=== PATIENT | male | born 1930 | race Caucasian/White ===

== ENCOUNTER 2017-07-21 07:06 | Inpatient (IN) | payer OTHER ==
[2017-07-21 08:08] LABS: Absolute Lymphocytes (CBC) 0.8 K/uL (0.7-4.9); Absolute Monocytes 0.7 K/uL (0.1-1.3); Absolute Neutrophil 11.5 K/uL (1.8-8.0); Basophils % 0.3 % (0-1.3); Hematocrit 40.5 % (39.6-49.0); Lymphocytes % 6.3 % (15.3-44.8); MCH 29.8 pg (27.0-35.0); MCV 90.5 fL (80-100); MPV 8.2 fL (7.6-11.3); Monocytes % 4.9 % (3.3-12.3); RBC Red Blood Cell Count 4.48 M/uL (4.33-5.43)
[2017-07-21 08:20] LABS: Potassium 4.5 mEq/L (3.6-5.0)
[2017-07-21 08:27] LABS: Bilirubin Direct 0.2 mg/dL (0-0.2); Protein, Total 6.8 g/dL (6.0-8.3)
--- NOTE | 2017-07-21 08:33 | RAD REPORT ---
EXAM DESCRIPTION: RAD - Abdomen 1 View (KUB) - 07/21/2017 8:09 am CLINICAL HISTORY: Abdominal pain COMPARISON: CT study July 06 FINDINGS: Contrast material is present in the GI tract. There is a moderately large stool volume pre sent particularly in the right side colon. No extravasation of contrast seen. There is no large or sm all bowel obstruction seen. No free air or pneumatosis. Numerous surgical clips are seen in the mid r ight-sided lower left side abdomen. Biliary stent is in place in the right upper quadrant appearing p roperly positioned. Air is identifiable within the biliary tree, not unexpected with the stent in kirt ce. Lower lumbar degenerative changes. No acute bone finding. IMPRESSION: Biliary stent is in place appearing well positioned. Pneumobilia is present, normal when a stent is in place. Large stool volume in the colon. No obstruction, free air or other emergent finding.
[2017-07-21 09:57] LABS: Urine Blood NEGATIVE (NEG); Urine Glucose TRACE (NEG); Urine Protein TRACE (NEG); Urine pH 5.5 (5.0-7.0)
[2017-07-21 09:59] LABS: Urine Bacteria <20 /HPF (NONE SEEN); Urine Culture Reflex Order NOT NEEDED; Urine Mucus SLIGHT /HPF (NONE SEEN); Urine RBC <5 /HPF (NONE SEEN)
--- NOTE | 2017-07-21 10:20 | RAD REPORT ---
EXAM DESCRIPTION: CTAbdomen Pelvis W Contrast - 07/21/2017 10:00 am CLINICAL HISTORY: Abdominal pain. Recent ERCP COMPARISON: 07/06/2017 TECHNIQUE: Biphasic CT imaging of the abdomen and pelvis was performed with 100 ml non-ionic IV cont rast. All CT scans are performed using dose optimization technique as appropriate and may include automated exposure control or mA/KV adjustment according to patient size. FINDINGS: Mild linear subsegmental atelectasis is present both lung bases.Small hiatal hernia is pre sent. Moderate dilatation of the gallbladder and biliary tree is present. Mild pericholecystic inflammatory changes are identified. Moderate pneumobilia is seen with a common bile duct stent in place. No aggr essive liver lesion seen. The spleen, pancreas and adrenal glands are within normal limits. Small rig ht renal cysts are present. Inferior right renal cortical cyst measuring 16 x 12 mm is noted. [address] one is present in the inferior calyx of the left kidney without hydronephrosis. No bowel obstruction, free air, free fluid or abscess. Small fat containing ventral hernia is present . Postsurgical changes are seen involving the anterior abdominal wall. Wide neck hernia along the ant erior abdominal wall inferiorly containing transverse colon is again noted, without acute component. Fat containing inguinal hernias are present bilaterally, greater on the left. Sigmoid diverticulosis is seen without diverticulitis The appendix is normal. Aortic atherosclerosis. No evidence of signifi cant lymphadenopathy. No suspicious bony findings. IMPRESSION: Common bile duct stent is in place with prominent pneumobilia is seen. The gallbladder i s distended mildly with mild pericholecystic inflammatory changes. No peripancreatic inflammatory changes seen. 6 mm stone in the right kidney without hydronephrosis. Mild sigmoid diverticulosis coli without diverticulitis.
[2017-07-21 10:25] LABS: Blood Morphology Comment NOT SEEN (NOT SEEN); Platelet Estimate ADEQ; Urine White Blood Cell Casts OK
--- NOTE | 2017-07-21 10:53 | EDPHYS ---
Physician Documentation [facility] Name: Valente Armas Age: 86 yrs Sex: Male : 1930 Arrival Date: 07/21/2017 Time: 07:10 Bed 14 Private MD: Hermelindo Serra V ED Physician Junito Calvo HPI: 07/21 07:20 This 86 yrs old Male presents to ER via Unassigned with complaints of rn Abdominal Pain. 07:20 The patient presents with abdominal pain right lower quadrant. Onset: The rn symptoms/episode began/occurred last night. The symptoms do not radiate. Associated signs and symptoms: Pertinent positives: nausea, Pertinent negatives: anorexia, blood in stools, chest pain, constipation, diarrhea, dysuria, fever, shortness of breath, testicular pain, vomiting, vomiting blood. Modifying factors: The symptoms are alleviated by nothing, the symptoms are aggravated by touching the area. Severity of pain: At its worst the pain was moderate in the emergency department the pain has improved. The patient has experienced similar episodes in the past. Reports has been having intermittent abd pain for " a while", reports had ERCP performed yesterday for gallstone, states was having a little pain after procedure, got worse at night, now better, assoc with nausea, no fever/vomiting/diarrhea, states this abd pain a little different from previous abd pain. . Historical: - Allergies: 07:30 No Known Allergies; jl7 - Home Meds: 09:34 Benadryl 25 mg Oral cap [Active]; Co Q-10 oral oral [Active]; Eliquis 2.5 mg oral tab 1 jl7 tab [Active]; folic acid 1 mg Oral tab [Active]; furosemide 40 mg Oral tab 1 tab [Active]; Klor-Con 10 10 mEq Oral TbER [Active]; Lantus 100 unit/mL Sub-Q soln [Active]; Nexium 40 mg Oral cpDR 1 cap once daily [Active]; Novolog 100 unit/mL Sub-Q soln [Active]; amiodarone 100 mg Oral tab 1 tab once daily [Active]; simvastatin 40 mg Oral tab 1 tab once daily [Active]; metoprolol tartrate 25 mg Oral tab [Active]; valsartan 320 mg oral tab 1 tab once daily [Active]; VITEYES twice a day [Active]; - PMHx: 07:30 Diabetes - IDDM; Atrial Fib; GERD; Hyperlipidemia; Hypertension; jl7 09:34 macular degeneration; jl7 - PSHx: 07:30 CABG; Intestinal Sx; jl7 - Immunization history:: Adult Immunizations up to date. - Family history:: not pertinent. - Social history:: Smoking status: Patient/guardian denies using tobacco. - Hospitalizations: : No recent hospitalization is reported. ROS: 07:20 Constitutional: Negative for fever, chills, and weight loss, Eyes: Negative for injury, rn pain, redness, and discharge, Neck: Negative for injury, pain, and swelling, Cardiovascular: Negative for chest pain, palpitations, and edema, Respiratory: Negative for shortness of breath, cough, wheezing, and pleuritic chest pain, Abdomen/GI: Negative for vomiting, diarrhea, and constipation, Back: Negative for injury and pain, MS/Extremity: Negative for injury and deformity, Skin: Negative for injury, rash, and discoloration, Neuro: Negative for headache, weakness, numbness, tingling, and seizure. Exam: 07:20 Constitutional: This is a well developed, well nourished patient who is awake, alert, rn and in no acute distress. Head/Face: Normocephalic, atraumatic. Cardiovascular: Regular rate and rhythm with a normal S1 and S2. No gallops, murmurs, or rubs. Respiratory: Lungs have equal breath sounds bilaterally, clear to auscultation and percussion. No rales, rhonchi or wheezes noted. No increased work of breathing, no retractions or nasal flaring. Abdomen/GI: soft, mild tenderness RLQ, no rebound, small periumbilical hernia that is easily reducible, bilateral healing ecchymosis RLQ/LLQ, no peritoneal signs. Skin: Warm, dry with normal turgor. Normal color with no rashes, no lesions, and no evidence of cellulitis. MS/ Extremity: Pulses equal, no cyanosis. Neurovascular intact. Full, normal range of motion. Equal circumference. Neuro: Awake and alert, GCS 15, oriented to person, place, time, and situation. Cranial nerves II-XII grossly intact. Motor strength 5/5 in all extremities. Sensory grossly intact. Vital Signs: 07:30 BP 140 / 88; Pulse 78; Resp 14 S; Pulse Ox 98% on R/A; Weight 72.57 kg (R); Height 5 jl7 ft. 6 in. (167.64 cm) (R); Pain 5/10; 08:30 BP 133 / 60; Pulse 60; Resp 14 S; Pulse Ox 99% on R/A; jl7 09:16 BP 124 / 60; Pulse 63; Resp 16 S; Pulse Ox 96% on R/A; jl7 10:20 BP 136 / 65; Pulse 62; Resp 18; Pulse Ox 98% ; Pain 3/10; jl7 07:30 Body Mass Index 25.82 (72.57 kg, 167.64 cm) jl7 MDM: 07:12 Patient medically screened. rn 10:50 ED course: Consulted with Dr. Benton, concern on their part was that patient has rn cholangitis, they sent prescription for abx, but unsure if patient picked it up, will admit to Dr. serra with Dr. Benton consult. Will defer surgical consult to Dr. Serra/Dr. Benton. Abx given.. 07/21 07:19 Order name: Basic Metabolic Panel; Complete Time: 09:20 rn 07/21 07:19 Order name: CBC with Diff; Complete Time: 10:30 rn 07/21 07:19 Order name: Hepatic Function; Complete Time: 09:20 rn 07/21 07:19 Order name: Lipase; Complete Time: 09:20 rn 07/21 07:19 Order name: Urine Microscopic Only; Complete Time: 10:30 rn 07/21 08:11 Order name: CBC Smear Scan; Complete Time: 10:30 EDMS 07/21 07:19 Order name: IV Saline Lock; Complete Time: 07:49 rn 07/21 07:19 Order name: Labs collected and sent; Complete Time: 07:49 rn 07/21 07:19 Order name: Urine Dipstick-Ancillary (obtain specimen); Complete Time: 09:01 rn 07/21 07:19 Order name: CT Abd/Pelvis - W/Contrast; Complete Time: 10:30 rn 07/21 07:19 Order name: XRAY KUB; Complete Time: 09:20 rn 07/21 08:30 Order name: Urine Dipstick--Ancillary (enter results); Complete Time: 10:30 mw2 Administered Medications: 11:18 Drug: Rocephin - (cefTRIAXone) 1 grams Route: IVPB; Infused Over: 2 mins; Site: right jl7 antecubital; 11:20 Follow up: IV Status: Completed infusion 7 11:23 Drug: Flagyl 500 mg Volume: 100 ml; Route: IVPB; Rate: 200 ml/hr; Infused Over: 30 jl7 mins; Site: right antecubital; 12:06 Follow up: Response: No adverse reaction; IV Status: Completed infusion 7 Disposition: 07/21/17 10:52 Hospitalization ordered by Hermelindo Serra for Inpatient Admission. Preliminary diagnosis is Cholangitis. - Bed requested for Telemetry/MedSurg (Inpatient). - Status is Inpatient Admission. jl - Condition is Stable. - Problem is an ongoing problem. - Symptoms have improved. UTI on Admission? No Signatures: Dispatcher [employer] EDJunito Anton MD MD rn Leal, Jahala, RN RN [facility] Dung Gottlieb mw2
--- NOTE | 2017-07-21 10:53 | ER ---
Nurse's Notes [facility] Name: Valente Armas Age: 86 yrs Sex: Male : 1930 Arrival Date: 07/21/2017 Time: 07:10 Bed 14 Private MD: Hermelindo Serra V Diagnosis: Cholangitis Presentation: 07/21 07:25 Presenting complaint: Patient states: Stone removal yesterday from duct, lower right jl7 quadrant pain began last night. Reports nausea, denies V/D, took a Zofran prior to arrival. Transition of care: patient was not received from another setting of care. Onset of symptoms was July 21, 2017. Care prior to arrival: None. 07:25 Method Of Arrival: Ambulatory [facility] 07:25 Acuity: BEBETO 3 jl7 07:30 Initial Sepsis Screen: Does the patient meet any 2 criteria? No. Patient's initial jl7 sepsis screen is negative. Does the patient have a suspected source of infection? No. Patient's initial sepsis screen is negative. Triage Assessment: 07:25 General: Appears in no apparent distress. uncomfortable, Behavior is calm, cooperative, jl7 appropriate for age. Pain: Complains of pain in right lower quadrant Pain does not radiate. Pain currently is 5 out of 10 on a pain scale. Quality of pain is described as aching, dull, Pain began 1 day ago. Is continuous, Alleviated by medications. EENT: No signs and/or symptoms were reported regarding the EENT system. Neuro: Level of Consciousness is awake, alert, obeys commands, Oriented to person, place, time, situation. Cardiovascular: Patient's skin is warm and dry. Respiratory: Airway is patent Respiratory effort is even, unlabored, Respiratory pattern is regular, symmetrical. GI: Abdomen is round non-distended, Abd is soft X 4 quads Abdomen is tender to palpation in right lower quadrant. : No signs and/or symptoms were reported regarding the genitourinary system. Derm: Skin is pink, warm \\T\\ dry. Musculoskeletal: No signs and/or symptoms reported regarding the musculoskeletal system. Historical: - Allergies: 07:30 No Known Allergies; jl7 - Home Meds: 09:34 Benadryl 25 mg Oral cap [Active]; Co Q-10 oral oral [Active]; Eliquis 2.5 mg oral tab 1 jl7 tab [Active]; folic acid 1 mg Oral tab [Active]; furosemide 40 mg Oral tab 1 tab [Active]; Klor-Con 10 10 mEq Oral TbER [Active]; Lantus 100 unit/mL Sub-Q soln [Active]; Nexium 40 mg Oral cpDR 1 cap once daily [Active]; Novolog 100 unit/mL Sub-Q soln [Active]; amiodarone 100 mg Oral tab 1 tab once daily [Active]; simvastatin 40 mg Oral tab 1 tab once daily [Active]; metoprolol tartrate 25 mg Oral tab [Active]; valsartan 320 mg oral tab 1 tab once daily [Active]; VITEYES twice a day [Active]; - PMHx: 07:30 Diabetes - IDDM; Atrial Fib; GERD; Hyperlipidemia; Hypertension; jl7 09:34 macular degeneration; jl7 - PSHx: 07:30 CABG; Intestinal Sx; jl7 - Immunization history:: Adult Immunizations up to date. - Family history:: not pertinent. - Social history:: Smoking status: Patient/guardian denies using tobacco. - Hospitalizations: : No recent hospitalization is reported. Screenin:52 Abuse screen: Denies threats or abuse. Denies injuries from another. Nutritional jl7 screening: No deficits noted. Tuberculosis screening: No symptoms or risk factors identified. Fall Risk IV access (20 points). Total Barriga Fall Scale indicates No Risk (0-24 pts). Assessment: 07:52 General: see triage assessment. GI: Bowel sounds present X 4 quads. jl7 08:01 Reassessment: Pt done drinking oral contrast, CT notified. jl7 09:00 Reassessment: No changes from previously documented assessment. Patient and/or family jl7 updated on plan of care and expected duration. Pain level reassessed. Patient is alert, oriented x 3, equal unlabored respirations, skin warm/dry/pink. 09:48 Reassessment: Pt to CT. jl7 10:20 Reassessment: Pt returned from CT. Pt states "I'm feeling much better. My pain is down jl7 to a 2 or 3 now.". 11:30 Reassessment: Patient and/or family updated on plan of care and expected duration. Pain jl7 level reassessed. Patient is alert, oriented x 3, equal unlabored respirations, skin warm/dry/pink. Vital Signs: 07:30 BP 140 / 88; Pulse 78; Resp 14 S; Pulse Ox 98% on R/A; Weight 72.57 kg (R); Height 5 jl7 ft. 6 in. (167.64 cm) (R); Pain 5/10; 08:30 BP 133 / 60; Pulse 60; Resp 14 S; Pulse Ox 99% on R/A; jl7 09:16 BP 124 / 60; Pulse 63; Resp 16 S; Pulse Ox 96% on R/A; jl7 10:20 BP 136 / 65; Pulse 62; Resp 18; Pulse Ox 98% ; Pain 3/10; jl7 07:30 Body Mass Index 25.82 (72.57 kg, 167.64 cm) jl7 ED Course: 07:10 Patient arrived in ED. mr 07:10 Hermelindo Serra MD is Private Physician. mr 07:11 Michael Horton RN is Primary Nurse. jl7 07:12 Junito Calvo MD is Attending Physician. rn 07:27 Triage completed. jl7 07:30 Arm band placed on right wrist. jl7 07:50 Radiology exam delayed due to nurses drawing labs. jb2 07:52 Patient has correct armband on for positive identification. Placed in gown. Bed in low jl7 position. Call light in reach. Side rails up X 1. athletic monitor on. Pulse ox on. NIBP on. Warm blanket given. 07:52 Initial lab(s) drawn, by ne, sent to lab. Urine collected: clean catch specimen. jl7 Inserted saline lock: 20 gauge in right antecubital area, using aseptic technique. Blood collected. 08:06 X-ray completed. Patient tolerated procedure well. Patient moved to radiology via jb2 wheelchair. 08:06 XRAY KUB In Process Unspecified. EDMS 10:00 CT Abd/Pelvis - W/Contrast In Process Unspecified. EDMS 10:02 CT completed. Patient tolerated procedure well. Patient moved to CT via stretcher. Patient moved back from CT. 10:51 Hermelindo Serra MD is Hospitalizing Provider. rn 12:56 No provider procedures requiring assistance completed. Patient admitted, IV remains in jl7 place. intact, No redness/swelling at site. Administered Medications: 11:18 Drug: Rocephin - (cefTRIAXone) 1 grams Route: IVPB; Infused Over: 2 mins; Site: right jl7 antecubital; 11:20 Follow up: IV Status: Completed infusion jl7 11:23 Drug: Flagyl 500 mg Volume: 100 ml; Route: IVPB; Rate: 200 ml/hr; Infused Over: 30 jl7 mins; Site: right antecubital; 12:06 Follow up: Response: No adverse reaction; IV Status: Completed infusion jl7 Outcome: 10:52 Decision to Hospitalize by Provider. rn 12:56 Admitted to Med/surg accompanied by tech, family with patient, via wheelchair, room jl7 216, with chart, Report called to ALEAH Partida 12:56 Condition: stable 12:56 Discharge instructions given to patient, family, Instructed on the need for admit, Demonstrated understanding of instructions. 13:16 Patient left the ED. 7 Signatures: Dispatcher [employer] Shellie JoseannieDarwin Susan sj Nieto, Roman, MD MD rn Leal, Jahala, RN RN [facility]
[2017-07-21] MEDS ORDERED: METRONIDAZOLE 500mg IVPB 500 MG/100 ML BAG IV ONE (11:02)
[2017-07-21] MEDS ORDERED: CEFTRIAXONE/SWI 1gm 1 GM/10 ML SYR ONE (11:02)
[2017-07-21] MEDS ORDERED: Morphine 2 MG/2 ML SYR IV PRN (12:55)
[2017-07-21] MEDS ORDERED: ACETAMINOPHEN 500 MG TAB PO PRN (12:55)
[2017-07-21] MEDS ORDERED: ONDANSETRON 4 MG/2 ML VIAL IV PRN (12:55)
[2017-07-21] MEDS: D5 0.45 NS 1,000 ML IV SCH ×2 (15:08→20:55)
[2017-07-21 15:46] VITALS: BMI 23.6
[2017-07-21] MEDS: METRONIDAZOLE 500mg IVPB 500 MG/100 ML BAG IV SCH (18:08)
--- NOTE | 2017-07-21 19:37 | P.HP ---
Certification for Inpatient Patient admitted to: Inpatient With expected LOS: >2 Midnights Practitioner: I am a practitioner with admitting privileges, knowledge of patient current condition, hospital course, and medical plan of care. Services: Services provided to patient in accordance with Admission requirements found in Title 42 Section 412.3 of the Code of Federal Regulations Patient History Date of Service: 07/21/17 Reason for admission: ABDOMEN PAIN SP ERCP History of Present Illness: MR. KEN HAS HAD ERCP FOR STONES IN BILE DUCT. HE HAS LARGE STONES PER DR. SYED. HE IS HERE WITH ABDOMEN PAIN AND RADIATION TO BACK. HIS LIPASE IS 242. HE HAS POST ERCP PANCREATITIS. NOW WHEN I SAW HIM AT LUNCH , HE IS FEELING A LOT BETTER. Allergies No Known Drug Allergies Allergy (Verified 03/23/14 16:56) Unknown No Known Allergies Allergy (Uncoded 07/21/17 13:20) Unknown Home Medications: Amiodarone HCl [Pacerone] 100 mg PO BEDTIME 07/21/17 Apixaban [Eliquis] 2.5 mg PO DAILY 07/21/17 Diphenhydramine HCl [Benadryl] 12.5 mg PO BEDTIME 07/21/17 Esomeprazole Mag Trihydrate [Nexium] 40 mg PO DAILY 07/21/17 Folic Acid 1 mg PO DAILY 07/21/17 Furosemide [Lasix] 40 mg PO M,,07/21/17 Insulin Aspart [Novolog Flexpen] 7 unit SQ TID 07/21/17 Insulin Glargine,Hum.rec.anlog [Lantus Solostar] 30 units SQ DAILY 07/21/17 Metoprolol Succinate [Toprol Xl] 25 mg PO BID 07/21/17 Multivitamin [Multivitamins] 1 each PO DAILY 07/21/17 Potassium Oral Tab [Klor-Con 10 mEq Tab] 10 meq PO M,W,F 07/21/17 Simvastatin [Simvastatin] 40 mg PO DAILY 07/21/17 Ubidecarenone/Vit E/Vit E Mix [Co-Enzyme Q10 100 mg Softgel] 200 mg PO BID 07/21 Valsartan [Valsartan] 320 mg PO DAILY 07/21/17 - Past Medical/Surgical History Has patient received pneumonia vaccine in the past: Yes Diabetic: Yes -: flu -: iddm -: gerd -: dysrhythmia -: DE -: CABAG -: intestinal surgery -: ERCP -: CATARAT -: prostate sx - Family History parents -: Heart disease - Social History Smoking Status: Never smoker Alcohol use: No CD- Drugs: No Caffeine use: No Place of Residence: Home Review of Systems 10-point ROS is otherwise unremarkable General: Weakness, Malaise Physical Examination - Vital Signs Temperature: 98.2 F Blood Pressure: 145/78 Pulse: 70 Respirations: 18 Pulse Ox (%): 99 - Physical Exam General: Alert, In no apparent distress HEENT: Atraumatic, PERRLA, Mucous membr. moist/pink, EOMI, Sclerae nonicteric Neck: Supple, 2+ carotid pulse no bruit, No LAD, Without JVD or thyroid abnormality Respiratory: Clear to auscultation bilaterally, Normal air movement Cardiovascular: Regular rate/rhythm, Normal S1 S2 Gastrointestinal: No ascites, No tenderness (MULTIPLE INCISIONAL HERNIAS IN ABDOMEN) Musculoskeletal: No tenderness Integumentary: No rashes Neurological: Normal gait, Normal speech, Normal strength at 5/5 x4 extr, Normal tone, Normal affect Lymphatics: No axilla or inguinal lymphadenopathy - Studies Laboratory Data (last 24 hrs) 07/21/17 07:45: WBC 13.5 H, Hgb 13.4 L, Hct 40.5, Plt Count 250 07/21/17 07:45: Sodium 137, Potassium 4.5, BUN 16, Creatinine 1.16, Glucose 207 H, Total Bilirubin 1.0, AST 20, ALT 18, Alkaline Phosphatase 118, Lipase 248 H Assessment and Plan - Problems (Diagnosis) (1) Pancreatitis Current Visit: Yes Status: Acute Plan: SP ERCP STABLE EXPECTED. DC N A DAY OR TWO FULL LIQUIDS IV ABX. (2) Atrial fibrillation Current Visit: No Status: Chronic Plan: NO CHANGES. RESUME MEDS - Advance Directives Does patient have a Living Will: No Does patient have a Durable POA for Healthcare: No
[2017-07-21] MEDS ORDERED: DIPHENHYDRAMINE 25 MG TAB/CAP PO SCH (21:00)
[2017-07-21] MEDS ORDERED: AMIODARONE HCL 200 MG TAB PO SCH (21:00)
[2017-07-21] MEDS: CEFTRIAXONE/SWI 1gm 1 GM/10 ML SYR IV SCH (21:32)
[2017-07-21] MEDS: METOPROLOL XL 25 MG TAB PO SCH (21:33)
[2017-07-21] MEDS: INSULIN LISPRO 100 UNIT/1 ML SQ SCH (23:10)
[2017-07-22 01:47] VITALS: O2SAT 97
[2017-07-22] MEDS: METRONIDAZOLE 500mg IVPB 500 MG/100 ML BAG IV SCH ×2 (02:06→09:00)
[2017-07-22] MEDS: D5 0.45 NS 1,000 ML IV SCH (02:08)
[2017-07-22 05:30] LABS: Absolute Lymphocytes (CBC) 1.5 K/uL (0.7-4.9); Absolute Monocytes 0.8 K/uL (0.1-1.3); Absolute Neutrophil 5.1 K/uL (1.8-8.0); Basophils % 0.6 % (0-1.3); Eosinophils % 7.9 % (0-4.4); Hematocrit 36.4 % (39.6-49.0); MCH 30.2 pg (27.0-35.0); MCV 91.2 fL (80-100); MPV 8.7 fL (7.6-11.3); Monocytes % 9.5 % (3.3-12.3); RBC Red Blood Cell Count 3.99 M/uL (4.33-5.43)
[2017-07-22 05:54] LABS: Albumin 2.9 g/dL (3.2-5.5); Bilirubin Direct 0.2 mg/dL (0-0.2); Bilirubin Total 0.6 mg/dL (0.3-1.2); Potassium 4.6 mEq/L (3.6-5.0); Protein, Total 5.5 g/dL (6.0-8.3)
[2017-07-22] MEDS ORDERED: ATORVASTATIN 20 MG TAB PO SCH (09:00)
[2017-07-22] MEDS: INSULIN LISPRO 100 UNIT/1 ML SQ SCH (09:00)
[2017-07-22] MEDS ORDERED: APIXABAN 2.5 MG TABLET PO SCH (09:00)
[2017-07-22] MEDS ORDERED: PANTOPRAZOLE 40MG TABLET PO SCH (09:00)
[2017-07-22] MEDS ORDERED: FOLIC ACID 1 MG TABLET PO SCH (09:00)
[2017-07-22 09:03] VITALS: BP 140/63; TEMP 97.2
--- NOTE | 2017-07-22 11:04 | CON ---
Date of Consultation: 07/21/2017 Reason For Consultation: Abdominal pain, post ERCP. History Of Present Illness: Mr. Simental is an 86-year-old gentleman, who originally several weeks a go presented with cholangitis due to fever, chills, and sepsis. He underwent ERCP with finding of la rge stone and relatively small biliary ductal opening. Stent was placed, drainage was made. In bo tion to that, the cholangitis was drained. Postoperatively, the patient did fine; however, over the night, he had developed abdominal pain that became severe abdominal pain located in the epigastrium, radiating to the back. Had some nausea. No real vomiting. Denies any fever, chills. No history of hematemesis, melena, or hematochezia. No change of color of urine or stool. As a result, he came t o the emergency room and was admitted. However, upon coming to the hospital, he rapidly improved. At this time, he has only mild epigastric soreness. He is hungry, he wants to eat. Passing gas. Again, no history of hematemesis, melena, o r hematochezia. No fever or chills. Past Medical History: In addition to hypertension, diabetes. Past Surgical History: Not related to above. Family History: Denies any gastrointestinal malignancy in the family. Social History: Unchanged. Psychiatric History: Unchanged. Review of Systems: Unchanged other than above. He did have significant weight loss several weeks prior during the episo jocelyn of cholangitis. Physical Examination: General: Elderly male, at this time no other acute distress noted. He is completely alert, oriented , and able to give very good history. His is sitting on his bedside. His neighbor is on the ot her site, who participated in the care of this elderly couple. HEENT: Atraumatic, normocephalic. No icterus. No new wasting. Oropharyngeal is clear. Neck: Supple. No lymphadenopathy. Trachea central in position. Chest: Clear to auscultation and percussion. Cardiovascular: Normal S1, S2. No S3, no S4. Abdomen: Soft. Minimum tenderness if at all upon palpation. No Webb sign. No rebound tenderness . Bowel sounds are excellent. No hepatomegaly. No splenomegaly. No ascites. No succussion splash . Extremities: Upper and lower extremities are normal, symmetrical. Neurological: Alert and oriented x3. Intact memory, mentation, and judgment. Can move all parts of the extremities. Good sense of humor. Dermatologic: Normal examination on the exposed skin area. No evidence of any icterus or itching no kiko. Diagnostic Data: Reviewed and analyzed. WBC count is borderline elevation likely related to the str ess of the pain. Lipase, pancreatic enzyme is elevated. Liver enzymes are completely normal includi ng bilirubin. Radiologic data reviewed. Impression, Plan, And Recommendation: Mr. Simental is an elderly gentleman, who had difficult biliar y anatomy, severe choledocholithiasis with obstruction that has caused his original cholangitis. Aft er drainage, the cholangitis has resolved. The patient seems to have presented with mild pancreatitis that is already getting better. Given thi s situation, I will introduce his diet, continue to treat him with antibiotic, make rapid oral transi tion. He also states that he does not need any more pain medications. The patient typically behaving like a mild post ERCP pancreatitis. If he tolerates the diet barring any other situation, consider further outpatient treatment. I have communicated with his attending doctor, Dr. Serra and we concurred upon the treatment process. I have discussed with the patient, his family, and his neighbor and answered all of their questions to their satisfaction. They are quite happy. Once the patient is discharged, I will see him as an outpatient in 1-2 weeks. Future plan is to repeat his ERCP to take out any residual stone and the st ent. The patient and his are very clear about the plan of action as before. Therefore, the management otherwise will be unchanged. ALEJANDRA/PORSHA Voice ID: [id number] Report ID: [id number]
[2017-07-22] MEDS: CEFTRIAXONE/SWI 1gm 1 GM/10 ML SYR IV SCH (11:09)
[2017-07-22] MEDS: METOPROLOL XL 25 MG TAB PO SCH (11:09)
[2017-07-22] MEDS ORDERED: POTASSIUM CL SA 10 MEQ TAB PO SCH (17:00)
--- NOTE | 2017-07-22 22:28 | P.DS ---
Admission Date: 07/21/17 Discharge Date: 07/22/17 Disposition: ROUTINE DISCHARGE Discharge Condition: FAIR Reason for Admission: ABDOMEN PAIN SP ERCP - Problems (1) Pancreatitis Onset Date: 07/22/17 Status: Acute (2) Atrial fibrillation Status: Chronic Brief History of Present Illness: MR. KEN HAS HAD ERCP FOR STONES IN BILE DUCT. HE HAS LARGE STONES PER DR. SYED. HE IS HERE WITH ABDOMEN PAIN AND RADIATION TO BACK. HIS LIPASE IS 242. HE HAS POST ERCP PANCREATITIS. NOW WHEN I SAW HIM AT LUNCH , HE IS FEELING A LOT BETTER. HE HAS IMPROVED SIGNIFINCANTLY HE WILL TAKE IT EASY ON FOOD, FU WITH DR Daniel SYED FOR REMOVAL OF MORE STONES AND THEN GB BY SURGEON. Vital Signs/Physical Exam: Temp Pulse Resp BP Pulse Ox 97.2 F 61 18 140/63 98 07/22/17 08:00 07/22/17 08:00 07/22/17 08:00 07/22/17 08:00 07/22/17 08:00 Laboratory Data at Discharge: WBC 8.1 K/uL (4.3-10.9) D 07/22/17 04:24 Hgb 12.1 g/dL (13.6-17.9) L 07/22/17 04:24 Hct 36.4 % (39.6-49.0) L 07/22/17 04:24 Plt Count 195 K/uL (152-406) D 07/22/17 04:24 Sodium 137 mEq/L (135-145) 07/22/17 04:24 Potassium 4.6 mEq/L (3.6-5.0) 07/22/17 04:24 BUN 13 mg/dL (6-20) 07/22/17 04:24 Creatinine 1.08 mg/dL (0.61-1.24) 07/22/17 04:24 Glucose 140 mg/dL (65-120) H 07/22/17 04:24 Total Bilirubin 0.6 mg/dL (0.3-1.2) 07/22/17 04:24 AST 16 IU/L (10-42) 07/22/17 04:24 ALT 11 IU/L (10-60) 07/22/17 04:24 Alkaline Phosphatase 96 IU/L (42-121) 07/22/17 04:24 Lipase 43 U/L (22-51) 07/22/17 04:24 Home Medications: Amiodarone HCl [Pacerone] 100 mg PO BEDTIME 07/21/17 Apixaban [Eliquis *] 2.5 mg PO DAILY 07/21/17 Diphenhydramine HCl [Benadryl] 12.5 mg PO BEDTIME 07/21/17 Esomeprazole Mag Trihydrate [Nexium] 40 mg PO DAILY 07/21/17 Folic Acid 1 mg PO DAILY 07/21/17 Furosemide [Lasix*] 40 mg PO M,W,F 07/21/17 Insulin Aspart [Novolog Flexpen] 7 unit SQ TID 07/21/17 Insulin Glargine,Hum.rec.anlog [Lantus Solostar] 30 units SQ DAILY 07/21/17 Metoprolol Succinate [Toprol Xl*] 25 mg PO BID 07/21/17 Multivitamin [Multivitamins] 1 each PO DAILY 07/21/17 Potassium Oral Tab [Klor-Con 10 mEq Tab*] 10 meq PO M,W,F 07/21/17 Simvastatin 40 mg PO DAILY 07/21/17 Ubidecarenone/Vit E/Vit E Mix [Co-Enzyme Q10 100 mg Softgel] 200 mg PO BID 07/21 Valsartan 320 mg PO DAILY 07/21/17 Patient Discharge Instructions: ORAL LIQUIDS- SOUP,BROTH ETC- UNTIL PAIN IS GONE. Followup: Hermelindo Serra MD [Primary Care Provider] - (Follow up in office in 2 weeks. Call to schedule an appointment. ) Dougie Syed MD [ACTIVE - CAN ADMIT] - (Follow up in [facility] in 2 weeks. Call to schedule an appointment. )
== END 2017-07-22 11:31 | disposition home or self-care (01) | DRG 440 ==
LOC: ER 07:06 → ERHOLD 11:09 → 2ND 12:55
PROVIDERS: ADMIT Internal Medicine; ATTEND Internal Medicine
DX: K85.90 Acute pancreatitis without necrosis or infection, unspecified (principal); I48.2 Chronic atrial fibrillation; E11.9 Type 2 diabetes mellitus without complications; K21.9 Gastro-esophageal reflux disease without esophagitis; I25.2 Old myocardial infarction
CPT/HCPCS: 36415; 74018; 74177; 80048; 80076; 81003; 81015; 82962; 83690; 85025; 96365; 96375; 99285; J0696; Q9967

== ENCOUNTER 2017-08-31 14:32 | Emergency (ER) | payer OTHER ==
[2017-08-31] MEDS ORDERED: ONDANSETRON 4 MG/2 ML VIAL ONE ×2 (15:38→16:44)
[2017-08-31] MEDS ORDERED: MORPHINE 4 MG/ML SYR ONE (15:38)
[2017-08-31 16:09] LABS: Potassium 4.8 mEq/L (3.6-5.0)
[2017-08-31 16:11] LABS: Absolute Lymphocytes (CBC) 1.1 K/uL (0.7-4.9); Absolute Monocytes 0.1 K/uL (0.1-1.3); Absolute Neutrophil 10.6 K/uL (1.8-8.0); Basophils % 0.2 % (0-1.3); Eosinophils % 2.4 % (0-4.4); Hematocrit 45.1 % (39.6-49.0); Lymphocytes % 8.8 % (15.3-44.8); MCH 30.1 pg (27.0-35.0); MPV 9.4 fL (7.6-11.3); Monocytes % 1.1 % (3.3-12.3); RBC Red Blood Cell Count 4.95 M/uL (4.33-5.43)
[2017-08-31 16:14] LABS: Protime INR 1.02
[2017-08-31 16:15] LABS: Albumin 4.2 g/dL (3.2-5.5); Protein, Total 7.5 g/dL (6.0-8.3)
--- NOTE | 2017-08-31 18:05 | RAD REPORT ---
EXAM DESCRIPTION: CTAbdomen Pelvis W Contrast - 08/31/2017 5:29 pm CLINICAL HISTORY: Abdominal pain. COMPARISON: 07/21/2017, 07/06/2017 TECHNIQUE: Biphasic CT imaging of the abdomen and pelvis was performed with 100 ml non-ionic IV cont rast. All CT scans are performed using dose optimization technique as appropriate and may include automated exposure control or mA/KV adjustment according to patient size. FINDINGS: The lung bases are clear.Trace pleural fluid bilaterally. Small hiatal hernia. Significant amount of contrast is present in the common bile duct and gallbladder. Moderate pneumobil ia is seen, increased since the prior study. Patchy arterial phase enhancement is seen throughout the liver with enhancement noted around the portal triads. The spleen, pancreas, adrenal glands are normal. A 6 mm stone is present in the inferior left kidney. Multiple cysts are present in both renal cortices. A small rim calcification is present inferior rig ht kidney cyst. No bowel obstruction, free air, free fluid or abscess. Prominent sigmoid diverticulosis coli without diverticulitis. Postsurgical changes are present about the small bowel and colon. The appendix is nor mal. No evidence of significant lymphadenopathy. No suspicious bony findings. IMPRESSION: Prominent pneumobilia, arterial phase enhancement surrounding the portal triads, contras t in the biliary tree are all favored to be related to recent intervention. A common bile duct stent is not clearly seen. Consider a follow-up study if patient's symptomology persists or progresses.
[2017-08-31 18:12] LABS: Blood Morphology Comment NOT SEEN (NOT SEEN); Platelet Estimate DECR
--- NOTE | 2017-08-31 19:38 | EDPHYS ---
Physician Documentation [facility] Name: Valente Armas Age: 86 yrs Sex: Male : 1930 Arrival Date: 08/31/2017 Time: 14:35 Bed External Waiting Private MD: Hermelindo Serra V ED Physician Brad Pete HPI: 08/31 16:00 This 86 yrs old Male presents to ER via Ambulatory with complaints of pm1 Abdominal Pain. 16:00 The patient presents with abdominal pain in the right upper quadrant. Onset: The pm1 symptoms/episode began/occurred today. The symptoms do not radiate. Associated signs and symptoms: Pertinent positives: nausea, Pertinent negatives: chest pain, dysuria, fever, shortness of breath, vomiting. The symptoms are described as achy. Modifying factors: The symptoms are alleviated by nothing, the symptoms are aggravated by nothing. Severity of pain: in the emergency department the pain is actually worse. The patient has been recently seen by a physician: Dr. Benton with similar presenting complaints, and a MRI was done. Patient with RUQ pain for about 8 weeks. Was admitted 6 weeks ago for cholangitis and had stent to CBD and removal of stones by Dr. Benton. Patient was seen at Dr. Benton's office today and had ERCP with removal of the stent and additional gallbladder stones. Patient was cleared to have his gallbladder removed by Dr. Benton. Patient with increased RUQ pain after procedure and feels that he cannot wait to have his gallbladder removed by the surgeon in [place] . 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 - Social history:: Smoking status: Patient/guardian denies using tobacco. - Ebola Screening: : No symptoms or risks identified at this time. ROS: 16:00 Constitutional: Negative for fever, chills, and weight loss, Eyes: Negative for injury, pm1 pain, redness, and discharge, ENT: Negative for injury, pain, and discharge, Neck: Negative for injury, pain, and swelling, Cardiovascular: Negative for chest pain, palpitations, and edema, Respiratory: Negative for shortness of breath, cough, wheezing, and pleuritic chest pain. 16:00 Back: Negative for injury and pain, : Negative for injury, bleeding, discharge, and swelling, MS/Extremity: Negative for injury and deformity, Skin: Negative for injury, rash, and discoloration, Neuro: Negative for headache, weakness, numbness, tingling, and seizure. 16:00 Abdomen/GI: Positive for abdominal pain, nausea, Negative for vomiting, diarrhea, constipation. Exam: 16:00 Constitutional: This is a well developed, well nourished patient who is awake, alert, pm1 and in no acute distress. Head/Face: Normocephalic, atraumatic. Eyes: Pupils equal round and reactive to light, extra-ocular motions intact. Lids and lashes normal. Conjunctiva and sclera are non-icteric and not injected. Cornea within normal limits. Periorbital areas with no swelling, redness, or edema. ENT: Nares patent. No nasal discharge, no septal abnormalities noted. Tympanic membranes are normal and external auditory canals are clear. Oropharynx with no redness, swelling, or masses, exudates, or evidence of obstruction, uvula midline. Mucous membranes moist. Neck: Trachea midline, no thyromegaly or masses palpated, and no cervical lymphadenopathy. Supple, full range of motion without nuchal rigidity, or vertebral point tenderness. No Meningismus. Chest/axilla: Normal chest wall appearance and motion. Nontender with no deformity. No lesions are appreciated. Cardiovascular: Regular rate and rhythm with a normal S1 and S2. No gallops, murmurs, or rubs. No pulse deficits. Respiratory: Lungs have equal breath sounds bilaterally, clear to auscultation and percussion. No rales, rhonchi or wheezes noted. No increased work of breathing, no retractions or nasal flaring. 16:00 Back: No spinal tenderness. No costovertebral tenderness. Full range of motion. Skin: Warm, dry with normal turgor. Normal color with no rashes, no lesions, and no evidence of cellulitis. MS/ Extremity: Pulses equal, no cyanosis. Neurovascular intact. Full, normal range of motion. 16:00 Abdomen/GI: Inspection: abdomen appears normal, Bowel sounds: normal, Palpation: abdomen is soft and non-tender, in all quadrants. 16:00 Neuro: Orientation: is normal, Motor: is normal, moves all fours. Vital Signs: 14:43 BP 151 / 65; Pulse 61; Resp 16 S; Temp 97.0; Pulse Ox 99% on R/A; Weight 71.21 kg (R); aa5 Height 5 ft. 9 in. (175.26 cm) (R); Pain 9/10; 15:29 BP 108 / 71; Pulse 89; Resp 20; Pulse Ox 99% ; tl3 18:51 BP 128 / 76; Pulse 91; Resp 18; Pulse Ox 99% ; tl3 14:43 Body Mass Index 23.18 (71.21 kg, 175.26 cm) aa5 MDM: 15:12 Patient medically screened. pm1 16:40 Physician consultation: Dougie Benton MD was contacted at 16:40, Talked to his [employer] and they pm1 recommended CT abdomen. Will see the patient if he is admitted. 18:00 Physician consultation: Hermelindo Serra MD was contacted at 18:00, regarding patient's pm1 condition, Will see the patient in his office in a few days if he is discharged. I am pending CT results. 19:33 Data reviewed: vital signs. Data interpreted: Pulse oximetry: on room air is 99 %. pm1 Interpretation: normal. Counseling: I had a detailed discussion with the patient and/or guardian regarding: the historical points, exam findings, and any diagnostic results supporting the discharge/admit diagnosis, lab results, radiology results, the need for outpatient follow up, a general surgeon, to return to the emergency department if symptoms worsen or persist or if there are any questions or concerns that arise at home. 08/31 15:22 Order name: Amylase, Serum pm08/31 15:22 Order name: Basic Metabolic Panel pm1 08/31 15:22 Order name: CBC with Diff pm08/31 15:22 Order name: Hepatic Function pm08/31 15:22 Order name: Lipase pm08/31 15:22 Order name: PT-INR; Complete Time: 16:39 pm1 08/31 15:22 Order name: Ptt, Activated; Complete Time: 16:39 pm1 08/31 15:22 Order name: Amylase Level; Complete Time: 16:39 EDMS 08/31 15:22 Order name: Basic Metabolic Panel; Complete Time: 16:39 EDMS 04 15:22 Order name: CBC with Automated Diff; Complete Time: 18:57 EDMS 04 15:22 Order name: Liver (Hepatic) Function; Complete Time: 16:39 EDMS 04 15:22 Order name: Lipase; Complete Time: 16:39 EDMS 04 16:44 Order name: CT Abd/Pelvis - W/Contrast: IV contrast only; Complete Time: 18:57 pm1 04 18:12 Order name: Manual Differential; Complete Time: 18:57 EDMS 04 15:22 Order name: IV Saline Lock; Complete Time: 15:35 pm1 08/31 15:22 Order name: Labs collected and sent; Complete Time: 15:35 pm1 04 15:22 Order name: NPO pm1 Administered Medications: 15:42 Drug: morphine 4 mg Route: IVP; Infused Over: 5 mins; Site: left wrist; tl3 18:53 Follow up: Response: No adverse reaction tl3 15:42 Drug: Zofran 4 mg Route: IVP; Infused Over: 3 mins; Site: left wrist; tl3 18:53 Follow up: Response: No adverse reaction tl3 17:00 Drug: Zofran 4 mg Route: IVP; Infused Over: 2 mins; Site: right wrist; tl3 18:54 Follow up: Response: No adverse reaction; Nausea is decreased tl3 20:28 Drug: morphine 2 mg Route: IVP; Infused Over: 2 mins; Site: left wrist; tl3 20:28 Follow up: Response: Medication administered at discharge. tl3 Disposition: 09/01 08:13 Co-signature as Attending Physician, Brad Pete MD I agree with the assessment and jose r plan of care. Disposition: 08/31/17 19:37 Discharged to Home. Impression: Unspecified abdominal pain - post-procedural pain. - Condition is Stable. - Discharge Instructions: Abdominal Pain, Adult. - Medication Reconciliation Form, Thank You Letter, Prescription Opioid Use form. - Follow up: Emergency Department; When: As needed; Reason: Worsening of condition. Follow up: Hermelindo Serra MD; When: 2 - 3 days; Reason: Recheck today's complaints, Continuance of care, Re-evaluation by your physician. - Problem is new. - Symptoms have improved. Signatures: Dispatcher [employer] EDBrad Bloom MD MD cha Calderon, Audri, RN RN aa5 Carmine Butt, [employer] pm1 Tamra Ferrer, RN RN tl3 Corrections: (The following items were deleted from the chart) 08/31 20:46 19:37 08/31/2017 19:37 Discharged to Home. Impression: Unspecified abdominal pain - tl3 post-procedural pain. Condition is Stable. Forms are Medication Reconciliation Form, Thank You Letter, Antibiotic Education, Prescription Opioid Use. Follow up: Emergency Department; When: As needed; Reason: Worsening of condition. Follow up: Hermelindo Serra; When: 2 - 3 days; Reason: Recheck today's complaints, Continuance of care, Re-evaluation by your physician. Problem is new. Symptoms have improved. pm1
--- NOTE | 2017-08-31 19:38 | ER ---
Nurse's Notes [facility] Name: Valente Armas Age: 86 yrs Sex: Male : 1930 Arrival Date: 08/31/2017 Time: 14:35 Bed External Waiting Private MD: Hermelindo Serra V Diagnosis: Unspecified abdominal [id number] pain Presentation: 08/31 14:41 Presenting complaint: Patient states: "I had an endoscopy to take out some gallstones aa5 out and a stent out but I think I need my gallbladder removed because I am hurting worse". Pt reports endoscopy was completed today by Dr. Benton. Pt also reports nausea and vomiting. Transition of care: patient was not received from another setting of care. Onset of symptoms was August 31, 2017. Risk Assessment: Do you want to hurt yourself or someone else? Patient reports no desire to harm self or others. Initial Sepsis Screen: Does the patient meet any 2 criteria? No. Patient's initial sepsis screen is negative. Does the patient have a suspected source of infection? No. Patient's initial sepsis screen is negative. Care prior to arrival: None. 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 - Social history:: Smoking status: Patient/guardian denies using tobacco. - Ebola Screening: : No symptoms or risks identified at this time. Screenin:29 Abuse screen: Denies threats or abuse. Nutritional screening: No deficits noted. tl3 Tuberculosis screening: No symptoms or risk factors identified. Fall Risk None identified. Assessment: 15:29 General: Appears distressed, uncomfortable, well groomed, well developed, well tl3 nourished, Behavior is calm, cooperative, appropriate for age. Pain: Complains of pain in abdomen Pain currently is 10 out of 10 on a pain scale. Neuro: No deficits noted. Level of Consciousness is awake, alert, obeys commands, Oriented to person, place, time, situation, Appropriate for age. Cardiovascular: Capillary refill < 3 seconds fingers Patient's skin is warm and dry. Respiratory: Airway is patent Respiratory effort is even, unlabored, Respiratory pattern is regular, symmetrical. GI: Bowel sounds Abdomen is tender to palpation X 4 quads. : No signs and/or symptoms were reported regarding the genitourinary system. EENT: No deficits noted. No signs and/or symptoms were reported regarding the EENT system. Derm: No deficits noted. No signs and/or symptoms reported regarding the dermatologic system. Musculoskeletal: No deficits noted. No signs and/or symptoms reported regarding the musculoskeletal system. 15:49 Reassessment: No changes from previously documented assessment. Patient is alert, tl3 oriented x 3, equal unlabored respirations, skin warm/dry/pink. pt vomited X 1 after meds. 17:00 Reassessment: Patient appears in no apparent distress at this time. No changes from tl3 previously documented assessment. Patient and/or family updated on plan of care and expected duration. Pain level reassessed. Patient is alert, oriented x 3, equal unlabored respirations, skin warm/dry/pink. 18:51 Reassessment: Patient appears in no apparent distress at this time. No changes from tl3 previously documented assessment. Patient and/or family updated on plan of care and expected duration. Pain level reassessed. Patient is alert, oriented x 3, equal unlabored respirations, skin warm/dry/pink. 20:29 Reassessment: Patient appears in no apparent distress at this time. No changes from tl3 previously documented assessment. Patient and/or family updated on plan of care and expected duration. Pain level reassessed. Patient is alert, oriented x 3, equal unlabored respirations, skin warm/dry/pink. pt awake and alert and focused. Vital Signs: 14:43 BP 151 / 65; Pulse 61; Resp 16 S; Temp 97.0; Pulse Ox 99% on R/A; Weight 71.21 kg (R); aa5 Height 5 ft. 9 in. (175.26 cm) (R); Pain 9/10; 15:29 BP 108 / 71; Pulse 89; Resp 20; Pulse Ox 99% ; tl3 18:51 BP 128 / 76; Pulse 91; Resp 18; Pulse Ox 99% ; tl3 14:43 Body Mass Index 23.18 (71.21 kg, 175.26 cm) aa5 ED Course: 14:35 Patient arrived in ED. mr 14:35 Hermelindo Serra MD is Private Physician. mr 14:42 Triage completed. aa5 14:42 Arm band placed on. aa5 15:10 Tamra Ferrer, ALEAH is Primary Nurse. tl3 15:12 Carmine Butt NP is PHCP. pm1 15:12 Brad Pete MD is Attending Physician. pm1 15:29 Patient has correct armband on for positive identification. Bed in low position. Call tl3 light in reach. Side rails up X2. Adult w/ patient. Pulse ox on. NIBP on. Warm blanket given. 15:29 No provider procedures requiring assistance completed. Inserted saline lock: 20 gauge tl3 in left wrist, using aseptic technique. 17:[address] cw1 17:23 CT completed. Patient tolerated procedure well. Patient moved to CT via stretcher. mw3 Patient moved back from CT. 17:29 CT Abd/Pelvis - W/Contrast: IV contrast only In Process Unspecified. EDMS 19:36 Hermelindo Serra MD is Referral Physician. pm1 Administered Medications: 15:42 Drug: morphine 4 mg Route: IVP; Infused Over: 5 mins; Site: left wrist; tl3 18:53 Follow up: Response: No adverse reaction tl3 15:42 Drug: Zofran 4 mg Route: IVP; Infused Over: 3 mins; Site: left wrist; tl3 18:53 Follow up: Response: No adverse reaction tl3 17:00 Drug: Zofran 4 mg Route: IVP; Infused Over: 2 mins; Site: right wrist; tl3 18:54 Follow up: Response: No adverse reaction; Nausea is decreased tl3 20:28 Drug: morphine 2 mg Route: IVP; Infused Over: 2 mins; Site: left wrist; tl3 20:28 Follow up: Response: Medication administered at discharge. tl3 Outcome: 19:37 Discharge ordered by . pm1 20:46 Patient left the ED. tl3 Signatures: Dispatcher [employer] EDKY Shellie Phillips mr ArcosZahra RN RN aa5 Fartun Allen cw1 Carmine Butt NP [employer]AL POLISHER pm1 Tamra Ferrer, ALEAH BULLARD tl3 Maribel Goodwin mw3
[2017-08-31] MEDS ORDERED: Morphine 2 MG/2 ML SYR ONE (19:56)
[2017-08-31 21:16] VITALS: TEMP 97; O2SAT 99
[2017-08-31 21:18] VITALS: BP 128/76
== END 2017-08-31 20:46 | disposition home or self-care (01) ==
LOC: ER 14:32
DX: G89.18 Other acute postprocedural pain (principal); I10 Essential (primary) hypertension; Z95.1 Presence of aortocoronary bypass graft
CPT/HCPCS: 36415; 74177; 80048; 80076; 82150; 83690; 85025; 85610; 85730; 99284; J2270; J2405 ×2; Q9967

== ENCOUNTER 2018-04-25 09:48 | Inpatient (IN) | payer OTHER ==
--- OUTSIDE RECORDS SUMMARY | 2018-04-25 09:50 | XMS REPORT | Clinical Summary ---
:1930 Author Organization [facility] Address [address] [place] [address] Care Team Providers Name Role Phone Hermelindo Serra MD Primary Care Provider Allergies No Known Allergies Medications Medication Sig Dispensed Refills Start Date End Date Status diphenhydrAMINE Take 25 mg by 0 Active (BENADRYL) 25 mg mouth capsule nightly. coenzyme Q10 (COQ-10) Take 100 mg 0 Active 100 mg capsule by mouth 2 (two) times a day. apixaban (ELIQUIS) Take by mouth 0 Active 2.5 mg tablet 2 (two) times a day. folic acid (FOLVITE) Take 1 mg by 0 Active 1 MG tablet mouth daily. furosemide (LASIX) 40 Take 40 mg by 0 Active mg tablet mouth. MWF insulin GLARGINE Inject 30 0 Active (LANTUS) 100 unit/mL Units under injection (vial) the skin every morning. therapeutic Take 1 tablet 0 Active multivitamin by mouth (THERAGRAN) tablet daily. insulin aspart Inject under 0 Active (NOVOLOG FLEXPEN the skin 3 U-100 INSULIN SUBQ) (three) times a day. vit C/vit Take by 0 Active E/lutein/min/omega-3 mouth. (OCUVITE ORAL) amIODarone (PACERONE) Take 100 mg 0 Active 100 MG tablet by mouth nightly. simvastatin (ZOCOR) Take 40 mg by 0 Active 40 MG tablet mouth every morning. esomeprazole (NexIUM) Take by mouth 0 Active 20 MG capsule every morning. metoprolol succinate Take 25 mg by 0 Active XL (TOPROL XL) 25 mg mouth 2 (two) 24 hr tablet times a day. valsartan (DIOVAN) Take 320 mg 0 Active 320 MG tablet by mouth nightly. ursodiol (ACTIGALL) Take 500 mg 0 Discontinued 500 MG tablet by mouth 8 every morning. traMADol (ULTRAM) 50 Take 1 tablet 30 tablet 0 09/11/2017 mg tablet (50 mg total) 8 by mouth every 6 (six) hours as needed for moderate pain for up to 20 days. docusate sodium Take 1 60 capsule 0 09/11/2017 (COLACE) 100 MG capsule (100 8 capsule mg total) by mouth 2 (two) times a day for 30 days. polyethylene glycol Take 17 g by 30 packet 0 09/12/2017 (MIRALAX) 17 gram mouth daily 8 packet for 30 days. acetaminophen-codeine Take 1-2 30 tablet 0 09/11/2017 (TYLENOL WITH CODEINE tablets by 8 #3) 300-30 mg per mouth every 6 tablet (six) hours as needed (severe pain) for up to 15 days. 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 09/10/2017 - Hospital Encounter General Surgery Gely, Symptomatic cholelithiasis 09/11/2017 Adriel Menendez MD 09/03/2017 Pre-Admit Testing Pre-Admission Gely, Preop examination ( Primary Dx); Appointment Testing Adriel Menendez MD Type 2 diabetes mellitus with complication , 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 09/03/2017 Office Visit General Jose Enrique Hong, Symptomatic cholelithiasis (Primary Dx); Adriel Menendez MD Choledocholithiasis after 04/24/2017 Family History Medical History Relation Name Comments Cancer Brother prostate Cancer Brother prostate Heart disease Father Heart disease Mother Relation Name Status Comments Brother Brother Father Mother Social History Tobacco Use Types Packs/Day Years Used Date Never Smoker Smokeless Tobacco: Never Used Alcohol Use Drinks/Week oz/Week Comments No Sex Assigned at Date Recorded Not on file Job Start Date Occupation Industry Not on file Not on file Not on file Travel History Travel Start Travel End No recent travel history available. Last Filed Vital Signs Vital Sign Reading Time Taken Blood Pressure 106/56 09/11/2017 12:21 PM CDT Pulse 89 09/11/2017 12:21 PM CDT Temperature 37.2 C (98.9 F) 09/11/2017 12:21 PM CDT Respiratory Rate 18 09/11/2017 12:21 PM CDT Oxygen Saturation 97% 09/11/2017 12:21 PM CDT Inhaled Oxygen Concentration - - Weight 67.6 kg (149 lb) 09/24/2017 3:23 PM CDT Height 172.7 cm (5' 8") 09/24/2017 3:23 PM CDT Body Mass Index 22.66 09/24/2017 3:23 PM CDT Plan of Treatment Health Maintenance Due Date Last Done Comments DIABETIC RETINAL EYE EXAM 1930 DIABETIC FOOT EXAM 12/04/1941 SHINGLES VACCINES (1 of 2) 12/04/1981 PNEUMOCOCCAL-13 12/04/1996 INFLUENZA VACCINE 10/28/2017 12/24/2012 PNEUMOCOCCAL POLYSACCHARIDE VACCINE AGE 65 AND OVER Completed 01/28/2010 Procedures Procedure Name Priority Date/Time Associated Diagnosis Comments POC GLUCOSE Routine 09/11/2017 11:37 Results for this AM CDT procedure are in the results section. POC GLUCOSE Routine 09/11/2017 8:01 Results for this AM CDT procedure are in the results section. POC GLUCOSE Routine 09/10/2017 8:27 Results for this PM CDT procedure are in the results section. POC GLUCOSE Routine 09/10/2017 3:41 Results for this PM CDT procedure are in the results section. POC GLUCOSE Routine 09/10/2017 11:53 Results for this AM CDT procedure are in the results section. SURGICAL PATHOLOGY Routine 09/10/2017 11:37 Results for this REQUEST AM CDT procedure are in the results section. POC GLUCOSE Routine 09/10/2017 9:46 Results for this AM CDT procedure are in the results section. CHOLECYSTECTOMY, 09/10/2017 9:05 Symptomatic LAPAROSCOPIC AM CDT cholelithiasis SC AN ELECTIVE Routine 09/10/2017 8:26 ENDOTRACHEAL AIRWAY AM CDT Procedure Note - Quan Robles MD - 09/10/2017 8:26 AM CDT Airway Performed by: QUAN ROBLES Authorized by: QUAN ROBLES Location: OR Urgency: Elective Difficult Airway: No Preoxygenated with 100% O2: Yes C-spine Precautions Maintained Throughout: Yes Mask Ventilation: Easy mask Final Airway Type: Endotracheal airway Final Endotracheal Airway: ETT Technique Used: Video laryngoscopy Laryngoscope Blade/Videolaryngoscope Blade Size: 3 ETT Size (mm): 8.0 Measured from: Lips ETT to Lips (cm): 24 Placement Verified by: CO2 detection, direct visualization and equal breath sounds Laryngoscopic view: Grade I - full view of glottis Rapid Sequence Induction (RSI): No Modified RSI: No Number of Attempts at Approach: 1 HEPATIC FUNCTION PANEL STAT 09/10/2017 7:29 Results for this AM CDT procedure are in the results section. POC GLUCOSE Routine 09/10/2017 7:06 Results for this AM CDT procedure are in the results section. ECG PRE/POST OP Routine 09/03/2017 6:29 Preop examination Results for this PM CDT Type 2 diabetes procedure are in mellitus with the results complication, section. unspecified skilled nursing insulin use status ZZESTIMATED GFR Routine 09/03/2017 6:19 Results for this PM CDT procedure are in the results section. CBC HEMOGRAM Routine 09/03/2017 6:19 Preop examination Results for this PM CDT Type 2 diabetes procedure are in mellitus with the results complication, section. 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 PROTHROMBIN TIME WITH Routine 09/03/2017 6:19 Preop examination Results for this INR PM CDT procedure are in the results section. HEMOGLOBIN A1C Routine 09/03/2017 6:19 Preop examination Results for this PM CDT Type 2 diabetes procedure are in mellitus with the results complication, section. 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 BASIC METABOLIC PANEL Routine 09/03/2017 6:19 Preop examination Results for this PM CDT Type 2 diabetes procedure are in mellitus with the results complication, section. 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 POC glucose 206 (H) 65 - 99 mg/dL [facility] DEPARTMENT OF PATHOLOGY Comment: AND GENOMIC MEDICINE [facility] Notified RN Meter ID: [id number] Materials Engineer: Sebastián Oro Performing Organization Address City/[facility] Phone Number [facility] DEPARTMENT OF PATHOLOGY AND [address] [place] [phone] GENOMIC MEDICINE Surgical pathology request (09/10/2017 11:37 AM CDT) [facility] DEPARTMENT OF PATHOLOGY AND GENOMIC MEDICINE Surgical pathology report See link below for PDF [facility] DEPARTMENT OF Lab Report PATHOLOGY AND GENOMIC MEDICINE Result status This is Final Report to [facility] DEPARTMENT OF [id number] PATHOLOGY AND GENOMIC MEDICINE Performing Organization Address City/[facility] Phone Number [facility] DEPARTMENT OF PATHOLOGY AND [address] [place] [phone] [facility] MEDICINE Hepatic function panel (09/10/2017 7:29 AM CDT)Only the most recent of2 resultswithin the time period is included. Albumin 3.1 (L) 3.5 - 5.0 g/dL [facility] DEPARTMENT OF PATHOLOGY AND GENOMIC MEDICINE Total bilirubin 0.9 0.0 - 1.2 mg/dL [facility] DEPARTMENT OF PATHOLOGY AND GENOMIC MEDICINE Bilirubin direct 0.3 0.0 - 0.3 mg/dL [facility] DEPARTMENT OF PATHOLOGY AND GENOMIC MEDICINE Alkaline phosphatase 127 40 - 129 U/L [facility] DEPARTMENT OF PATHOLOGY AND GENOMIC MEDICINE Protein 6.3 6.3 - 8.3 g/dL [facility] DEPARTMENT OF Comment: PATHOLOGY AND GENOMIC [place] 4.6-7.0 g/dL MEDICINE 1 week 4.4-7.6 g/dL 7 months-1year5.1-7.3 g/dL 1-2 years5.6-7.5 g/dL >3 years6.0-8.0 g/dL 18-150 6.3-8.3 g/dL ALT 15 5 - 50 U/L [facility] DEPARTMENT OF PATHOLOGY AND GENOMIC MEDICINE AST 20 10 - 50 U/L [facility] DEPARTMENT OF PATHOLOGY AND GENOMIC [facility] Specimen Plasma specimen Performing Organization Address City/[facility]/Zipcode Phone Number [facility] DEPARTMENT OF PATHOLOGY AND [address] [place] [phone] [facility] ECG Pre/Post Op (09/03/2017 6:29 PM CDT) Ventricular rate 72 [facility] MUSE Atrial rate 277 [facility] MUSE QRSD interval 116 [facility] QT interval 428 [facility] QTC interval 468 [facility] QRS axis 1 116 [facility] MUSE T wave axis -25 [facility]USE EKG impression Atrial fibrillation-Left posterior fascicular [facility] MUSE block-Possible Inferior infarct , age undetermined-Abnormal ECG-No previous ECGs available- Performing Organization Address [facility] Phone Number [facility] [address] [place] [address] Estimated GFR (09/03/2017 6:19 PM CDT) GFR Non Af Amer 44 (A) mL/min/1.73 m2 [facility] DEPARTMENT OF PATHOLOGY AND GENOMIC MEDICINE GFR Af Amer 54 (A) mL/min/1.73 m2 [facility] DEPARTMENT OF Comment: PATHOLOGY AND GENOMIC Chronic kidney disease: <60 mL/min/1.73m2 MEDICINE Kidney failure: <15 mL/min/1.73m2 The estimated GFR is calculated from the IDMS-traceable Modification of Diet in Renal Disease Equation. The accuracy of the calculation is poor when the creatinine is normal. Calculated values >90 mL/min/1.73m2 are not reported. This equation has not been validated in children (<18 years), women, the elderly (>70 years), or ethnic groups other than Caucasians and Americans. Specimen Plasma specimen Performing Organization Address City/[facility]/Zipcode Phone Number [facility] DEPARTMENT OF PATHOLOGY AND [address] [place] [address] [facility] Partial thromboplastin time, activated (09/03/2017 6:19 PM CDT) PTT 31.7 23.0 - 36.0 sec [facility] DEPARTMENT OF PATHOLOGY Comment: AND [facility] PTT therapeutic range for unfractionated heparin is 61.0-112.0 seconds which corresponds to Anti-Xa 0.3-0.7 U/ml. Specimen Blood Performing Organization Address City/[facility]/Zipcode Phone Number [facility] DEPARTMENT OF PATHOLOGY AND [address] [place] [address] [email or web address] [facility] Prothrombin time with INR (09/03/2017 6:19 PM CDT) Prothrombin time 14.0 12.0 - 15.0 sec [facility] DEPARTMENT OF PATHOLOGY AND GENOMIC MEDICINE INR 1.1 [facility] DEPARTMENT OF Comment: PATHOLOGY AND GENOMIC The International Normalized Ratio (INR) is a therapeutic MEDICINE monitoring tool for patients who are stable on oral anticoagulant therapy. An INR of 2.0-3.0 is suggested for deep vein thrombosis/pulmonary embolism. Specimen Blood Performing Organization Address City/[facility] Phone Number [facility] DEPARTMENT OF PATHOLOGY AND [address] [place], [place] [phone] [facility] CBC hemogram (09/03/2017 6:19 PM CDT) WBC 5.58 4.50 - 11.00 k/uL [facility] DEPARTMENT OF PATHOLOGY AND GENOMIC MEDICINE RBC 4.49 4.40 - 6.00 m/uL [facility] DEPARTMENT OF PATHOLOGY AND GENOMIC MEDICINE HGB 13.7 (L) 14.0 - 18.0 g/dL [facility] DEPARTMENT OF PATHOLOGY AND GENOMIC MEDICINE HCT 40.6 (L) 41.0 - 51.0 % [facility] DEPARTMENT OF PATHOLOGY AND GENOMIC MEDICINE MCV 90.4 82.0 - 100.0 fL [facility] DEPARTMENT OF PATHOLOGY AND GENOMIC MEDICINE MCH 30.5 27.0 - 34.0 pg [facility] DEPARTMENT OF PATHOLOGY AND GENOMIC MEDICINE MCHC 33.7 31.0 - 37.0 g/dL [facility] DEPARTMENT OF PATHOLOGY AND GENOMIC MEDICINE RDW - SD 44.5 37.0 - 55.0 fL [facility] DEPARTMENT OF PATHOLOGY AND GENOMIC MEDICINE MPV 11.0 8.8 - 13.2 fL [facility] DEPARTMENT OF PATHOLOGY AND GENOMIC MEDICINE Platelet count 129 (L) 150 - 400 k/uL [facility] DEPARTMENT OF PATHOLOGY AND GENOMIC MEDICINE Nucleated RBC 0.00 /100 WBC [facility] DEPARTMENT OF PATHOLOGY AND GENOMIC MEDICINE Specimen Blood Performing Organization Address City/[facility] Phone Number [facility] DEPARTMENT OF PATHOLOGY AND [address] [place] [phone] [email or web address] [facility] Hemoglobin A1c (09/03/2017 6:19 PM CDT) Hemoglobin A1C 7.4 (H) 4.0 - 5.6 % [facility] DEPARTMENT OF PATHOLOGY Comment: AND GENOMIC MEDICINE HbA1c cutoffs for diagnosing diabetes: 4.0% - 5.6%=normal 5.7% - 6.4%=increased risk for diabetes (prediabetes) >=6.5%=diabetes Goals for glycemic control (ADA 2016) < 7.0%Target for non adults with diabetes. More or less stringent targets may be appropriate for individual patients. <7.5% Target for Children and adolescents with type 1 diabetes. Specimen Blood Performing Organization Address City/[facility] Phone Number [facility] DEPARTMENT OF PATHOLOGY AND [address] [place] [phone] [facility] Basic metabolic panel (09/03/2017 6:19 PM CDT) Sodium 137 135 - 148 mEq/L [facility] DEPARTMENT OF PATHOLOGY AND GENOMIC MEDICINE Potassium 5.3 (H) 3.5 - 5.0 mEq/L [facility] DEPARTMENT OF PATHOLOGY AND GENOMIC MEDICINE Chloride 97 (L) 98 - 112 mEq/L [facility] DEPARTMENT OF PATHOLOGY AND GENOMIC MEDICINE CO2 26 24 - 31 mEq/L [facility] DEPARTMENT OF PATHOLOGY AND GENOMIC MEDICINE Anion gap 14@ANIO 7 - 15 mEq/L [facility] DEPARTMENT OF PATHOLOGY AND GENOMIC MEDICINE BUN 26 (H) 8 - 23 mg/dL [facility] DEPARTMENT OF PATHOLOGY AND GENOMIC MEDICINE Creatinine 1.5 (H) 0.7 - 1.2 mg/dL [facility] DEPARTMENT OF PATHOLOGY AND GENOMIC MEDICINE Glucose 194 (H) 65 - 99 mg/dL [facility] DEPARTMENT OF PATHOLOGY AND GENOMIC MEDICINE Calcium 9.7 8.8 - 10.2 mg/dL [facility] DEPARTMENT OF PATHOLOGY AND GENOMIC MEDICINE Specimen Plasma specimen Performing Organization Address [facility] Phone Number [facility] DEPARTMENT OF PATHOLOGY AND [address] [place] [phone] [email or web address] [facility] after 04/24/2017 Insurance Payer Benefit Plan / Group Subscriber ID Type Phone Address MEDICARE MEDICARE PART A AND B xxxxxxxxxx Medicare [place], [place] A[employer]NA [employer] INDEMNITY xxxxxxxxx Indemnity Advance Directives Patient has advance care planning documents on file. For more information, please contact:Roby [id number] [place] [address]
[2018-04-25 10:35] LABS: Absolute Lymphocytes (CBC) 0.8 K/uL (0.7-4.9); Absolute Monocytes 0.5 K/uL (0.1-1.3); Absolute Neutrophil 14.8 K/uL (1.8-8.0); Basophils % 0.3 % (0-1.3); Eosinophils % 2.9 % (0-4.4); Hematocrit 43.7 % (39.6-49.0); Lymphocytes % 4.6 % (15.3-44.8); MPV 8.3 fL (7.6-11.3); Monocytes % 3.2 % (3.3-12.3); RBC Red Blood Cell Count 4.97 M/uL (4.33-5.43)
[2018-04-25 11:13] LABS: Albumin 3.4 g/dL (3.4-5.0); Bilirubin Direct 0.9 mg/dL (0-0.2); Bilirubin Total 1.4 mg/dL (0.2-1.0); Potassium 4.1 mmol/L (3.5-5.1); Protein, Total 6.9 g/dL (6.4-8.2)
[2018-04-25] MEDS ORDERED: NA CHLORIDE 0.9% 500 ML ONE (11:19)
[2018-04-25] MEDS ORDERED: ONDANSETRON 4 MG/2 ML VIAL ONE (11:19)
[2018-04-25] MEDS ORDERED: PROMETHAZINE 25 MG/ML VIAL ONE ×2 (11:33→12:35)
--- NOTE | 2018-04-25 12:51 | RAD REPORT ---
EXAM DESCRIPTION: CT - Abdomen Pelvis W Contrast - 04/25/2018 12:34 pm CLINICAL HISTORY: Abdominal pain. COMPARISON: August 2017 TECHNIQUE: Computed axial tomography of the abdomen and pelvis was obtained. 100 cc Isovue-300 is ad ministered intravenously. Oral contrast was given. All CT scans are performed using dose optimization technique as appropriate and may include automated exposure control or mA/KV adjustment according to patient size. FINDINGS: A small to moderate hiatal hernia contains contrast probably indicating gastroesophageal reflux. A small right pleural effusion is present. Gynecomastia is present. The gallbladder has been removed. Chronic pneumobilia is seen. Liver otherwise appears unremarkable. Pancreas and adrenals appear normal. Renal cortical thinning may be secondary to prior inflammation. Small renal cysts are present. A 4 mi llimeter nonobstructing left renal calculus is noted. Small bilateral inguinal hernias contain fat A ventral hernia within the mid and lower abdomen containing colon. The neck measures 5 centimeter in transverse length. It is larger in cranial caudal length. It appears that portion of the right colon has been resected. The wall of the proximal right colon is markedly thickened. There is no evidence diverticulitis. Prominent atherosclerosis is noted. IMPRESSION: The wall of the ascending colon is markedly thickened probably indicating a colitis
[2018-04-25] MEDS ORDERED: METRONIDAZOLE 500mg IVPB 500 MG/100 ML BAG IV ONE (13:38)
[2018-04-25] MEDS ORDERED: CIPROFLOXACIN 400mg IV 400 MG/200 ML BAG IV ONE (13:38)
[2018-04-25] MEDS ORDERED: IBUPROFEN 400 MG TAB ONE (13:53)
[2018-04-25] MEDS ORDERED: IBUPROFEN 200 MG TAB PO ONE (13:54)
--- NOTE | 2018-04-25 14:06 | ER ---
Nurse's Notes [facility] Name: Valente Armas Age: 87 yrs Sex: Male : 1930 Arrival Date: 04/25/2018 Time: 09:51 Bed 20 Private MD: Hermelindo Serra V Diagnosis: Colitis;Abnormal results of liver function studies;Nausea and vomiting-Intractable Presentation: 04/25 09:56 Presenting complaint: Patient states: Abdominal pain since 0730 this morning. Reports aj1 that this is the 3rd episode of this kind of pain that he has had in the past 3 months. Reports RUQ, LUQ and epigastric pain. Reports nausea. Denies V/D. Reports a history of bowel obstruction, and the pain is similar to when he has had a bowel obstruction in the past. Transition of care: patient was not received from another setting of care. Onset of symptoms was April 25, 2018 at 07:30. Risk Assessment: Do you want to hurt yourself or someone else? Patient reports no desire to harm self or others. Initial Sepsis Screen: Does the patient meet any 2 criteria? No. Patient's initial sepsis screen is negative. Does the patient have a suspected source of infection? Yes: Acute abdominal pain. Care prior to arrival: None. 09:56 Method Of Arrival: Wheelchair aj1 09:56 Acuity: BEBETO 3 aj1 Triage Assessment: 10:01 General: Appears in no apparent distress. comfortable, Behavior is calm, cooperative, aj1 appropriate for age. Pain: Complains of pain in epigastric area, right upper quadrant and left upper quadrant Pain currently is 4 out of 10 on a pain scale. Neuro: Level of Consciousness is awake, alert, obeys commands. Cardiovascular: Patient's skin is warm and dry. Respiratory: Airway is patent Respiratory effort is even, unlabored, Respiratory pattern is regular, symmetrical. GI: Reports upper abdominal pain, nausea, Patient currently denies diarrhea, vomiting. Historical: - Allergies: 10: No Known Allergies; aj1 - Home Meds: 10:01 amiodarone 100 mg Oral tab 1 tab once daily [Active]; Benadryl 25 mg Oral cap [Active]; aj1 Co Q-10 Oral [Active]; Eliquis 2.5 mg Oral tab 1 tab [Active]; folic acid 1 mg Oral tab [Active]; furosemide 40 mg Oral tab 1 tab [Active]; Klor-Con 10 10 mEq Oral TbER [Active]; Lantus 100 unit/mL Sub-Q soln [Active]; metoprolol tartrate 25 mg Oral tab [Active]; Nexium 40 mg Oral cpDR 1 cap once daily [Active]; Novolog 100 unit/mL Sub-Q soln [Active]; simvastatin 40 mg Oral tab 1 tab once daily [Active]; valsartan 320 mg Oral tab 1 tab once daily [Active]; viteyes twice a day [Active]; Zetia 10 mg Oral tab 1 tab once daily [Active]; - PMHx: 10:01 Atrial Fib; Diabetes - IDDM; GERD; Hyperlipidemia; Hypertension; macular degeneration; aj1 bowel obstruction; - Immunization history:: Flu vaccine is up to date. - Social history:: Smoking status: Patient/guardian denies using tobacco. - Ebola Screening: : Patient denies travel to an Ebola-affected area in the 21 days before illness onset. Screenin:25 Abuse screen: Denies threats or abuse. Nutritional screening: No deficits noted. em Tuberculosis screening: No symptoms or risk factors identified. Fall Risk None identified. Assessment: 10:25 General: Appears in no apparent distress. comfortable, Behavior is calm, cooperative, em Denies fever. Pain: Complains of pain in epigastric area, right upper quadrant and left upper quadrant Pain currently is 4 out of 10 on a pain scale. Pain began 3 hours ago. Neuro: Level of Consciousness is awake, alert, obeys commands, Oriented to person, place, time, situation. Cardiovascular: Capillary refill < 3 seconds Patient's skin is warm and dry. Respiratory: Airway is patent Respiratory effort is even, unlabored, Respiratory pattern is regular, symmetrical. GI: Abdomen is flat, Bowel sounds present X 4 quads. Abd is soft X 4 quads Abdomen is tender to palpation X 4 quads. Reports last BM was today, was normal Patient currently denies bloody stool, constipation, nausea, vomiting. : No signs and/or symptoms were reported regarding the genitourinary system. Derm: Skin is intact, is thin, Skin is pink, warm \T\ dry. Musculoskeletal: Range of motion: intact in all extremities. 10:35 Reassessment: I agree with previous assessment. hb 10:45 Reassessment: finished drinking PO contrast, CT notified. em 11:17 Reassessment: family reports pt is shivering and c/o nausea after drinking PO contrast, em denies pain, patient clammy, provider notified, new medications ordered, warm blankets given. 11:23 Reassessment: pt vomited once after drinking PO contrast, provider notified, new em medication orders received. 11:54 Reassessment: shaking has stopped, pt reports feeling better Patient states feeling em better. Patient states symptoms have improved. 12:08 Reassessment: pt vomited once, changed gown cleaned patient, provider notified, new em medication orders received, pending CT. 13:10 Reassessment: Patient appears in no apparent distress at this time. provider at bedside em discussing POC. 14:00 Reassessment: Patient appears in no apparent distress at this time. rates pain 2/10, em A\T\Ox3, skin pink warm and dry, respirations even and unlabored Patient states feeling better. Patient states symptoms have improved. 14:54 Reassessment: Patient appears in no apparent distress at this time. Patient and/or em family updated on plan of care and expected duration. Pain level reassessed. Patient is alert, oriented x 3, equal unlabored respirations, skin warm/dry/pink. pending room assignment, family at bedside, resting comfortably, rates pain 2/10 Patient states feeling better. Vital Signs: 10:01 BP 132 / 57; Pulse 68; Resp 18; Temp 96.8(TE); Pulse Ox 100% on R/A; Weight 68.04 kg aj1 (R); Height 5 ft. 9 in. (175.26 cm) (R); Pain 4/10; 11:13 Pulse 108; Resp 22; Temp 98.9(O); Pulse Ox 96% on R/A; Pain 0/10; em 12:14 BP 109 / 47; Pulse 91; Resp 21; Pulse Ox 92% on R/A; em 13:28 BP 109 / 42; Pulse 96; Resp 22; Temp 100.1; Pulse Ox 98% on 2 lpm NC; Pain 0/10; em 14:00 BP 120 / 57; Pulse 98; Resp 24; Pulse Ox 97% on 2 lpm NC; em 14:52 BP 103 / 55; Pulse 91; Resp 24; Pulse Ox 100% on 2 lpm NC; Pain 2/10; em 15:36 Temp 99.7(O); em 10:01 Body Mass Index 22.15 (68.04 kg, 175.26 cm) aj1 ED Course: 09:51 Patient arrived in ED. as 09:51 Hermelindo Serra MD is Private Physician. as 09:59 Triage completed. aj1 10:01 Arm band placed on Patient placed in an exam room. aj1 10:04 Yasmine Grider FNP-C is PHCP. kb 10:04 Junito Calvo MD is Attending Physician. kb 10:04 Pérez Calvin PA is PHCP. jmm 10:08 Jose Gonzales LVN is Primary Nurse. em 10:25 Patient has correct armband on for positive identification. Placed in gown. Bed in low em position. Call light in reach. Side rails up X2. Adult w/ patient. Pulse ox on. NIBP on. Warm blanket given. Pillow given. 10:27 Initial lab(s) drawn, by me, sent to lab. Inserted saline lock: 20 gauge in right em antecubital area, using aseptic technique. Blood collected. 12:35 CT Abd/Pelvis - W/Contrast In Process Unspecified. EDMS 14:05 Hermelindo Serra MD is Hospitalizing Provider. kb 15:35 No provider procedures requiring assistance completed. Patient admitted, IV remains in em place. Administered Medications: 11:15 Drug: Zofran 4 mg Route: IVP; Site: right antecubital; hb 12:23 Follow up: Response: No adverse reaction; Nausea unchanged em 11:15 Drug: NS 0.9% 500 ml Route: IV; Rate: bolus; Site: right antecubital; em 11:50 Follow up: IV Status: Completed infusion; IV Intake: 500ml em 11:28 Drug: Phenergan 12.5 mg Route: IVP; Site: right antecubital; hb 12:10 Follow up: Response: No adverse reaction; Nausea unchanged em 13:31 Drug: Phenergan 12.5 mg Route: IVP; Site: right antecubital; em 14:07 Follow up: Response: No adverse reaction; Nausea is decreased em 13:38 Drug: Flagyl 500 mg Volume: 100 ml; Route: IVPB; Rate: 200 ml/hr; Infused Over: 30 em mins; Site: right antecubital; 14:51 Follow up: Response: No adverse reaction; IV Status: Completed infusion; IV Intake: em 100ml 13:51 Drug: Ibuprofen 600 mg Route: PO; em 15:34 Follow up: Response: No adverse reaction; Temperature is decreased em 14:51 Drug: Cipro 400 mg Volume: 200 ml; Route: IVPB; Infused Over: 60 mins; Site: right em antecubital; 15:33 Follow up: Response: No adverse reaction; IV Status: Completed infusion; IV Intake: 50mlem Intake: 11:50 IV: 500ml; Total: 500ml. em 14:51 IV: 100ml; Total: 600ml. em 15:33 IV: 50ml; Total: 650ml. em Outcome: 14:06 Decision to Hospitalize by Provider. kb 15:35 Admitted to Tele accompanied by tech, family with patient, via stretcher, room 416, em with chart, Report called to ALEAH Little 15:35 Condition: good 15:35 Instructed on the need for admit, Demonstrated understanding of instructions. 15:37 Patient left the ED. em Signatures: Dispatcher [employer] EDMS Yasmine Grider, PUBLIC SPACE ATTENDANT-C PUBLIC SPACE ATTENDANT-Yusra Cristobal, RN RN aj1 Pérez Calvin PA PA jmm Jose Gonzales, ABATTOIR MANAGER ABATTOIR MANAGER em Mya Velazquez Heather, RN RN Corrections: (The following items were deleted from the chart) 12:02 11:17 Reassessment: family reports pt is shivering and c/o nausea, denies pain, patient em clammy, provider notified, new medications ordered, warm blankets given em 12:03 11:23 Reassessment: pt vomited once after drinking PO contrast, provider notified, new em medication orders received em
--- NOTE | 2018-04-25 14:07 | EDPHYS ---
Physician Documentation [facility] Name: Valente Armas Age: 87 yrs Sex: Male : 1930 Arrival Date: 04/25/2018 Time: 09:51 Bed 20 Private MD: Hermelindo Serra V ED Physician Junito Calvo HPI: 04/25 12:29 This 87 yrs old Male presents to ER via Wheelchair with complaints of kb Abdominal Pain. 12:29 The patient presents with abdominal pain in the upper abdomen. Onset: The kb symptoms/episode began/occurred this morning. The symptoms do not radiate. Associated signs and symptoms: Pertinent positives: nausea. The symptoms are described as constant. Modifying factors: The symptoms are alleviated by nothing, the symptoms are aggravated by nothing. Severity of pain: At its worst the pain was moderate in the emergency department the pain has improved moderately. The patient has experienced similar episodes in the past, several times. The patient has not recently seen a physician. Historical: - Allergies: 10:01 No Known Allergies; aj1 - Home Meds: 10:01 amiodarone 100 mg Oral tab 1 tab once daily [Active]; Benadryl 25 mg Oral cap [Active]; aj1 Co Q-10 Oral [Active]; Eliquis 2.5 mg Oral tab 1 tab [Active]; folic acid 1 mg Oral tab [Active]; furosemide 40 mg Oral tab 1 tab [Active]; Klor-Con 10 10 mEq Oral TbER [Active]; Lantus 100 unit/mL Sub-Q soln [Active]; metoprolol tartrate 25 mg Oral tab [Active]; Nexium 40 mg Oral cpDR 1 cap once daily [Active]; Novolog 100 unit/mL Sub-Q soln [Active]; simvastatin 40 mg Oral tab 1 tab once daily [Active]; valsartan 320 mg Oral tab 1 tab once daily [Active]; viteyes twice a day [Active]; Zetia 10 mg Oral tab 1 tab once daily [Active]; - PMHx: 10:01 Atrial Fib; Diabetes - IDDM; GERD; Hyperlipidemia; Hypertension; macular degeneration; aj1 bowel obstruction; - Immunization history:: Flu vaccine is up to date. - Social history:: Smoking status: Patient/guardian denies using tobacco. - Ebola Screening: : Patient denies travel to an Ebola-affected area in the 21 days before illness onset. ROS: 12:28 Constitutional: Negative for fever, chills, and weight loss, ENT: Negative for injury, kb pain, and discharge, Neck: Negative for injury, pain, and swelling, Cardiovascular: Negative for chest pain, palpitations, and edema, Respiratory: Negative for shortness of breath, cough, wheezing, and pleuritic chest pain, Back: Negative for injury and pain, : Negative for injury, bleeding, discharge, and swelling, MS/Extremity: Negative for injury and deformity, Skin: Negative for injury, rash, and discoloration, Neuro: Negative for headache, weakness, numbness, tingling, and seizure. 12:28 Abdomen/GI: Positive for abdominal pain, nausea, Negative for vomiting, diarrhea, constipation, abdominal cramps, abdominal distension, anorexia. Exam: 12:29 Constitutional: This is a well developed, well nourished patient who is awake, alert, kb and in no acute distress. Head/Face: Normocephalic, atraumatic. Chest/axilla: Normal chest wall appearance and motion. Nontender with no deformity. No lesions are appreciated. Cardiovascular: Regular rate and rhythm with a normal S1 and S2. No gallops, murmurs, or rubs. Normal PMI, no JVD. No pulse deficits. Respiratory: Lungs have equal breath sounds bilaterally, clear to auscultation and percussion. No rales, rhonchi or wheezes noted. No increased work of breathing, no retractions or nasal flaring. Skin: Warm, dry with normal turgor. Normal color with no rashes, no lesions, and no evidence of cellulitis. MS/ Extremity: Pulses equal, no cyanosis. Neurovascular intact. Full, normal range of motion. Neuro: Awake and alert, GCS 15, oriented to person, place, time, and situation. Cranial nerves II-XII grossly intact. Motor strength 5/5 in all extremities. Sensory grossly intact. Cerebellar exam normal. Normal gait. 12:29 Abdomen/GI: Inspection: scar(s), are noted in the abdomen diffusely, Bowel sounds: normal, in all quadrants, Palpation: soft, in all quadrants, mild abdominal tenderness, in the right upper quadrant, right lower quadrant and left lower quadrant, moderate abdominal tenderness, in the left upper quadrant. Vital Signs: 10:01 BP 132 / 57; Pulse 68; Resp 18; Temp 96.8(TE); Pulse Ox 100% on R/A; Weight 68.04 kg aj1 (R); Height 5 ft. 9 in. (175.26 cm) (R); Pain 4/10; 11:13 Pulse 108; Resp 22; Temp 98.9(O); Pulse Ox 96% on R/A; Pain 0/10; em 12:14 BP 109 / 47; Pulse 91; Resp 21; Pulse Ox 92% on R/A; em 13:28 BP 109 / 42; Pulse 96; Resp 22; Temp 100.1; Pulse Ox 98% on 2 lpm NC; Pain 0/10; em 14:00 BP 120 / 57; Pulse 98; Resp 24; Pulse Ox 97% on 2 lpm NC; em 14:52 BP 103 / 55; Pulse 91; Resp 24; Pulse Ox 100% on 2 lpm NC; Pain 2/10; em 15:36 Temp 99.7(O); em 10:01 Body Mass Index 22.15 (68.04 kg, 175.26 cm) aj1 MDM: 10:04 Patient medically screened. kb 12:28 Data reviewed: vital signs, nurses notes. Data interpreted: Pulse oximetry: on room air kb is 99 %. Interpretation: normal. 14:05 Counseling: I had a detailed discussion with the patient and/or guardian regarding: the kb historical points, exam findings, and any diagnostic results supporting the discharge/admit diagnosis, lab results, radiology results, the need for further work-up and treatment in the hospital. 14:05 ED course: Called Dr. Serra twice, no wer, is not signed out to anyone, left voicenyil rn regarding admission. Patient with colitis, dehydration, 16k WBC, and low grade fever. Family prefers admission as well due to pain and weakness. No signs of obstruction on ct scan.. 04/25 10:12 Order name: Basic Metabolic Panel; Complete Time: 11:15 kb 04/25 10:12 Order name: CBC with Diff; Complete Time: 10:45 kb 04/25 10:12 Order name: Hepatic Function; Complete Time: 11:15 kb 04/25 10:12 Order name: Lipase; Complete Time: 11:15 kb 04/25 10:12 Order name: CT Abd/Pelvis - W/Contrast; Complete Time: 12:54 kb 04/25 10:12 Order name: IV Saline Lock; Complete Time: 10:30 kb 04/25 10:12 Order name: Labs collected and sent; Complete Time: 10:30 kb Administered Medications: 11:15 Drug: Zofran 4 mg Route: IVP; Site: right antecubital; hb 12:23 Follow up: Response: No adverse reaction; Nausea unchanged em 11:15 Drug: NS 0.9% 500 ml Route: IV; Rate: bolus; Site: right antecubital; em 11:50 Follow up: IV Status: Completed infusion; IV Intake: 500ml em 11:28 Drug: Phenergan 12.5 mg Route: IVP; Site: right antecubital; hb 12:10 Follow up: Response: No adverse reaction; Nausea unchanged em 13:31 Drug: Phenergan 12.5 mg Route: IVP; Site: right antecubital; em 14:07 Follow up: Response: No adverse reaction; Nausea is decreased em 13:38 Drug: Flagyl 500 mg Volume: 100 ml; Route: IVPB; Rate: 200 ml/hr; Infused Over: 30 em mins; Site: right antecubital; 14:51 Follow up: Response: No adverse reaction; IV Status: Completed infusion; IV Intake: em 100ml 13:51 Drug: Ibuprofen 600 mg Route: PO; em 15:34 Follow up: Response: No adverse reaction; Temperature is decreased em 14:51 Drug: Cipro 400 mg Volume: 200 ml; Route: IVPB; Infused Over: 60 mins; Site: right em antecubital; 15:33 Follow up: Response: No adverse reaction; IV Status: Completed infusion; IV Intake: 50mlem Disposition: 17:40 Co-signature as Attending Physician, Junito Calvo MD. rn Disposition: 04/25/18 14:06 Hospitalization ordered by Hermelindo Serra for Inpatient Admission. Preliminary diagnosis are Colitis, Abnormal results of liver function studies, Nausea and vomiting - Intractable. - Bed requested for Telemetry/MedSurg (Inpatient). - Status is Inpatient Admission. em - Condition is Stable. - Problem is new. - Symptoms are unchanged. UTI on Admission? No Signatures: Dispatcher [employer] EDYasmine Eden FNP-C LOSS PREVENTION MANAGER-Ckb Yusra Avila, RN RN aj1 Jose Gonzales, PAVING BED MAKER PAVING BED MAKER Shellie Best ms Junito Calvo MD MD rn Baxter, Heather, RN RN Corrections: (The following items were deleted from the chart) 14:11 14:06 Hospitalization Ordered by Hermelindo Serra MD for Inpatient Admission. Preliminary kb diagnosis is Colitis; Abnormal results of liver function studies. Bed requested for Telemetry/MedSurg (Inpatient). Status is Inpatient Admission. Condition is Stable. Problem is new. Symptoms are unchanged. UTI on Admission? No. kb 14:58 14:11 04/25/2018 14:06 Hospitalization Ordered by Hermelindo Serra MD for Inpatient ms Admission. Preliminary diagnosis is Colitis; Abnormal results of liver function studies; Nausea and vomiting - Intractable. Bed requested for Telemetry/MedSurg (Inpatient). Status is Inpatient Admission. Condition is Stable. Problem is new. Symptoms are unchanged. UTI on Admission? No. kb 15:37 14:58 04/25/2018 14:06 Hospitalization Ordered by Hermelindo Serra MD for Inpatient em Admission. Preliminary diagnosis is Colitis; Abnormal results of liver function studies; Nausea and vomiting - Intractable. Bed requested for Telemetry/MedSurg (Inpatient). Status is Inpatient Admission. Condition is Stable. Problem is new. Symptoms are unchanged. UTI on Admission? No. ms
[2018-04-25] MEDS ORDERED: MORPHINE 4 MG/ML SYR IV PRN (16:23)
[2018-04-25] MEDS ORDERED: ACETAMINOPHEN 500 MG TAB PO PRN (16:23)
[2018-04-25] MEDS ORDERED: ONDANSETRON 4 MG/2 ML VIAL IV PRN (16:23)
[2018-04-25 16:54] VITALS: BMI 22.4
[2018-04-25] MEDS ORDERED: NA CHLORIDE 0.9% 1,000 ML IV SCH ×2 (17:00→21:01)
[2018-04-25] MEDS: METRONIDAZOLE 500mg IVPB 500 MG/100 ML BAG IV SCH (17:13)
[2018-04-25] MEDS ORDERED: GLUCAGON 1 MG/VIAL IM PRN (20:00)
[2018-04-25] MEDS ORDERED: D50W 25 GM/50 ML SYRINGE IV PRN (20:00)
[2018-04-25 20:11] LABS: Urine Appearance CLEAR; Urine Blood NEGATIVE (NEG); Urine Color DK YELLOW; Urine Glucose NEGATIVE (NEG); Urine Protein 1+ (NEG); Urine Specific Gravity >=1.030 (1.005-1.030)
[2018-04-25 20:17] LABS: Urine Microscopic Reflex ORDER UMIC
[2018-04-25] MEDS: CIPROFLOXACIN 400mg IV 400 MG/200 ML BAG IV SCH (20:30)
[2018-04-25 20:56] LABS: Urine Bacteria <20 /HPF (NONE SEEN); Urine Culture Reflex Order NOT NEEDED
[2018-04-25 21:15] LABS: Urine Bilirubin 1+ (NEG)
[2018-04-25] MEDS: METOPROLOL TAR 25 MG TAB PO SCH (21:59)
[2018-04-25] MEDS: DIPHENHYDRAMINE 25 MG TAB/CAP PO SCH (21:59)
[2018-04-25] MEDS: INSULIN -REGULAR HUMAN 50 UNIT/0.5 ML ML SQ SCH (22:02)
[2018-04-26] MEDS: METRONIDAZOLE 500mg IVPB 500 MG/100 ML BAG IV SCH ×3 (00:28→17:51)
[2018-04-26 05:32] LABS: Absolute Lymphocytes (CBC) 0.7 K/uL (0.7-4.9); Absolute Monocytes 0.9 K/uL (0.1-1.3); Absolute Neutrophil 14.2 K/uL (1.8-8.0); Basophils % 0.2 % (0-1.3); Eosinophils % 1.6 % (0-4.4); Hematocrit 40.2 % (39.6-49.0); Lymphocytes % 4.2 % (15.3-44.8); Monocytes % 5.7 % (3.3-12.3); RBC Red Blood Cell Count 4.49 M/uL (4.33-5.43)
[2018-04-26] MEDS: PANTOPRAZOLE 40MG TABLET PO SCH (05:38)
[2018-04-26 05:43] LABS: Albumin 2.8 g/dL (3.4-5.0); Bilirubin Direct 2.3 mg/dL (0-0.2); Bilirubin Total 3.2 mg/dL (0.2-1.0); Potassium 5.4 mmol/L (3.5-5.1); Protein, Total 6.2 g/dL (6.4-8.2)
[2018-04-26] MEDS: INSULIN -REGULAR HUMAN 50 UNIT/0.5 ML ML SQ SCH ×4 (07:30→21:00)
[2018-04-26 08:41] LABS: Platelet Estimate ADEQ
[2018-04-26 08:42] LABS: Blood Morphology Comment NOT SEEN (NOT SEEN)
[2018-04-26] MEDS ORDERED: VALSARTAN 80 MG TAB PO SCH (09:00)
[2018-04-26] MEDS ORDERED: VALSARTAN 160 MG TAB PO SCH (09:00)
[2018-04-26] MEDS: CIPROFLOXACIN 400mg IV 400 MG/200 ML BAG IV SCH (09:37)
[2018-04-26] MEDS: EZETIMIBE 10 MG TAB PO SCH (09:39)
[2018-04-26] MEDS: AMIODARONE HCL 200 MG TAB PO SCH (09:40)
[2018-04-26] MEDS: APIXABAN 2.5 MG TABLET PO SCH (09:41)
[2018-04-26] MEDS: METOPROLOL TAR 25 MG TAB PO SCH ×2 (09:41→21:42)
[2018-04-26] MEDS: FOLIC ACID 1 MG TABLET PO SCH (09:41)
[2018-04-26] MEDS: NA CHLORIDE 0.9% 1,000 ML IV SCH ×2 (10:36→21:42)
--- NOTE | 2018-04-26 12:21 | P.HP ---
Certification for Inpatient Patient admitted to: Inpatient With expected LOS: >2 Midnights Practitioner: I am a practitioner with admitting privileges, knowledge of patient current condition, hospital course, and medical plan of care. Services: Services provided to patient in accordance with Admission requirements found in Title 42 Section 412.3 of the Code of Federal Regulations Patient History Date of Service: 04/26/18 Reason for admission: ABDOMEN PAIN History of Present Illness: MR. KEN HAS A. FIB, DM. CAD, HISTORY OF RECENT CHOLEDOCHOLITHIAISIS, SP REMOVAL OF STONES AND CHOLECYSTECTOMY. HE COMES WITH EPIG PAIN AGAIN AND FEELS WEAK. HE HAD CT SCAN IN ER AND SHOWN DIVERTICULITIS. HE IS ADMITTED FOR IT. Allergies soy Allergy (Verified 04/26/18 00:32) Nausea/Vomiting Home Medications: Amiodarone HCl 100 mg PO DAILY 04/25/18 Apixaban [Eliquis *] 2.5 mg PO DAILY 04/25/18 Diphenhydramine HCl [Benadryl Allergy] 25 mg PO BEDTIME 04/25/18 Esomeprazole Mag Trihydrate [Nexium] 40 mg PO DAILY 04/25/18 Ezetimibe [Zetia] 10 mg PO DAILY 04/25/18 Folic Acid 1 mg PO DAILY 04/25/18 Furosemide 40 mg PO M,W,F 04/25/18 Insulin Aspart [Novolog] See Protocol SQ QID 04/25/18 Insulin Glargine,Hum.rec.anlog [Lantus] 32 unit SQ BREAKFAST 04/25/18 Metoprolol Tartrate 25 mg PO BID 04/25/18 Simvastatin 40 mg PO DAILY 04/25/18 Ubidecarenone [Co Q-10] 200 mg PO BID 04/25/18 Valsartan 320 mg PO DAILY 04/25/18 - Past Medical/Surgical History Has patient received pneumonia vaccine in the past: Yes Diabetic: Yes -: flu -: iddm -: gerd -: dysrhythmia -: VA -: a fib -: hypertension -: hyperlipidemia -: macular degeneration -: CABG -: intestinal surgery -: ERCP -: CATARAT -: prostate sx - Family History parents -: Heart disease - Social History Smoking Status: Former smoker Alcohol use: No CD- Drugs: No Caffeine use: Yes Place of Residence: Home Review of Systems 10-point ROS is otherwise unremarkable General: Weakness, Malaise Gastrointestinal: Abdominal Pain, No Distention Physical Examination - Vital Signs Temperature: 97.8 F Blood Pressure: 95/53 Pulse: 60 Respirations: 16 Pulse Ox (%): 95 - Physical Exam General: Alert, Mild distress HEENT: Atraumatic, PERRLA, Mucous membr. moist/pink, EOMI, Sclerae nonicteric Neck: Supple, 2+ carotid pulse no bruit, No LAD, Without JVD or thyroid abnormality Respiratory: Clear to auscultation bilaterally, Normal air movement Cardiovascular: Regular rate/rhythm, Normal S1 S2 Gastrointestinal: Normal bowel sounds, Masses (MULTIPLE ABDOMEN WALL HERNIAS, LARGE AND NOT OPERABLE HIS MEDICAL CONDTION IS POOR.) Musculoskeletal: No tenderness Integumentary: No rashes Neurological: Normal gait, Normal speech, Normal strength at 5/5 x4 extr, Normal tone, Normal affect Lymphatics: No axilla or inguinal lymphadenopathy Assessment and Plan - Problems (Diagnosis) (1) 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 I CALLED. DR. SYED, HIS ULAR DOCTOR WHO DOES NOT COME TO HOSPITAL HERE. HE MAY MOVE HIM TO [facility] IF NEED. IF HE IS BETTER CLINICALLY, HE WILL SEE HIM OP. (2) Cholangitis Current Visit: Yes Status: Acute Plan: IV ROCEPHIN AND FLAGYL. WITH AMIODARONE HE SHOULD NOT BE ON CIPRO. (3) Colitis Current Visit: Yes Status: Acute Plan: ABOVE FU WITH YAHAIRA. (4) Atrial fibrillation Current Visit: No Status: Chronic Plan: STABLE. 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 Qualifiers: Atrial fibrillation type: chronic Qualified Code(s): I48.2 - Chronic atrial fibrillation - Advance Directives Does patient have a Living Will: Yes Does patient have a Durable POA for Healthcare: Yes
[2018-04-26 14:25] VITALS: O2SAT 95
[2018-04-26] MEDS ORDERED: FUROSEMIDE 40 MG TABLET PO SCH (17:00)
[2018-04-26] MEDS ORDERED: ATORVASTATIN 20 MG TAB PO SCH (21:00)
[2018-04-26] MEDS: DIPHENHYDRAMINE 25 MG TAB/CAP PO SCH (21:42)
[2018-04-27] MEDS: METRONIDAZOLE 500mg IVPB 500 MG/100 ML BAG IV SCH ×2 (00:19→10:08)
[2018-04-27] MEDS: PANTOPRAZOLE 40MG TABLET PO SCH (05:21)
[2018-04-27] MEDS: INSULIN -REGULAR HUMAN 50 UNIT/0.5 ML ML SQ SCH ×2 (07:30→11:44)
[2018-04-27 08:50] LABS: Absolute Lymphocytes (CBC) 0.8 K/uL (0.7-4.9); Absolute Monocytes 0.6 K/uL (0.1-1.3); Absolute Neutrophil 8.1 K/uL (1.8-8.0); Basophils % 0.4 % (0-1.3); Eosinophils % 5.1 % (0-4.4); Hematocrit 38.1 % (39.6-49.0); Lymphocytes % 8.3 % (15.3-44.8); MPV 9.4 fL (7.6-11.3); Monocytes % 5.5 % (3.3-12.3); RBC Red Blood Cell Count 4.26 M/uL (4.33-5.43)
[2018-04-27] MEDS ORDERED: CEFTRIAXONE 1 GM/NS 50 ML 50 ML IV SCH (09:00)
[2018-04-27] MEDS ORDERED: CEFTRIAXONE/SWI 1gm 1 GM/10 ML SYR IV SCH (09:00)
[2018-04-27 09:07] LABS: Albumin 2.9 g/dL (3.4-5.0); Bilirubin Total 1.4 mg/dL (0.2-1.0); Potassium 4.9 mmol/L (3.5-5.1); Protein, Total 6.2 g/dL (6.4-8.2)
[2018-04-27] MEDS: METOPROLOL TAR 25 MG TAB PO SCH (10:07)
[2018-04-27] MEDS: AMIODARONE HCL 200 MG TAB PO SCH (10:08)
[2018-04-27] MEDS: FOLIC ACID 1 MG TABLET PO SCH (10:08)
[2018-04-27] MEDS: APIXABAN 2.5 MG TABLET PO SCH (10:08)
[2018-04-27] MEDS: EZETIMIBE 10 MG TAB PO SCH (10:08)
[2018-04-27] MEDS: NA CHLORIDE 0.9% 1,000 ML IV SCH (11:44)
[2018-04-27 12:59] VITALS: BP 137/65; TEMP 98.3
--- NOTE | 2018-04-27 13:10 | P.DS ---
Admission Date: 04/25/18 Discharge Date: 04/27/18 Disposition: TRANSFER TO [facility] Reason for Admission: ABDOMEN PAIN - Problems (1) Cholestasis Current Visit: Yes Status: Chronic (2) Cholangitis Current Visit: Yes Status: Acute (3) Colitis Current Visit: Yes Status: Acute (4) Atrial fibrillation Current Visit: No Status: Chronic Qualifiers: Atrial fibrillation type: chronic Qualified Code(s): I48.2 - Chronic atrial fibrillation Brief History of Present Illness: MR. KEN HAS A. FIB, DM. CAD, HISTORY OF RECENT CHOLEDOCHOLITHIAISIS, SP REMOVAL OF STONES AND CHOLECYSTECTOMY. HE COMES WITH EPIG PAIN AGAIN AND FEELS WEAK. HE HAD CT SCAN IN ER AND SHOWN DIVERTICULITIS. HE IS ADMITTED FOR IT. TO BE SENT TO [facility] FOR FURTHER THERAPY. Vital Signs/Physical Exam: Temp Pulse Resp BP Pulse Ox 98.3 F 62 16 137/65 96 04/27/18 12:00 04/27/18 12:00 04/27/18 12:00 04/27/18 12:00 04/27/18 12:00 Laboratory Data at Discharge: WBC 10.1 K/uL (4.3-10.9) D 04/27/18 08:17 Hgb 12.9 g/dL (13.6-17.9) L 04/27/18 08:17 Hct 38.1 % (39.6-49.0) L 04/27/18 08:17 Plt Count 143 K/uL (152-406) L 04/27/18 08:17 Sodium 139 mmol/L (136-145) 04/27/18 08:17 Potassium 4.9 mmol/L (3.5-5.1) 04/27/18 08:17 BUN 29 mg/dL (7-18) H 04/27/18 08:17 Creatinine 1.79 mg/dL (0.55-1.3) H 04/27/18 08:17 Glucose 143 mg/dL (74-106) H 04/27/18 08:17 Total Bilirubin 1.4 mg/dL (0.2-1.0) H 04/27/18 08:17 AST 202 U/L (15-37) H D 04/27/18 08:17 ALT 373 U/L (12-78) H* D 04/27/18 08:17 Alkaline Phosphatase 231 U/L (45-117) H 04/27/18 08:17 Lipase 42 U/L (73-393) L 04/26/18 04:37 Home Medications: Amiodarone HCl 100 mg PO DAILY 04/25/18 Apixaban [Eliquis *] 2.5 mg PO DAILY 04/25/18 Diphenhydramine HCl [Benadryl Allergy] 25 mg PO BEDTIME 04/25/18 Esomeprazole Mag Trihydrate [Nexium] 40 mg PO DAILY 04/25/18 Ezetimibe [Zetia] 10 mg PO DAILY 04/25/18 Folic Acid 1 mg PO DAILY 04/25/18 Furosemide 40 mg PO M,W,F 04/25/18 Insulin Aspart [Novolog] See Protocol SQ QID 04/25/18 Insulin Glargine,Hum.rec.anlog [Lantus] 32 unit SQ BREAKFAST 04/25/18 Metoprolol Tartrate 25 mg PO BID 04/25/18 Simvastatin 40 mg PO DAILY 04/25/18 Ubidecarenone [Co Q-10] 200 mg PO BID 04/25/18 Valsartan 320 mg PO DAILY 04/25/18
== END 2018-04-27 13:58 | disposition short-term general hospital (02) | DRG 445 ==
LOC: ER 09:48 → ERHOLD 14:12 → 4TH 15:36
PROVIDERS: ADMIT Internal Medicine; ATTEND Internal Medicine
DX: K83.1 Obstruction of bile duct (principal); K83.09 Other cholangitis; K57.92 Diverticulitis of intestine, part unspecified, without perforation or abscess without bleeding; E11.9 Type 2 diabetes mellitus without complications; Z79.4 Long term (current) use of insulin; K21.9 Gastro-esophageal reflux disease without esophagitis; I25.2 Old myocardial infarction; I10 Essential (primary) hypertension; E78.5 Hyperlipidemia, unspecified; I25.10 Atherosclerotic heart disease of native coronary artery without angina pectoris; Z95.1 Presence of aortocoronary bypass graft; Z87.891 Personal history of nicotine dependence; K52.9 Noninfective gastroenteritis and colitis, unspecified; I48.2 Chronic atrial fibrillation
CPT/HCPCS: 36415; 74177; 80048; 80053; 80076; 81003; 81015; 82962; 83690; 85025; 96361; 96365; 96367; 96375; 99285; J0696; J0744; J2405; J2550; J7030; Q9967

== ENCOUNTER 2019-09-04 09:30 | Emergency (ER) | payer OTHER ==
--- OUTSIDE RECORDS SUMMARY | 2019-09-04 09:32 | XMS REPORT | Clinical Summary ---
:1930 Author Organization [facility] Address [address] [place] [address] Care Team Providers Name Role Phone Hermelindo Serra MD Primary Care Provider Allergies No Known Allergies Medications Medication Sig Dispensed Refills Start Date End Date Status diphenhydrAMINE Take 25 mg by 0 Active (BENADRYL) 25 mg capsule mouth nightly. coenzyme Q10 (COQ-10) 100 Take 100 mg by 0 Active mg capsule mouth 2 (two) times a day. apixaban (ELIQUIS) 2.5 mg Take by mouth 2 0 Active tablet (two) times a day. folic acid (FOLVITE) 1 MG Take 1 mg by 0 Active tablet mouth daily. furosemide (LASIX) 40 mg Take 40 mg by 0 Active tablet mouth. MWF insulin GLARGINE (LANTUS) Inject 30 Units 0 Active 100 unit/mL injection under the skin (vial) every morning. therapeutic multivitamin Take 1 tablet 0 Active (THERAGRAN) tablet by mouth daily. insulin aspart (NOVOLOG Inject under 0 Active FLEXPEN U-100 INSULIN the skin 3 SUBQ) (three) times a day. vit C/vit Take by mouth. 0 Activ e E/lutein/min/omega-3 (OCUVITE ORAL) amIODarone (PACERONE) 100 Take 100 mg by 0 Active MG tablet mouth nightly. simvastatin (ZOCOR) 40 MG Take 40 mg by 0 Active tablet mouth every morning. esomeprazole (NexIUM) 20 Take by mouth 0 Active MG capsule every morning. metoprolol succinate XL Take 25 mg by 0 Active (TOPROL XL) 25 mg 24 hr mouth 2 (two) tablet times a day. valsartan (DIOVAN) 320 MG Take 320 mg by 0 Active tablet mouth nightly. Active Problems Problem Noted Date Symptomatic cholelithiasis 09/10/2017 Family History Medical History Relation Name Comments [...] travel history available. Last Filed Vital Signs Not on file Plan of Treatment Health Maintenance Due Date Last Done Comments DIABETIC RETINAL EYE EXAM 1930 DIABETIC FOOT EXAM 12/04/1941 SHINGLES VACCINES (#1) 12/04/1981 65+ PNEUMOCOCCAL VACCINE (2 of 2 - PPSV23) 12/04/199601/28 INFLUENZA VACCINE 10/29/2019 12/24/2012 Results Not on fileafter 09/03/2018 Insurance Payer Benefit Plan / Subscriber ID Effective Dates Phone Addre ss Type Group MEDICARE MEDICARE PART A AND xxxxxxxxxx 1996-[place] Medicare B t AETNA AETNA [employer] xxxxxxxxx 2000-Presen Indemnity INDEMNITY t Advance Directives For more information, please contact: [phone] Type Date Recorded Patient V [employer] Explanati on Advance Directives, Living Will and Medical Power of Metal Bumper Advance Directives, 09/15/2017 11:04 AM Living Will and Medical Power of Metal Bumper Advance Directives, 09/15/2017 11:04 AM Living Will and Medical Power of Metal Bumper
--- OUTSIDE RECORDS SUMMARY | 2019-09-04 09:32 | XMS REPORT | Clinical Summary ---
:1930 Author Organization [facility] Address [address] [place] [address] Care Team Providers Name Role Phone Zack Serra Primary Care Provider Allergies No Known Allergies Medications Medication Sig Dispensed Refills Start Date End Date Status niacin-lovastatin Take 1 tablet by 0 Active (ADVICOR) 500-20 mg mouth nightly. 24 hr tablet coenzyme Q10 100 mg Take 100 mg by mouth 0 Active capsule daily. furosemide (LASIX) Take 40 mg by mouth 0 Active 40 MG tablet 2 (two) times daily. potassium chloride Take 10 mEq by mouth 0 Active (KLOR-CON) 10 MEQ CR daily. tablet insulin glargine Inject 0 Act kristen (LANTUS) 100 unit/mL subcutaneously 2 injection (two) times daily. 15 units twice a day multivitamin capsule Take 1 capsule by 0 Active mouth daily. esomeprazole Take 20 mg by mouth 0 Active (NEXIUM) 20 MG daily. capsule insulin aspart Inject 0 Activ e (NOVOLOG) 100 subcutaneously 3 unit/mL InPn (three) times daily with meals. 6 units three times a day amiodarone Take 100 mg by mouth 0 Active (PACERONE) 100 MG daily. tablet metoprolol Take 25 mg by mouth 0 Active (TOPROL-XL) 25 MG 24 2 (two) times daily. hr tablet valsartan (DIOVAN) Take 320 mg by mouth 0 Active 320 MG tablet daily. apixaban (ELIQUIS) Take 2.5 mg by mouth 0 Active 2.5 mg Tab tablet 2 (two) times daily. ondansetron (ZOFRAN Take 1 tablet (4 mg 14 tablet 0 06/24/2014 Active ODT) 4 MG total) by mouth disintegrating every 8 (eight) tablet hours as needed for Nausea. Active Problems Not on file Social History Tobacco Use Types Packs/Day Years Used Date Never Smoker Alcohol Use Drinks/Week oz/Week Comments No Sex Assigned at Date Recorded Not on file Job Start Date Occupation Industry Not on file Not on file Not on file Travel History Travel Start Travel End No recent travel history available. Last Filed Vital Signs Not on file Plan of Treatment Not on file Results Not on fileafter 09/03/2018 Insurance Payer Benefit Plan / Group Subscriber ID Type Phone A ddress MEDICARE MEDICARE A B xxxxxxxxxx Medicare AETNA - MGD CARE AETNA INDEMNITY NON CONTR xxxxxxxxx Comm
--- OUTSIDE RECORDS SUMMARY | 2019-09-04 09:33 | XMS REPORT | Continuity of Care Document ---
:1930 Author Organization [facility] t Address [address] [place] [address] Care Team Providers Name Role Phone Zack Serra Primary Care Physician Rehan SINGER Attending Clinician Payers Payer Name Policy Type Policy Number Effective Date Expiration Date S ource Problems Condition Condition Condition Status Onset Resolution Last Treating Co mments Source Name Details Category Date Date Treatment Clinician Date Symptomati Symptomati Disease Active [place] [facility] c 6-14 [facility] cholelithi cholelithi 00:00: st asis asis 00 Allergies, Adverse Reactions, Alerts Allergy Allergy Status Severity Reaction(s) Onset Inactive Treating Comm ents Source Name Type Date Date Clinician No Known DA Active U [facility] Allergie 04-27 Clear s 00:00: Kapoor 00 [facility] Family History Family Member Diagnosis Comments Start Date Stop Date Source Natural brother Cancer [facility] rhonda Natural father Heart disease [facility] Natural mother Heart disease [facility] Social History Social Habit Start Date Stop Date Quantity Comments Source Sex Assigned At [facility] Alcohol intake 2017-09-24 2017-09-24 Current [facility] thodist 00:00:00 00:00:00 non-drinker of alcohol (finding) Smoking Status Start Date Stop Date Source Never smoker Roby martínez Medications Ordered Filled Start Stop Current Ordering Indication Dosage Frequency Signature Comments Components Source Medication Medication Date Date Medication? Clinician (SIG) Name Name diphenhydrA 2018 Yes 25mg QD Take 25 mg Ca MINE 6-15 by mouth [facility] (BENADRYL) 14:48: nightly. st 25 mg 25 capsule coenzyme 20180 Yes 100mg Q.5D Take 100 [place] Q10 6-15 mg by [facility] (COQ-10) 14:48: mouth 2 st 100 mg 25 (two) capsule times a day. apixaban 2017-0 Yes Q.5D Take by Jovito n (ELIQUIS) 6-15 mouth 2 [facility] 2.5 mg 14:48: (two) st tablet 25 times a day. folic acid Yes 1mg QD Take 1 mg [place] (FOLVITE) 1 6-15 by mouth Meth lydia MG tablet 14:48: daily. st 25 furosemide 0 Yes 40mg Take 40 mg [place] (LASIX) 40 6-15 by mouth. Meth lydia mg tablet 14:48: MWF st 25 insulin 0 Yes 30U QD Inject 30 [place] GLARGINE 6-15 Units [facility] (LANTUS) 14:48: under the st 100 unit/mL 25 skin every injection morning. (vial) therapeutic Yes 1{tbl} QD Take 1 [place] multivitami 6-15 tablet by Met yana n 14:48: mouth st (THERAGRAN) 25 daily. tablet insulin 2017-0 Yes [id number] Inject [place] aspart 6-15 [id number] under the Wi thodi (NOVOLOG 14:48: 3D skin [address] FLEXPEN 25 (three) U-100 times a INSULIN day. SUBQ) vit C/vit Yes Take by [place] E/lutein/mi 6-15 mouth. Method i n/omega-3 14:48: st (OCUVITE 25 ORAL) amIODarone 2017-0 Yes 100mg QD Take 100 [place] (PACERONE) 6-15 mg by Methodi 100 MG 14:48: mouth st tablet 25 nightly. simvastatin Yes 40mg QD Take 40 mg Ca (ZOCOR) 40 6-15 by mouth Metho di MG tablet 14:48: every st 25 morning. esomeprazol 0 Yes QD Take by Maribeth ston e (NexIUM) 6-15 mouth Methodi 20 MG 14:48: every st capsule 25 morning. metoprolol Yes 25mg Q.5D Take 25 mg [place] succinate 6-15 by mouth 2 Meth lydia XL (TOPROL 14:48: (two) st XL) 25 mg 25 times a 24 hr day. tablet valsartan Yes 320mg QD Take 320 Maribeth ston (DIOVAN) 6-15 mg by [facility]i 320 MG 14:48: mouth st tablet 25 nightly. niacin-lova Yes 1{tbl} QD Take [address] statin 3-28 tablet by [facility] - (ADVICOR) 13:19: mouth Medical 500-20 mg 07 nightly. Center 24 hr tablet coenzyme Yes 100mg QD Take [address] Q10 100 mg 3-28 mg by [facility] - capsule 13:19: mouth Medical 07 daily. Center furosemide Yes 40mg Q.5D Take [address] (LASIX) 40 3-28 by mouth 2 Katty es - MG tablet 13:19: (two) Medical 07 times Center daily. potassium Yes 10meq QD Take [address] chloride 3-28 mEq by [facility] - (KLOR-CON) 13:19: mouth Medica l 10 MEQ CR 07 daily. Center tablet insulin Yes Q.5D Inject [facility] glargine 3-28 subcutaneo [facility] - (LANTUS) 13:19: usly 2 Medical 100 unit/mL 07 (two) Center injection times daily. 15 units twice a day multivitami Yes 1{capsu QD Take [address] n capsule 3-28 le} capsule by Luke s - 13:19: mouth Medical 07 daily. Center esomeprazol Yes 20mg QD Take [address] [facility] e (NEXIUM) 3-28 by mouth [facility] - 20 MG 13:19: daily. Medical capsule 07 Center insulin Yes Inject [facility] aspart 3-28 subcutaneo [facility] - (NOVOLOG) 13:19: usly 3 Medica l 100 unit/mL 07 (three) Cente r InPn times daily with meals. 6 units three times a day amiodarone Yes 100mg QD Take [address] (PACERONE) 3-28 mg by [facility] - 100 MG 13:19: mouth Medical tablet 07 daily. Center metoprolol Yes 25mg Q.5D Take [address] (TOPROL-XL) 3-28 by mouth 2 Sisi kes - 25 MG 24 hr 13:19: (two) Medic al tablet 07 times Center daily. valsartan Yes 320mg QD Take [address] (DIOVAN) 3-28 mg by [facility] - 320 MG 13:19: mouth Medical tablet 07 daily. Center apixaban Yes 2.5mg Q.5D Take 2.[address] (ELIQUIS) 3-28 mg by [facility] - 2.5 mg Tab 13:19: mouth 2 Medi sandra tablet 07 (two) Center times daily. ondansetron Yes 4mg Take [address] (ZOFRAN 3-28 tablet (4 [facility] - ODT) 4 MG 00:00: mg total) Med ical disintegrat 00 by mouth Cent er ing tablet every 8 (eight) hours as needed for Nausea. Procedures This patient has no known procedures. Plan of Care Planned Activity Planned Date Details Comments Source Future Scheduled 2019-10-29 INFLUENZA VACCINE Jovito n Jain Test 00:00:00 [code = INFLUENZA VACCINE] Future Scheduled 1996-12-04 65+ PNEUMOCOCCAL Ca Jain Test 00:00:00 VACCINE (2 of 2 - PPSV23) [code = 65+ PNEUMOCOCCAL VACCINE (2 of 2 - PPSV23)] Future Scheduled 1981-12-04 SHINGLES VACCINES (#1) H shiloh Jain Test 00:00:00 [code = SHINGLES VACCINES (#1)] Future Scheduled 1941-12-04 DIABETIC FOOT EXAM Rosario montgomery Jain Test 00:00:00 [code = DIABETIC FOOT EXAM] Future Scheduled 1930 DIABETIC RETINAL EYE Maribethvarinder ya Jain Test 00:00:00 EXAM [code = DIABETIC RETINAL EYE EXAM] Encounters Start End Encounter Admission Attending Care Care Encounter Source Date/Time Date/Time Type Type Clinicians Facility Department ID 2018-11-11 2018-11-11 Office KAREN Van [id number] 10:07:06 11:03:16 Visit Aysha AMBULATOR [id number] Y [phone] [id number] Results Test Description Test Time Test Comments Results Result Comments Source GLUCOSE BEDSIDE TESTING 2018-05-01 11:34:00 Test Item Value Reference Range Interpretation Comme nts GLUCOSE BEDSIDE TESTING (test code = GLUBED) 167 mg/dL 70-110 H GLUCOSE BEDSIDE [id number] 11:31:00 Test Item Value Reference Range Interpretation Comments GLUCOSE BEDSIDE TESTING (test code 182 mg/dL 70-110 H = GLUBED) GLUCOSE BEDSIDE [id number] 08:00:00 Test Item Value Reference Range Interpretation Comments GLUCOSE BEDSIDE TESTING (test code 127 mg/dL 70-110 H = GLUBED) CBC W/AUTO [id number] 04:31:00 Test Item Value Reference Range Interpretation Comments WHITE BLOOD CELL (test 7.9 K/mm3 3.5-11.0 N code = WBC) RED BLOOD CELL (test 3.95 M/mm3 4.70-6.10 L code = RBC) HEMOGLOBIN (test code 12.5 G/DL 12.3-15.9 N = HGB) HEMATOCRIT (test code 36.1 % 35.8-46.7 N = HCT) MEAN CELL VOLUME (test 91.4 Fl 86.3-98.9 N code = MCV) MEAN CELL HGB (test 31.6 pg 28.9-34.4 N code = MCH) MEAN CELL HGB 34.6 G/DL 32.1-34.5 H CONCETRATION (test code = MCHC) RED CELL DISTRIBUTION 14.4 SD 11.5-14.5 N WIDTH (test code = RDW) PLATELET COUNT (test 137.0 K/mm3 150-450 L code = PLT) MEAN PLATELET VOLUME 9.90 fL 7.0-9.6 H (test code = MPV) NEUTROPHIL % (test 67.1 % 40-76 N code = NT%) LYMPHOCYTE % (test 15.5 % 20.5-51.1 L code = LY%) MONOCYTE % (test code 9.9 % 1.7-9.3 H = MO%) EOSINOPHIL % (test 7.1 % 0.0-6.0 H code = EO%) BASOPHIL % (test code 0.4 % 0.0-2.0 N = BA%) NEUTROPHIL # (test 5.33 K/mm3 1.8-7.6 N code = NT#) LYMPHOCYTE # (test 1.2 K/mm3 0.6-3.0 N code = LY#) MONOCYTE # (test code 0.8 K/mm3 0.2-1.5 N = MO#) EOSINOPHIL # (test 0.6 K/mm3 0.0-0.4 H code = EO#) BASOPHIL # (test code 0.0 K/mm3 0.0-0.2 N = BA#) MANUAL DIFF REQUIRED NO DIFF/SCN CRITERIA SLIDE R JAMESW (test code = MDIFF) CONSISTA NT WITH AUTO DIFFERENTIAL. COMPREHENSIVE METABOLIC [id number] 04:24:00 Test Item Value Reference Range Interpretation Comments SODIUM (test code = NA) 141 mmol/L 134-147 N POTASSIUM (test code = 4.2 mmol/L 3.4-5.0 N K) CHLORIDE (test code = 109 mmol/L 100-108 H CL) CARBON DIOXIDE (test 24 mmol/L 21-32 N code = CO2) ANION GAP (test code = 8.0 GAP calc 4.0-15.0 N GAP) GLUCOSE (test code = 132 MG/DL 70-110 H GLU) BLOOD UREA NITROGEN 15 MG/DL 7-18 N (test code = BUN) GLOMERULAR FILTRATION >=60 max estimate >60 RATE (test code = GFR) estGFR CREATININE (test code = 1.2 MG/DL 0.8-1.3 N CREAT) TOTAL PROTEIN (test code 5.8 G/DL 6.4-8.2 L = PROT) ALBUMIN (test code = 2.4 G/DL 3.4-5.0 L ALB) GLOBULIN (test code = 3.4 GM/dL GLOB) ALBUMIN/GLOBULIN RATIO 0.7 RATIO 1.2-2.2 L (test code = A/G) CALCIUM (test code = CA) 7.8 MG/DL 8.5-10.1 L BILIRUBIN TOTAL (test 0.70 MG/DL 0.2-1.2 N code = BILT) SGOT/AST (test code = 35 Unit/L 15-37 N AST) SGPT/ALT (test code = 118 Unit/L 12-78 H ALT) ALKALINE PHOSPHATASE 177 Unit/L 50-136 H TOTAL (test code = ALKP) CBC W/AUTO [id number] 04:13:00 Test Item Value Reference Range Interpretation Comments WHITE BLOOD CELL (test code = 7.9 K/mm3 3.5-11.0 N WBC) RED BLOOD CELL (test code = RBC) 3.95 M/mm3 4.70-6.10 L HEMOGLOBIN (test code = HGB) 12.5 G/DL 12.3-15.9 N HEMATOCRIT (test code = HCT) 36.1 % 35.8-46.7 N MEAN CELL VOLUME (test code = 91.4 Fl 86.3-98.9 N MCV) MEAN CELL HGB (test code = MCH) 31.6 pg 28.9-34.4 N MEAN CELL HGB CONCETRATION (test 34.6 G/DL 32.1-34.5 H code = MCHC) RED CELL DISTRIBUTION WIDTH (test 14.4 SD 11.5-14.5 N code = RDW) PLATELET COUNT (test code = PLT) 137.0 K/mm3 150-450 L MEAN PLATELET VOLUME (test code = 9.90 fL 7.0-9.6 H MPV) NEUTROPHIL % (test code = NT%) 67.1 % 40-76 N LYMPHOCYTE % (test code = LY%) 15.5 % 20.5-51.1 L MONOCYTE % (test code = MO%) 9.9 % 1.7-9.3 H EOSINOPHIL % (test code = EO%) 7.1 % 0.0-6.0 H BASOPHIL % (test code = BA%) 0.4 % 0.0-2.0 N NEUTROPHIL # (test code = NT#) 5.33 K/mm3 1.8-7.6 N LYMPHOCYTE # (test code = LY#) 1.2 K/mm3 0.6-3.0 N MONOCYTE # (test code = MO#) 0.8 K/mm3 0.2-1.5 N EOSINOPHIL # (test code = EO#) 0.6 K/mm3 0.0-0.4 H BASOPHIL # (test code = BA#) 0.0 K/mm3 0.0-0.2 N MANUAL DIFF REQUIRED (test code = DIFF/SCN CRITERIA MDIFF) GLUCOSE BEDSIDE [id number] 20:29:00 Test Item Value Reference Range Interpretation Comments GLUCOSE BEDSIDE TESTING (test code 150 mg/dL 70-110 H = GLUBED) GLUCOSE BEDSIDE [id number] 17:02:00 Test Item Value Reference Range Interpretation Comments GLUCOSE BEDSIDE TESTING (test code 160 mg/dL 70-110 H = GLUBED) - XR FLUOROSCOPY 0-60 [id number] 15:26:00 Name: LANG KEN [place] : 1930 Age/S: 87 / M [id number] Unit #: [id number] Loc: [place] [address] Phys: Buddy Diaz MD Acct: [id number] Dis Date: Status: ADM IN PHONE #: [phone] Exam Date: 04/29/2018914 FAX #: Reason: ERCP EXAMS: CPT: [id number] XR FLUOROSCOPY 0-60 MIN 46583 Fluoro Time: 55 SEC DAP (Gy m2): Air Kerma (mGy): EXAMINATION: - XR FLUOROSCOPY 0-60 MIN. LOCATION: S17. HISTORY: ERCP, cholangitis. COMPARISON: None. FINDINGS/ IMPRESSION: Eight portable limited intraoperative fluo roscopic images of right upper quadrant during ERCP are submitted to radiology department. Images demonstrate postoperative clips in right upper quadrant of abdomen. Opacification of CBD demonstrates prominent CBD with final image demonstrating stent placement. Please see operative report for further details. FLUOROSCOPIC: 55.1 seconds. 10.42 mGy. at 1526 Reported and signed by: Jayce Terry M.D. CC: Buddy Diaz MD PAGE 1 Signed Report Name: LANG KEN [place] : 1930 Age/S: 87 / M [address] Unit #: [id number] Loc: [place] [address] Phys: Buddy Diaz MD Acct: [id number] Dis Date: Status: ADMIN PHONE #: [phone] Exam Date: 04/29/2018 0915 FAX #: Reason: ERCP EXAMS: CPT: [id number] XR FLUOROSCOPY 0-60 MIN 34524 Fluoro Time: 55 SEC DAP (Gy m2): Air Kerma (mGy): <Continued> Technologist: Yasmine Pond, RT(R) Trnscb Date/Time: 04/29/2018 (1526) [email or web address] Orig Print D/T: S: 04/29/2018 (8906) PAGE 2 Signed ReportGLUCOSE BEDSIDE [id number] 11:01:00 Test Item Value Reference Range Interpretation Comments GLUCOSE BEDSIDE TESTING (test code 167 mg/dL 70-110 H = GLUBED) - XR CHEST 1 [id number] 07:08:00 Name: CARMENCITA KENY Galindo [facility] : 1930 Age/S: 87 / M [address] Unit #: [id number] Loc: [place] [address] Phys: Buddy Diaz MD Acct: [id number] Dis Date: Status: ADM IN PHONE #: [phone] Exam Date: 04/29/2018 0655 FAX #: Reason: PRE-OP EXAMS: CPT: [id number] XR CHEST 1 V 36621 Fluoro Time: DAP (Gy m2): Air Kerma (mGy): Location: L11. CHEST, FRONTAL VIEW HISTORY: PRE-OP COMPARISON: None FINDINGS: Cardiomegaly with minimal pulmonary edema and trace right pleural effusion. No focal consolidation or pneumothorax. The aorta is partially calcified. Sternotomy wires. Degenerative changes affect the thoracic spine. IMPRESSION: Borderline cardiomegaly with minimal pulmonary edema and trace right pleural effusion. E lectronically Signed by Sydni Youngblood on 04/29/2018 at 0708 Reported and signed by: Didi Youngblood M.D. CC: Buddy Diaz MD PAGE 1 Signed Report Name: LANG KEN [facility] : 1930 Age/S: 87 / M [address] Unit #: [id number] Loc: [place] [address] Phys: Buddy Diaz MD Acct: [id number] Dis Date: Status: ADM IN PHONE #: [phone] Exam Date: 04/29/2018 0655 FAX #: Reason: PRE-OP EXAMS: CPT: [id number] XR CHEST 1 V [id number] Fluoro Time: DAP (Gy m2): Air Kerma (mGy): <Continued> Technologist:Home Cruz RT(R) Trnscb Date/Time: 04/29/2018 (07) [email or web address] Orig Print D/T: S: 04/29/2018 (0714) PAGE 2 Signed Report GLUCOSE BEDSIDE [id number] 06:53:00 Test Item Value Reference Range Interpretation Comments GLUCOSE BEDSIDE TESTING (test code 187 mg/dL 70-110 H = GLUBED) COMPREHENSIVE METABOLIC [id number] 04:26:00 Test Item Value Reference Range Interpretation Comments SODIUM (test code = NA) 141 mmol/L 134-147 N POTASSIUM (test code = K) 4.3 mmol/L 3.4-5.0 N CHLORIDE (test code = CL) 108 mmol/L 100-108 N CARBON DIOXIDE (test code = CO2) 24 mmol/L 21-32 N ANION GAP (test code = GAP) 9.0 GAP calc 4.0-15.0 N GLUCOSE (test code = GLU) 165 MG/DL 70-110 H BLOOD UREA NITROGEN (test code = 18 MG/DL 7-18 N BUN) GLOMERULAR FILTRATION RATE (test 56 estGFR >60 L code = GFR) CREATININE (test code = CREAT) 1.3 MG/DL 0.8-1.3 N TOTAL PROTEIN (test code = PROT) 5.9 G/DL 6.4-8.2 L ALBUMIN (test code = ALB) 2.6 G/DL 3.4-5.0 L GLOBULIN (test code = GLOB) 3.3 GM/dL ALBUMIN/GLOBULIN RATIO (test 0.8 RATIO 1.2-2.2 L code = A/G) CALCIUM (test code = CA) 8.0 MG/DL 8.5-10.1 L BILIRUBIN TOTAL (test code = 0.80 MG/DL 0.2-1.2 N BILT) SGOT/AST (test code = AST) 33 Unit/L 15-37 N SGPT/ALT (test code = ALT) 164 Unit/L 12-78 H ALKALINE PHOSPHATASE TOTAL (test 194 Unit/L 50-136 H code = ALKP) CBC W/AUTO [id number] 04:10:00 Test Item Value Reference Range Interpretation Comments WHITE BLOOD CELL (test code = 7.4 K/mm3 3.5-11.0 N WBC) RED BLOOD CELL (test code = RBC) 4.08 M/mm3 4.70-6.10 L HEMOGLOBIN (test code = HGB) 12.3 G/DL 12.3-15.9 N HEMATOCRIT (test code = HCT) 36.7 % 35.8-46.7 N MEAN CELL VOLUME (test code = 90.0 Fl 86.3-98.9 N MCV) MEAN CELL HGB (test code = MCH) 30.1 pg 28.9-34.4 N MEAN CELL HGB CONCETRATION (test 33.5 G/DL 32.1-34.5 N code = MCHC) RED CELL DISTRIBUTION WIDTH (test 14.3 SD 11.5-14.5 N code = RDW) PLATELET COUNT (test code = PLT) 130.0 K/mm3 150-450 L MEAN PLATELET VOLUME (test code = 10.80 fL 7.0-9.6 H MPV) NEUTROPHIL % (test code = NT%) 71.8 % 40-76 N LYMPHOCYTE % (test code = LY%) 13.4 % 20.5-51.1 L MONOCYTE % (test code = MO%) 8.4 % 1.7-9.3 N EOSINOPHIL % (test code = EO%) 6.0 % 0.0-6.0 N BASOPHIL % (test code = BA%) 0.4 % 0.0-2.0 N NEUTROPHIL # (test code = NT#) 5.30 K/mm3 1.8-7.6 N LYMPHOCYTE # (test code = LY#) 1.0 K/mm3 0.6-3.0 N MONOCYTE # (test code = MO#) 0.6 K/mm3 0.2-1.5 N EOSINOPHIL # (test code = EO#) 0.4 K/mm3 0.0-0.4 N BASOPHIL # (test code = BA#) 0.0 K/mm3 0.0-0.2 N MANUAL DIFF REQUIRED (test code = NO DIFF/SCN CRITERIA MDIFF) GLUCOSE BEDSIDE [id number] 19:49:00 Test Item Value Reference Range Interpretation Comments GLUCOSE BEDSIDE TESTING (test code 198 mg/dL 70-110 H = GLUBED) GLUCOSE BEDSIDE [id number] 17:21:00 Test Item Value Reference Range Interpretation Comments GLUCOSE BEDSIDE TESTING (test code 215 mg/dL 70-110 H = GLUBED) GLUCOSE BEDSIDE [id number] 11:22:00 Test Item Value Reference Range Interpretation Comments GLUCOSE BEDSIDE TESTING (test code 204 mg/dL 70-110 H = GLUBED) GLUCOSE BEDSIDE [id number] 07:18:00 Test Item Value Reference Range Interpretation Comments GLUCOSE BEDSIDE TESTING (test code 163 mg/dL 70-110 H = GLUBED) COMPREHENSIVE METABOLIC [id number] 05:00:00 Test Item Value Reference Range Interpretation Comments SODIUM (test code = NA) 140 mmol/L 134-147 N POTASSIUM (test code = K) 4.2 mmol/L 3.4-5.0 N CHLORIDE (test code = CL) 106 mmol/L 100-108 N CARBON DIOXIDE (test code = CO2) 25 mmol/L 21-32 N ANION GAP (test code = GAP) 9.0 GAP calc 4.0-15.0 N GLUCOSE (test code = GLU) 163 MG/DL 70-110 H BLOOD UREA NITROGEN (test code = 24 MG/DL 7-18 H BUN) GLOMERULAR FILTRATION RATE (test 41 estGFR >60 L code = GFR) CREATININE (test code = CREAT) 1.7 MG/DL 0.8-1.3 H TOTAL PROTEIN (test code = PROT) 7.0 G/DL 6.4-8.2 N ALBUMIN (test code = ALB) 3.2 G/DL 3.4-5.0 L GLOBULIN (test code = GLOB) 3.8 GM/dL ALBUMIN/GLOBULIN RATIO (test 0.8 RATIO 1.2-2.2 L code = A/G) CALCIUM (test code = CA) 8.5 MG/DL 8.5-10.1 N BILIRUBIN TOTAL (test code = 1.30 MG/DL 0.2-1.2 H BILT) SGOT/AST (test code = AST) 96 Unit/L 15-37 H SGPT/ALT (test code = ALT) 280 Unit/L 12-78 H ALKALINE PHOSPHATASE TOTAL (test 249 Unit/L 50-136 H code = ALKP) CBC W/AUTO [id number] 04:43:00 Test Item Value Reference Range Interpretation Comments WHITE BLOOD CELL (test code = 10.4 K/mm3 3.5-11.0 N WBC) RED BLOOD CELL (test code = RBC) 4.53 M/mm3 4.70-6.10 L HEMOGLOBIN (test code = HGB) 14.4 G/DL 12.3-15.9 N HEMATOCRIT (test code = HCT) 41.4 % 35.8-46.7 N MEAN CELL VOLUME (test code = 91.4 Fl 86.3-98.9 N MCV) MEAN CELL HGB (test code = MCH) 31.8 pg 28.9-34.4 N MEAN CELL HGB CONCETRATION (test 34.8 G/DL 32.1-34.5 H code = MCHC) RED CELL DISTRIBUTION WIDTH (test 14.4 SD 11.5-14.5 N code = RDW) PLATELET COUNT (test code = PLT) 152.0 K/mm3 150-450 N MEAN PLATELET VOLUME (test code = 10.20 fL 7.0-9.6 H MPV) NEUTROPHIL % (test code = NT%) 71.9 % 40-76 N LYMPHOCYTE % (test code = LY%) 18.1 % 20.5-51.1 L MONOCYTE % (test code = MO%) 5.4 % 1.7-9.3 N EOSINOPHIL % (test code = EO%) 4.4 % 0.0-6.0 N BASOPHIL % (test code = BA%) 0.2 % 0.0-2.0 N NEUTROPHIL # (test code = NT#) 7.45 K/mm3 1.8-7.6 N LYMPHOCYTE # (test code = LY#) 1.9 K/mm3 0.6-3.0 N MONOCYTE # (test code = MO#) 0.6 K/mm3 0.2-1.5 N EOSINOPHIL # (test code = EO#) 0.5 K/mm3 0.0-0.4 H BASOPHIL # (test code = BA#) 0.0 K/mm3 0.0-0.2 N MANUAL DIFF REQUIRED (test code = NO DIFF/SCN CRITERIA MDIFF) GLUCOSE BEDSIDE [id number] 16:31:00 Test Item Value Reference Range Interpretation Comments GLUCOSE BEDSIDE TESTING (test code 182 mg/dL 70-110 H = GLUBED)
[2019-09-04 10:40] LABS: Absolute Lymphocytes (CBC) 1.1 K/uL (0.7-4.9); Basophils % 0.8 % (0-1.3); Hematocrit 36.3 % (39.6-49.0); Lymphocytes % 13.5 % (15.3-44.8); MPV 8.3 fL (7.6-11.3); RBC Red Blood Cell Count 4.02 M/uL (4.33-5.43)
[2019-09-04 10:49] LABS: Protime INR 2.08
[2019-09-04 11:02] LABS: Albumin 3.3 g/dL (3.4-5.0); Bilirubin Direct 0.2 mg/dL (0-0.2); Bilirubin Total 0.7 mg/dL (0.2-1.0); Magnesium 2.2 mg/dL (1.8-2.4); Protein, Total 6.6 g/dL (6.4-8.2); Troponin (Emerg Dept Use Only) 0.02 ng/mL (0.0-0.045)
--- NOTE | 2019-09-04 11:38 | RAD REPORT ---
EXAM DESCRIPTION: RAD - Chest Single View - 09/04/2019 10:10 am CLINICAL HISTORY: SOB Chest pain. COMPARISON: Chest Pa And Lat (2 Views) dated 12/02/2017; Abdomen 1 View (KUB) dated 07/21/2017; Chest P a And Lat (2 Views) dated 07/03/2017; Chest Pa And Lat (2 Views) dated 10/20/2016 FINDINGS: Portable technique limits examination quality. Interstitial prominence is present which may represent interstitial pneumonitis or mild interstitial pulmonary edema. The heart is mildly enlarged in size with sternotomy wires present. No displaced fra ctures. IMPRESSION: Mild CHF versus interstitial pneumonia.
--- NOTE | 2019-09-04 12:37 | ER ---
Nurse's Notes [facility] Name: Valente Armas Age: 88 yrs Sex: Male : 1930 Arrival Date: 09/04/2019 Time: 09:32 Bed 5 Private MD: Hermelindo Serra V Diagnosis: Mild congestive heart failure Presentation: 09/03 09:47 Chief complaint: Worsening SOB x 3 days. Denies cough/fever. Coronavirus screen: hb Patient reports shortness of breath or difficulty breathing. mask placed on pt. Ebola Screen: No symptoms or risks identified at this time. Initial Sepsis Screen: Does the patient meet any 2 criteria? No. Patient's initial sepsis screen is negative. Does the patient have a suspected source of infection? No. Patient's initial sepsis screen is negative. Risk Assessment: Do you want to hurt yourself or someone else? Patient reports no desire to harm self or others. Onset of symptoms was September 01, 2019. 09:47 Method Of Arrival: Ambulatory 09:47 Acuity: BEBETO 3 hb Historical: - Allergies: 09:52 No Known Allergies; hb - Home Meds: 09:52 amiodarone 100 mg Oral tab 1 tab once daily [Active]; Benadryl 25 mg Oral cap [Active]; hb Co Q-10 Oral [Active]; Eliquis 2.5 mg Oral tab 1 tab [Active]; folic acid 1 mg Oral tab [Active]; furosemide 40 mg Oral tab 1 tab [Active]; Klor-Con 10 10 mEq Oral TbER [Active]; Lantus 100 unit/mL Sub-Q soln [Active]; metoprolol tartrate 25 mg Oral tab [Active]; Nexium 40 mg Oral cpDR 1 cap once daily [Active]; Novolog 100 unit/mL Sub-Q soln [Active]; simvastatin 40 mg Oral tab 1 tab once daily [Active]; valsartan 320 mg Oral tab 1 tab once daily [Active]; viteyes twice a day [Active]; Zetia 10 mg Oral tab 1 tab once daily [Active]; - PMHx: 09:52 bowel obstruction; Atrial Fib; Diabetes - IDDM; GERD; Hyperlipidemia; Hypertension; hb macular degeneration; CHF; - Immunization history:: Adult Immunizations up to date. - Social history:: Smoking status: Patient denies any tobacco usage or history of. Screenin:34 Abuse screen: Denies threats or abuse. Denies injuries from another. Nutritional ph screening: No deficits noted. Tuberculosis screening: No symptoms or risk factors identified. Fall Risk None identified. Assessment: 10:32 General: Appears in no apparent distress. comfortable, slender, well groomed, Behavior ph is calm, cooperative, appropriate for age, Denies fever, feeling ill. Pain: Denies pain. Cardiovascular: Reports shortness of breath, Denies chest pain, lightheadedness, shortness of breath, vomiting, Capillary refill < 3 seconds in bilateral fingers Patient's skin is warm and dry. Rhythm is irregular. Respiratory: Reports shortness of breath at rest Airway is patent Respiratory effort is even, unlabored, Respiratory pattern is regular, symmetrical, Denies cough, pain with respiration. GI: No signs and/or symptoms were reported involving the gastrointestinal system. Derm: Skin is intact, Skin is pink, warm \T\ dry. Musculoskeletal: Circulation, motion, and sensation intact. Range of motion: intact in all extremities. 11:59 Reassessment: Patient appears in no apparent distress at this time. Patient and/or ph family updated on plan of care and expected duration. Pain level reassessed. Patient is alert, oriented x 3, equal unlabored respirations, skin warm/dry/pink. 12:53 Reassessment: Patient appears in no apparent distress at this time. Patient and/or ph family updated on plan of care and expected duration. Pain level reassessed. Patient is alert, oriented x 3, equal unlabored respirations, skin warm/dry/pink. Pt d/c home, instructed to follow up w/ PCP. Vital Signs: 09:47 BP 180 / 74; Pulse 62; Resp 20; Temp 97.2; Pulse Ox 98% ; Pain 0/10; hb 10:34 BP 145 / 92; Pulse 55; Resp 18; Pulse Ox 92% on R/A; ph 11:40 BP 147 / 68; Pulse 51; Resp 18; Pulse Ox 95% on R/A; em 12:54 BP 150 / 62; Pulse 59; Resp 18; Temp 97.9; Pulse Ox 96% on R/A; ph ED Course: :32 Patient arrived in ED. as 09:32 Hermelindo Serra MD is Private Physician. as 09:40 Carmine Butt NP is PHCP. pm1 09:40 Junito Calvo MD is Attending Physician. pm1 09:41 Zahira Li, RN is Primary Nurse. ph 09:50 Triage completed. hb 09:52 Arm band placed on. hb 10:04 EKG done, by ED staff, reviewed by Carmine Butt [employer]INGLE [employer]OLT CUTTER. 3 10:11 XRAY Chest (1 view) In Process Unspecified. EDMS 10:25 Initial lab(s) drawn, by me, sent to lab. Inserted saline lock: 20 gauge in right ph antecubital area, using aseptic technique. Blood collected. 10:34 Patient has correct armband on for positive identification. Bed in low position. Call ph light in reach. Side rails up X 1. monitoring and evaluation advisor on. Pulse ox on. NIBP on. Door closed. Noise minimized. Warm blanket given. 12:37 Hermelindo Serra MD is Referral Physician. pm1 12:55 No provider procedures requiring assistance completed. IV discontinued, intact, ph bleeding controlled, No redness/swelling at site. Pressure dressing applied. Administered Medications: 12:37 Drug: LaSIX 40 mg Route: PO; em 12:56 Follow up: Response: No adverse reaction ph Outcome: 12:37 Discharge ordered by . pm1 12:55 Discharged to home ambulatory. ph 12:55 Condition: good 12:55 Discharge instructions given to patient, Instructed on discharge instructions, follow up and referral plans. Demonstrated understanding of instructions, follow-up care. 12:56 Patient left the ED. ph Signatures: Dispatcher [employer] EDOK Jose Gonzales, ALEAH BULLARD em Mya Velazquez as Zahira Li, ALEAH RN Carmine Butt NP [employer] C[employer]TER pm1 Kami Nelson RN RN Minda Rodriguez counts include 234 beds at the [facility]
--- NOTE | 2019-09-04 12:38 | EDPHYS ---
Physician Documentation [facility] Name: Valente Armas Age: 88 yrs Sex: Male : 1930 Arrival Date: 09/04/2019 Time: 09:32 Bed 5 Private MD: Hermelindo Serra V ED Physician Junito Calvo HPI: 09/03 09:53 This 88 yrs old Male presents to ER via Ambulatory with complaints of pm1 Shortness Of Breath. 09:53 The patient has shortness of breath. Onset: The symptoms/episode began/occurred 6 pm1 month(s) ago. The patient's shortness of breath is aggravated by exertion, noticeable with playing golf, walking the course. Associated signs and symptoms: Pertinent negatives: chest pain, non-productive cough, productive cough, diaphoresis, fever, nausea, vomiting. Severity of symptoms: in the emergency department the symptoms are worse. The patient has experienced similar episodes in the past, a few times. Last saw his PCP Dr. Serra for the same complaint 2 months ago. Told that his lungs were clear. No changes in medical management. Patient reports that he felt like he had gurgling with exhaling and was worried that he might have some fluids in his lungs. Historical: - Allergies: 09:52 No Known Allergies; hb - Home Meds: 09:52 amiodarone 100 mg Oral tab 1 tab once daily [Active]; Benadryl 25 mg Oral cap [Active]; hb Co Q-10 Oral [Active]; Eliquis 2.5 mg Oral tab 1 tab [Active]; folic acid 1 mg Oral tab [Active]; furosemide 40 mg Oral tab 1 tab [Active]; Klor-Con 10 10 mEq Oral TbER [Active]; Lantus 100 unit/mL Sub-Q soln [Active]; metoprolol tartrate 25 mg Oral tab [Active]; Nexium 40 mg Oral cpDR 1 cap once daily [Active]; Novolog 100 unit/mL Sub-Q soln [Active]; simvastatin 40 mg Oral tab 1 tab once daily [Active]; valsartan 320 mg Oral tab 1 tab once daily [Active]; viteyes twice a day [Active]; Zetia 10 mg Oral tab 1 tab once daily [Active]; - PMHx: 09:52 bowel obstruction; Atrial Fib; Diabetes - IDDM; GERD; Hyperlipidemia; Hypertension; hb macular degeneration; CHF; - Immunization history:: Adult Immunizations up to date. - Social history:: Smoking status: Patient denies any tobacco usage or history of. ROS: 09:53 Constitutional: Negative for fever, chills, and weight loss, Neck: Negative for injury, pm1 pain, and swelling, Cardiovascular: Negative for chest pain, palpitations, and edema. 09:53 ENT: Negative for injury, pain, and discharge, Abdomen/GI: Negative for abdominal pain, nausea, vomiting, diarrhea, and constipation, Back: Negative for injury and pain, MS/Extremity: Negative for injury and deformity, Skin: Negative for injury, rash, and discoloration, Neuro: Negative for headache, weakness, numbness, tingling, and seizure. 09:53 Respiratory: Positive for shortness of breath, on exertion. Negative for cough, sputum production, wheezing. Exam: 09:53 Constitutional: This is a well developed, well nourished patient who is awake, alert, pm1 and in no acute distress. Head/Face: Normocephalic, atraumatic. Neck: Trachea midline, no thyromegaly or masses palpated, and no cervical lymphadenopathy. Supple, full range of motion without nuchal rigidity, or vertebral point tenderness. No Meningismus. Chest/axilla: Normal chest wall appearance and motion. Nontender with no deformity. No lesions are appreciated. 09:53 Abdomen/GI: Soft, non-tender, with normal bowel sounds. No distension or tympany. No guarding or rebound. No evidence of tenderness throughout. Back: No spinal tenderness. No costovertebral tenderness. Full range of motion. Skin: Warm, dry with normal turgor. Normal color with no rashes, no lesions, and no evidence of cellulitis. MS/ Extremity: Pulses equal, no cyanosis. Neurovascular intact. Full, normal range of motion. 09:53 Cardiovascular: Exam negative for acute changes, Rate: normal, Rhythm: irregular, Pulses: no pulse deficits are appreciated, Heart sounds: normal. 09:53 Respiratory: Exam negative for acute changes, tachypnea, the patient does not display signs of respiratory distress, Respirations: normal, Breath sounds: are clear throughout, no bronchial sounds, no decreased breath sounds, no rales, rhonchi, no wheezing. 09:53 Neuro: Exam negative for acute changes, Orientation: is normal, Mentation: is normal, Motor: is normal, moves all fours, Sensation: is normal, no obvious gross deficits. Vital Signs: 09:47 BP 180 / 74; Pulse 62; Resp 20; Temp 97.2; Pulse Ox 98% ; Pain 0/10; hb 10:34 BP 145 / 92; Pulse 55; Resp 18; Pulse Ox 92% on R/A; ph 11:40 BP 147 / 68; Pulse 51; Resp 18; Pulse Ox 95% on R/A; em 12:54 BP 150 / 62; Pulse 59; Resp 18; Temp 97.9; Pulse Ox 96% on R/A; ph MDM: 09:41 Patient medically screened. pm1 12:33 Data reviewed: vital signs. Data interpreted: Pulse oximetry: on room air is 98 %. pm1 Interpretation: normal. Counseling: I had a detailed discussion with the patient and/or guardian regarding: the historical points, exam findings, and any diagnostic results supporting the discharge/admit diagnosis, lab results, radiology results, the need for outpatient follow up, his health center assistant or PCP, to return to the emergency department if symptoms worsen or persist or if there are any questions or concerns that arise at home. 12:38 ED course: Instructed patient to take additional Lasix and then to follow up with his pm1 health center assistant. Patient currently takes Lasix 40 mg on . Gave the patient Lasix 40 mg in the ER and instructed him to take one on Thursday then to continue his prescribed dosage; then follow up with health center assistant. 09/03 09:48 Order name: Basic Metabolic Panel; Complete Time: 11: pm09/03 09:48 Order name: CBC with Diff; Complete Time: 10:47 pm09/03 09:48 Order name: LFT's; Complete Time: 11: pm09/03 09:48 Order name: Magnesium; Complete Time: 11: pm09/03 09:48 Order name: NT PRO-BNP; Complete Time: 11:07 pm09/03 09:48 Order name: PT-INR; Complete Time: 11: pm09/03 09:48 Order name: Troponin (emerg Dept Use Only); Complete Time: 11:07 pm1 09/03 09:48 Order name: XRAY Chest (1 view); Complete Time: 11:44 pm1 09/03 09:48 Order name: EKG; Complete Time: 09:50 pm1 09/03 09:48 Order name: Cardiac monitoring; Complete Time: 10:07 pm1 09/03 09:48 Order name: EKG - Nurse/Tech; Complete Time: 10:07 pm1 09/03 09:48 Order name: IV Saline Lock; Complete Time: 10:48 pm1 09/03 09:48 Order name: Labs collected and sent; Complete Time: 10:48 pm1 09/03 09:48 Order name: O2 Per Protocol; Complete Time: 10:48 pm1 09/03 09:48 Order name: O2 Sat Monitoring; Complete Time: 10:48 pm1 Administered Medications: 12:37 Drug: LaSIX 40 mg Route: PO; em 12:56 Follow up: Response: No adverse reaction ph Disposition: 15:19 Co-signature as Attending Physician, Junito Calvo MD. rn Disposition: 09/04/19 12:37 Discharged to Home. Impression: Mild congestive heart failure. - Condition is Stable. - Discharge Instructions: Heart Failure. - Medication Reconciliation Form, Thank You Letter, Antibiotic Education, Prescription Opioid Use form. - Follow up: Emergency Department; When: As needed; Reason: Worsening of condition. Follow up: Private Physician; When: 2 - 3 days; Reason: Recheck today's complaints, Continuance of care, Re-evaluation by your physician. Follow up: Hermelindo Serra MD; When: 2 - 3 days; Reason: Recheck today's complaints, Continuance of care, Re-evaluation by your physician. - Problem is new. - Symptoms have improved. Signatures: Dispatcher [employer] Jose Valerio RN RN em Junito Calvo MD MD rn Hall, Patricia, RN RN ph Marinas, Patrick, NP [employer] LATHE MACHINIST pm1 Kami Nelson RN RN Corrections: (The following items were deleted from the chart) 12:56 12:37 09/04/2019 12:37 Discharged to Home. Impression: Mild congestive heart failure. ph Condition is Stable. Forms are Medication Reconciliation Form, Thank You Letter, Antibiotic Education, Prescription Opioid Use. Follow up: Emergency Department; When: As needed; Reason: Worsening of condition. Follow up: Private Physician; When: 2 - 3 days; Reason: Recheck today's complaints, Continuance of care, Re-evaluation by your physician. Follow up: Hermelindo Serra; When: 2 - 3 days; Reason: Recheck today's complaints, Continuance of care, Re-evaluation by your physician. Problem is new. Symptoms have improved. pm1
[2019-09-04] MEDS ORDERED: FUROSEMIDE 40 MG TABLET ONE (12:45)
[2019-09-04 13:07] VITALS: BP 150/62; TEMP 97.9; O2SAT 96
--- NOTE | 2019-09-05 07:46 | EKG ---
Test Date: 2019-09-04 Test Time: 10:01:23 Core Inspector: GILMER MEASUREMENT RESULTS: Intervals: Rate: 59 OK: QRSD: 112 QT: 436 QTc: 431 [place]: P: OK: QRS: -38 T: 25 INTERPRETIVE STATEMENTS: Atrial fibrillation with slow ventricular response Left axis deviation Incomplete left bundle branch block Abnormal ECG Compared to ECG 05/13/2015 04:29:33 Left bundle-branch block now present Ventricular premature complex(es) no longer present Myocardial infarct finding no longer present Electronically Signed On 09-05-19 07:44:42 CDT by Lowell Pinedo
== END 2019-09-04 12:56 | disposition home or self-care (01) ==
LOC: ER 09:30
DX: I50.9 Heart failure, unspecified (principal); I10 Essential (primary) hypertension; E78.5 Hyperlipidemia, unspecified; E11.9 Type 2 diabetes mellitus without complications; I48.91 Unspecified atrial fibrillation; Z79.01 Long term (current) use of anticoagulants; Z79.4 Long term (current) use of insulin
CPT/HCPCS: 36415; 71045; 80048; 80076; 83735; 83880; 84484; 85025; 85610; 93005; 99284

== ENCOUNTER 2019-10-03 14:58 | Observation (INO) | payer OTHER ==
[2019-10-03] MEDS ORDERED: D50W 25 GM/50 ML SYRINGE/VIAL IV PRN (16:23)
[2019-10-03] MEDS ORDERED: GLUCAGON 1 MG/VIAL IM PRN (16:23)
[2019-10-03] MEDS: INSULIN -REGULAR HUMAN 50 UNIT/0.5 ML ML SQ SCH ×2 (16:30→21:00)
[2019-10-03] MEDS ORDERED: ONDANSETRON 4 MG/2 ML VIAL IV PRN (17:00)
[2019-10-03] MEDS ORDERED: ACETAMINOPHEN 325 MG TABLET PO PRN (17:00)
[2019-10-03] MEDS ORDERED: NACHLORIDE 0.45% 1,000 ML IV SCH (17:00)
[2019-10-03] MEDS ORDERED: DIPHENHYDRAMINE 25 MG TAB/CAP PO PRN (17:00)
[2019-10-03] MEDS ORDERED: POLYETHYL GLY 3350 17 GM/DOSE PO PRN (17:00)
[2019-10-03] MEDS ORDERED: LOPERAMIDE HCL 2 MG CAPSULE PO PRN (17:00)
[2019-10-03] MEDS ORDERED: ONDANSETRON 4 MG (ODT) TAB PO PRN (17:00)
[2019-10-03] MEDS ORDERED: PNEUMOCOCCAL VACCINE 0.5 ML IMVAC ONE (17:00)
[2019-10-03 17:48] VITALS: BMI 22.4
--- NOTE | 2019-10-03 17:50 | RAD REPORT ---
EXAM DESCRIPTION: RAD - Chest Pa And Lat (2 Views) - 10/03/2019 5:41 pm CLINICAL HISTORY: anemia COMPARISON: Two view chest September 28 TECHNIQUE: Frontal and lateral views of the chest were obtained. 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 No new mass or infiltrate. Interstitial pattern is similar to comp arison. Calcified pleural plaquing changes are evident most notable in the lower left lung field. Jaime rnotomy wires are in place. Heart size is normal and central vasculature is within normal limits. No pleural effusion or pneumothorax seen. No acute bony finding noted. No aortic abnormality. 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 No acute findings since September 28 imaging.
[2019-10-03] MEDS: PANTOPRAZOLE INJ 80 MG in NA CHLORIDE 0.9% 250 ML IV SCH (18:01)
--- OUTSIDE RECORDS SUMMARY | 2019-10-03 18:01 | XMS REPORT | Clinical Summary ---
:1930 Author Organization [facility] Address [address] [place] [address] Care Team Providers Name Role Phone Zack [...] Not on file Results Not on fileafter 10/02/2018 Insurance Payer Benefit Plan / Group Subscriber ID Type Phone A ddress MEDICARE MEDICARE A B xxxxxxxxxx Medicare AETNA - MGD CARE AETNA INDEMNITY NON CONTR xxxxxxxxx Comm
--- OUTSIDE RECORDS SUMMARY | 2019-10-03 18:01 | XMS REPORT | Clinical Summary ---
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
--- OUTSIDE RECORDS SUMMARY | 2019-10-03 18:01 | XMS REPORT | Continuity of Care Document ---
:[address] [facility] t Address [address] [place] [address] Care Team Providers Name Role Phone Zack [...] Allergie 04-27 Clear s 00:00: Kapoor 00 [facility] Family History Family Member Diagnosis Comments Start Date Stop Date Source Natural brother Cancer [facility] rhonda Natural father Heart disease [place] [facility] Natural mother Heart disease [facility] Social History Social Habit Start Date Stop Date Quantity Comments Source Sex Assigned At [facility] Alcohol intake 2017-09-24 2017-09-24 Current [facility] thodist 00:00:00 00:00:00 non-drinker of alcohol (finding) [...] (THERAGRAN) 25 daily. tablet insulin 2017-0 Yes [id number] Inject [place] aspart 6-15 [id number] under the Ak thodi (NOVOLOG 14:48: 3D skin [address] st [...] Future Scheduled 2019-10-29 INFLUENZA VACCINE Jovito n [facility] Test 00:00:00 [code = INFLUENZA VACCINE] Future Scheduled 1996-12-04 65+ PNEUMOCOCCAL Ca [facility] Test 00:00:00 VACCINE (2 of 2 - PPSV23) [code = 65+ PNEUMOCOCCAL VACCINE (2 of 2 - PPSV23)] Future Scheduled 1981-12-04 SHINGLES VACCINES (#1) H shiloh [facility] Test 00:00:00 [code = SHINGLES VACCINES (#1)] Future Scheduled 1941-12-04 DIABETIC FOOT EXAM Rosario montgomery [facility] Test 00:00:00 [code = DIABETIC FOOT EXAM] Future Scheduled 1930 DIABETIC RETINAL EYE Maribethvarinder ya [facility] Test 00:00:00 EXAM [code = DIABETIC RETINAL EYE EXAM] Encounters Start End Encounter Admission Attending Care Care Encounter Source Date/Time Date/Time Type Type Clinicians Facility Department ID 2018-11-11 2018-11-11 Office KAREN Van [id number] 10:07:06 11:03:16 Visit Aysha AMBULATOR [id number] Y [id number] Results Test Description Test Time Test Comments Results Result Comments Source GLUCOSE BEDSIDE TESTING 2018-05-01 11:34:00 Test Item Value Reference Range Interpretation Comme nts GLUCOSE BEDSIDE TESTING (test code = GLUBED) 167 mg/dL 70-110 H GLUCOSE BEDSIDE [id number] 11:31:00 Test Item Value Reference Range Interpretation Comments GLUCOSE BEDSIDE TESTING (test code 182 mg/dL 70-110 H = GLUBED) GLUCOSE BEDSIDE [id number] 08:00:00 Test Item Value Reference Range Interpretation Comments GLUCOSE BEDSIDE TESTING (test code 127 mg/dL 70-110 H = GLUBED) CBC W/AUTO [id number] 04:31:00 Test Item Value Reference Range Interpretation [...] CONSISTA NT WITH AUTO DIFFERENTIAL. COMPREHENSIVE METABOLIC [id number] 04:24:00 Test Item Value Reference Range Interpretation [...] TOTAL (test code = ALKP) CBC W/AUTO [id number] 04:13:00 Test Item Value Reference Range Interpretation [...] code = DIFF/SCN CRITERIA MDIFF) GLUCOSE BEDSIDE [id number] 20:29:00 Test Item Value Reference Range Interpretation Comments GLUCOSE BEDSIDE TESTING (test code 150 mg/dL 70-110 H = GLUBED) GLUCOSE BEDSIDE [id number] 17:02:00 Test Item Value Reference Range Interpretation Comments GLUCOSE BEDSIDE TESTING (test code 160 mg/dL 70-110 H = GLUBED) - XR FLUOROSCOPY 0-60 [id number] 15:26:00 Name: LANG KEN [place] : 1930 Age/S: 87 / M [address] Unit #: [id number] Loc: [place] [address] Phys: Buddy Diaz MD Acct: [id number] Dis Date: Status: ADM IN PHONE #: [phone] Exam Date: 04/29/2018914 FAX #: Reason: ERCP EXAMS: CPT: [id number] XR FLUOROSCOPY 0-60 MIN 34783 Fluoro Time: 55 SEC DAP (Gy m2): [...] PAGE 1 Signed Report Name: LANG KEN [place] : 1930 Age/S: 87 / M [address] Unit #: [id number] Loc: [place] [address] Phys: Buddy Diaz MD Acct: [id number] Dis Date: Status: ADMIN PHONE #: [phone] Exam Date: 04/29/2018 0915 FAX #: Reason: ERCP EXAMS: CPT: [id number] XR FLUOROSCOPY 0-60 MIN 51819 Fluoro Time: 55 SEC DAP (Gy m2): Air Kerma (mGy): <Continued> Technologist: Yasmine Pond, RT(R) Trnscb Date/Time: 04/29/2018 (1526) [email or web address] Orig Print D/T: S: 04/29/2018 (5902) PAGE 2 Signed ReportGLUCOSE BEDSIDE [id number] 11:01:00 Test Item Value Reference Range Interpretation Comments GLUCOSE BEDSIDE TESTING (test code 167 mg/dL 70-110 H = GLUBED) - XR CHEST 1 [id number] 07:08:00 Name: CARMENCITA KENY Galindo [facility] : 1930 Age/S: 87 / M [address] Unit #: [id number] Loc: [place] [address] Phys: Buddy Diaz MD Acct: [id number] Dis Date: Status: ADM IN PHONE #: [phone] Exam Date: 04/29/2018 0655 FAX #: Reason: PRE-OP EXAMS: CPT: [id number] XR CHEST 1 V 49442 Fluoro Time: DAP (Gy m2): Air Kerma [...] PAGE 1 Signed Report Name: LANG KEN [facility] : 1930 Age/S: 87 / M [address] Unit #: [id number] Loc: [place] [address] Phys: Buddy Diaz MD Acct: [id number] Dis Date: Status: ADM IN PHONE #: [phone] Exam Date: 04/29/2018 0655 FAX #: Reason: PRE-OP EXAMS: CPT: [id number] XR CHEST 1 V 75713 Fluoro Time: DAP (Gy m2): Air Kerma (mGy): <Continued> Technologist:Home Cruz RT(R) Trnscb Date/Time: 04/29/2018 (07) [id number] Orig Print D/T: S: 04/29/2018 (0785) PAGE 2 Signed Report GLUCOSE BEDSIDE [id number] 06:53:00 Test Item Value Reference Range Interpretation Comments GLUCOSE BEDSIDE TESTING (test code 187 mg/dL 70-110 H = GLUBED) COMPREHENSIVE METABOLIC [id number] 04:26:00 Test Item Value Reference Range Interpretation [...] 50-136 H code = ALKP) CBC W/AUTO [id number] 04:10:00 Test Item Value Reference Range Interpretation [...] = NO DIFF/SCN CRITERIA MDIFF) GLUCOSE BEDSIDE [id number] 19:49:00 Test Item Value Reference Range Interpretation Comments GLUCOSE BEDSIDE TESTING (test code 198 mg/dL 70-110 H = GLUBED) GLUCOSE BEDSIDE [id number] 17:21:00 Test Item Value Reference Range Interpretation Comments GLUCOSE BEDSIDE TESTING (test code 215 mg/dL 70-110 H = GLUBED) GLUCOSE BEDSIDE [id number] 11:22:00 Test Item Value Reference Range Interpretation Comments GLUCOSE BEDSIDE TESTING (test code 204 mg/dL 70-110 H = GLUBED) GLUCOSE BEDSIDE [id number] 07:18:00 Test Item Value Reference Range Interpretation Comments GLUCOSE BEDSIDE TESTING (test code 163 mg/dL 70-110 H = GLUBED) COMPREHENSIVE METABOLIC [id number] 05:00:00 Test Item Value Reference Range Interpretation [...] 50-136 H code = ALKP) CBC W/AUTO [id number] 04:43:00 Test Item Value Reference Range Interpretation [...] = NO DIFF/SCN CRITERIA MDIFF) GLUCOSE BEDSIDE [id number] 16:31:00 Test Item Value Reference Range Interpretation Comments GLUCOSE BEDSIDE TESTING (test code 182 mg/dL 70-110 H = GLUBED)
[2019-10-03] MEDS ORDERED: NA CHLORIDE 0.9% 500 ML ONE (22:43)
[2019-10-04 05:41] LABS: Urine Appearance CLEAR; Urine Bilirubin NEGATIVE (NEG); Urine Blood NEGATIVE (NEG); Urine Color YELLOW; Urine Glucose NEGATIVE (NEG); Urine Protein NEGATIVE (NEG); Urine pH 5.5 (5.0-7.0)
[2019-10-04 05:43] LABS: Magnesium 2.2 mg/dL (1.8-2.4); Potassium 4.6 mmol/L (3.5-5.1)
[2019-10-04 05:49] LABS: Urine Microscopic Reflex NO UMIC
[2019-10-04 05:50] LABS: Absolute Lymphocytes (CBC) 1.7 K/uL (0.7-4.9); Basophils % 0.8 % (0-1.3); Hematocrit 23.5 % (39.6-49.0); Lymphocytes % 24.2 % (15.3-44.8); MPV 8.1 fL (7.6-11.3); RBC Red Blood Cell Count 2.67 M/uL (4.33-5.43)
[2019-10-04 05:51] LABS: Protime INR 1.07
[2019-10-04] MEDS: INSULIN -REGULAR HUMAN 50 UNIT/0.5 ML ML SQ SCH (07:30)
[2019-10-04 08:11] VITALS: BP 140/64; TEMP 97
[2019-10-04] MEDS: PANTOPRAZOLE INJ 80 MG in NA CHLORIDE 0.9% 250 ML IV SCH (08:32)
[2019-10-04 09:13] VITALS: O2SAT 96
--- NOTE | 2019-11-04 09:54 | P.DS ---
Admission Date: 10/03/19 Discharge Date: 11/04/19 Disposition: ROUTINE DISCHARGE Discharge Condition: FAIR Brief History of Present Illness: MR. KEN CAME TO OFFICE WITH SEVERE FATIGUE. HE HAS SEVERE ANEMIA. HE IS ON ANTICOAGULATION FOR A FIB. HE WAS GIVEN 3 UNITS OF PACKED RBCS. HE IS STABLE FOR DC AND WILL GO TO DR. LEMUS FOR WATCHMAN PROCEDURE. HE CAN'T TAKE ANTICOAGULATION FO RNOW. HE WILL ALSO FU WITH HIS GI DOCTOR FOR SLOW GI BLEED. Vital Signs/Physical Exam: Temp Pulse Resp BP Pulse Ox 97.0 F 59 17 140/64 96 10/04/19 08:00 10/04/19 08:00 10/04/19 08:00 10/04/19 08:00 10/04/19 08:00 General: Alert, In no apparent distress HEENT: Atraumatic, PERRLA, EOMI Neck: Supple, JVD not distended Respiratory: Clear to auscultation bilaterally, Normal air movement Cardiovascular: Irregular heart rate/rhythm Gastrointestinal: Normal bowel sounds, No tenderness Musculoskeletal: No tenderness Integumentary: No rashes Neurological: Normal speech, Normal tone, Normal affect Lymphatics: No axilla or inguinal lymphadenopathy Laboratory Data at Discharge: WBC 7.1 K/uL (4.3-10.9) 10/04/19 05:05 Hgb Cancelled 10/04/19 10:30 Hct Cancelled 10/04/19 10:30 Plt Count 183 K/uL (152-406) D 10/04/19 05:05 PT 12.6 SECONDS (9.5-12.5) H 10/04/19 05:05 INR 1.07 10/04/19 05:05 Sodium 144 mmol/L (136-145) 10/04/19 05:05 Potassium 4.6 mmol/L (3.5-5.1) 10/04/19 05:05 BUN 30 mg/dL (7-18) H 10/04/19 05:05 Creatinine 1.33 mg/dL (0.55-1.3) H 10/04/19 05:05 Glucose 100 mg/dL (74-106) 10/04/19 05:05 Magnesium 2.2 mg/dL (1.8-2.4) 10/04/19 05:05 Home Medications: Diphenhydramine HCl [Benadryl Allergy] 25 mg PO BEDTIME 04/25/18 Esomeprazole Mag Trihydrate [Nexium] 40 mg PO DAILY 04/25/18 Ezetimibe [Zetia] 10 mg PO DAILY 04/25/18 Folic Acid 1 mg PO DAILY 04/25/18 Insulin Aspart [Novolog] 8 units SQ AC 04/25/18 Insulin Glargine,Hum.rec.anlog [Lantus] 32 unit SQ BREAKFAST 04/25/18 Metoprolol Tartrate 25 mg PO DAILY 04/25/18 Simvastatin 40 mg PO DAILY 04/25/18 Ubidecarenone [Co Q-10] 100 mg PO BID 04/25/18 Valsartan 160 mg PO DAILY 04/25/18 Patient Discharge Instructions: GET OVER THE COUNTER IRON TABLET, TWO DAILY. [address] POST TO GET WATCHMAN PROCEDURE DONE. FU WITH MY OFFICE NEXT WEEK. Diet: AHA Followup: Hermelindo Serra MD [Primary Care Provider] - (Call to schedule an appointment for next week. )
== END 2019-10-04 10:15 | disposition home or self-care (01) ==
LOC: 2ND 15:41
PROVIDERS: ADMIT Internal Medicine; ATTEND Internal Medicine
DX: D64.9 Anemia, unspecified (principal); K92.1 Melena; Z11.59 Encounter for screening for other viral diseases; E11.9 Type 2 diabetes mellitus without complications; I10 Essential (primary) hypertension; J44.9 Chronic obstructive pulmonary disease, unspecified; E78.5 Hyperlipidemia, unspecified; I48.91 Unspecified atrial fibrillation; Z79.4 Long term (current) use of insulin; Z79.899 Other long term (current) drug therapy
CPT/HCPCS: 87040; 85025; 80048; 36415; 86900; 83735; 86850; 85610; 86901; 82947 ×4; 81003; 71046; U0002; C9113; G0378 ×2; P9016 ×3; J7030; J7040

== ENCOUNTER 2021-02-08 20:22 | Emergency (ER) | payer OTHER ==
--- NOTE | 2021-02-08 21:45 | RAD REPORT ---
EXAM DESCRIPTION: RAD - Chest Single View - 02/08/2021 9:37 pm CLINICAL HISTORY: FEVER COMPARISON: Chest Pa And Lat (2 Views) dated 01/07/2021; Chest Pa And Lat (2 Views) dated 10/03/2019; Chest Pa And Lat (2 Views) dated 09/29/2019; Chest Single View dated 09/04/2019 FINDINGS: Lines: Pacemaker Lungs: No evidence of edema or pneumonia. Pleural: No significant pleural effusions or pneumothorax. Cardiac: The heart size is within normal limits. Bones: No acute fractures. Sternotomy. Other: IMPRESSION: No acute cardiopulmonary disease.
[2021-02-08] MEDS ORDERED: ACETAMINOPHEN 325 MG TABLET ONE (22:23)
[2021-02-08] MEDS ORDERED: NA CHLORIDE 0.9% 1,000 ML ONE (22:24)
[2021-02-08] MEDS ORDERED: NA CHLORIDE 0.9% 500 ML ONE (22:24)
[2021-02-08] MEDS ORDERED: ONDANSETRON 4 MG/2 ML VIAL ONE (22:24)
[2021-02-08 22:33] LABS: Basophils % 0.1 % (0-1.3); Hematocrit 43.6 % (39.6-49.0); Lymphocytes % 5.6 % (15.3-44.8); MPV 8.4 fL (7.6-11.3); Protime INR 2.22; RBC Red Blood Cell Count 5.35 M/uL (4.33-5.43)
[2021-02-08 22:49] LABS: ALT/SGPT 31 U/L (12-78); AST/SGOT 27 U/L (15-37); Albumin 3.7 g/dL (3.4-5.0); Alkaline Phosphatase 98 U/L (45-117); BUN Blood Urea Nitrogen 20 mg/dL (7-18); Bicarbonate 25 mmol/L (21-32); Bilirubin Direct 0.5 mg/dL (0-0.2); Bilirubin Total 1.6 mg/dL (0.2-1.0); Glucose Level 240 mg/dL (74-106); NT PRO-BNP 1983 pg/mL (<450); Potassium 4.4 mmol/L (3.5-5.1); Protein, Total 7.4 g/dL (6.4-8.2); Sodium Level 138 mmol/L (136-145); Troponin (Emerg Dept Use Only) < 0.02 ng/mL (0.0-0.045)
[2021-02-08 22:52] LABS: Urine Blood 3+ (Negative); Urine Glucose 1+ (Negative); Urine Protein 2+ (Negative); Urine Specific Gravity >=1.030 (1.005-1.030); Urine pH 5.5 (5.0-7.0)
[2021-02-08 23:03] LABS: Platelet Estimate DECR; White Blood Cell Scan OK (OK)
[2021-02-08 23:04] LABS: Anisocytosis 2+; Blood Morphology Comment NOTED (NOT SEEN); Burr Cells 1+; Elliptocytes 1+; Ovalocytes 2+
[2021-02-08 23:20] LABS: SARS-COV-2 RT PCR NEGATIVE (NEGATIVE)
[2021-02-08 23:46] LABS: Urine Bacteria 20-50 /HPF (NONE SEEN); Urine Mucus 1+ /HPF (NONE SEEN); Urine RBC >50 /HPF (NONE SEEN); Urine Yeast FEW (NONE SEEN)
[2021-02-09] MEDS ORDERED: CIPROFLOXACIN 400mg IV 400 MG/200 ML BAG IV ONE (00:50)
--- NOTE | 2021-02-09 00:54 | ER ---
Nurse's Notes [facility] Name: Valente Armas Age: 89 yrs Sex: Male : 1930 Arrival Date: 02/08/2021 Time: 20:24 Bed 15 Private MD: Diagnosis: Urinary tract infection Presentation: 02/08 20:43 Chief complaint: Patient states: fever, loss of appetite that began 1 week ago, reports lp1 diarrhea, nausea that began 2 days ago and worsening generalized weakness; denies vomiting; PCP prescribed Cefuroxime 250mg PO BID. Coronavirus screen: chills, diarrhea, fatigue, fever. Ebola Screen: No symptoms or risks identified at this time. Initial Sepsis Screen: Does the patient meet any 2 criteria? No. Patient's initial sepsis screen is negative. Does the patient have a suspected source of infection? No. Patient's initial sepsis screen is negative. Risk Assessment: Do you want to hurt yourself or someone else? Patient reports no desire to harm self or others. Onset of symptoms was February 08, 2021. 20:43 Method Of Arrival: Wheelchair lp1 20:43 Acuity: BEBETO 3 lp1 Historical: - Allergies: 20:46 No Known Allergies; lp1 - Home Meds: 20:46 Xarelto 15 mg oral tab 1 tab once daily [Active]; esomeprazole magnesium 10 mg oral lp1 grps daily [Active]; simvastatin 40 mg Oral tab 1 tab once daily [Active]; Novolog 100 unit/mL Sub-Q soln [Active]; Basaglar KwikPen U-100 Insulin 100 unit/mL (3 mL) subcutaneous inpn daily [Active]; amiodarone 100 mg Oral tab 1 tab once daily [Active]; valsartan 160 mg oral tab once daily [Active]; Zetia 10 mg Oral tab 1 tab once daily [Active]; amlodipine 2.5 mg tab 1 tab once daily [Active]; - PMHx: 20:46 Atrial Fib; bowel obstruction; CHF; Diabetes - IDDM; GERD; Hyperlipidemia; lp1 Hypertension; macular degeneration; - Immunization history:: Adult Immunizations up to date, Client reports receiving the 2nd dose of the Covid vaccine. - Social history:: Smoking status: Patient denies any tobacco usage or history of. Screenin:30 Abuse screen: Denies threats or abuse. Denies injuries from another. Nutritional bs2 screening: No deficits noted. Tuberculosis screening: No symptoms or risk factors identified. Fall Risk None identified. Assessment: 23:40 General: Appears uncomfortable, slender, Behavior is calm, cooperative, appropriate for bs2 age. Pain: Denies pain. GI: Abdomen is flat, Bowel sounds present X 4 quads. Abd is soft and non tender X 4 quads. Reports diarrhea, nausea, Patient currently denies abdominal pain. : Urine is urine is dark pt attempted to urinate and was only able to produce about. Vital Signs: 20:43 BP 137 / 65; Pulse 66; Resp 18; Temp 99.9(O); Pulse Ox 98% on R/A; Weight 68.95 kg (R); lp1 Height 5 ft. 9 in. (175.26 cm); Pain 0/10; 22:00 BP 137 / 75; Pulse 85; Resp 16; Pulse Ox 100% on R/A; Pain 0/10; bs2 23:00 BP 148 / 69; Pulse 97; Resp 16; Pulse Ox 100% on R/A; Pain 0/10; bs2 02/09 00:00 BP 118 / 82; Pulse 87; Resp 18; Pulse Ox 100% on R/A; Pain 0/10; bs2 01:00 BP 139 / 65; Pulse 78; Resp 18; Temp 98.8; Pulse Ox 100% ; Pain 0/10; bs2 02/08 20:43 Body Mass Index 22.45 (68.95 kg, 175.26 cm) lp1 ED Course: 02/08 20:24 Patient arrived in ED. bp1 20:30 Patient has correct armband on for positive identification. Placed in gown. Bed in low bs2 position. Call light in reach. Side rails up X2. Adult w/ patient. groundwater monitoring technician on. Pulse ox on. NIBP on. Door closed. Noise minimized. Lights dimmed. Warm blanket given. Pillow given. 20:39 Matthew Coyle MD is Attending Physician. pkl 20:45 Triage completed. lp1 20:45 Arm band placed on. lp1 21:26 Litzy Rueda, RN is Primary Nurse. bs2 21:37 XRAY Chest (1 view) In Process Unspecified. EDMS 22:16 LFT's Sent. bs2 22:16 Blood Culture Sent. bs2 22:16 Blood Culture Adult (2) Sent. bs2 22:17 COVID-19/FLU A+B (Document "Date of Onset" if Symptomatic) Sent. bs2 22:17 Liver (Hepatic) Function Sent. bs2 22:17 Basic Metabolic Panel Sent. bs2 22:17 CBC with Automated Diff Sent. bs2 22:17 Lactate Sent. bs2 22:17 Stool Culture Sent. bs2 22:17 COVID-19/FLU A+B Sent. bs2 22:17 Basic Metabolic Panel Sent. bs2 22:17 CBC with Diff Sent. bs2 22:18 Magnesium Sent. bs2 22:18 NT PRO-BNP Sent. bs2 22:18 PT-INR Sent. bs2 22:18 Troponin (emerg Dept Use Only) Sent. bs2 23:53 CT Abd/Pelvis - IV Contrast Only In Process Unspecified. EDMS 02/09 01:40 No provider procedures requiring assistance completed. bs2 02:10 IV discontinued, intact, bleeding controlled, No redness/swelling at site. bs2 02:16 Urine Culture Sent. bs2 Administered Medications: 02/08 23:02 Drug: NS 0.9% 500 ml Route: IV; Rate: bolus; Site: right forearm; bs2 02/09 02:16 Follow up: IV Status: Completed infusion; IV Intake: 500ml bs2 02/08 23:02 Drug: NS 0.9% 1000 ml Route: IV; Rate: 100 ml/hr; Site: right forearm; bs2 02/09 02:15 Follow up: IV Status: Completed infusion; IV Intake: 200ml bs2 02/08 23:03 Drug: Zofran (Ondansetron) 4 mg Route: IVP; Site: right forearm; bs2 02/09 02:16 Follow up: Response: No adverse reaction bs2 02/08 23:03 Drug: Tylenol 650 mg Route: PO; bs2 02/09 02:16 Follow up: Response: No adverse reaction bs2 01:00 Drug: Cipro (ciprofloxacin) 400 mg Volume: 200 ml; Route: IVPB; Infused Over: 60 mins; bs2 Site: right forearm; 02:00 Follow up: IV Status: Completed infusion bs2 Intake: 02:15 IV: 200ml; Total: 200ml. bs2 02:16 IV: 500ml; Total: 700ml. bs2 Outcome: 00:54 Discharge ordered by . kevin 02:10 Discharged to home ambulatory, with family. bs2 02:10 Condition: improved 02:10 Discharge instructions given to patient, family, Instructed on discharge instructions, follow up and referral plans. medication usage, Demonstrated understanding of instructions, follow-up care, medications, Prescriptions given X 1. 02:18 Patient left the ED. bs2 Addendum: 02/11/2021 11:30 Addendum: Culture Results: Positive urine culture. Bacteria is resistant to, has a a5 intermediate sensitivity, or is not tested against prescribed antibiotics. Report given to MODE for further evaluation and then to operations professional for follow up with patient. Phone call Attempt #1 left voicemail. Signatures: Dispatcher [employer] EDMS Matthew Coyle MD MD pkl Zahra Arcos, RN RN aa5 Jo Ann Louis RN RN lp1 Alexandra Hoover Bridget, RN RN bs2
--- NOTE | 2021-02-09 00:54 | EDPHYS ---
Physician Documentation [facility] Name: Valente Armas Age: 89 yrs Sex: Male : 1930 Arrival Date: 02/08/2021 Time: 20:24 Bed 15 Private MD: ED Physician Matthew Coyle HPI: 02/08 21:02 This 89 yrs old Male presents to ER via Wheelchair with complaints of General pkl Weakness, Vomiting/Diarrhea. 21:02 The patient presents to the emergency department with nausea, that is moderate. Onset: pkl The symptoms/episode began/occurred 2 day(s) ago. Associated signs and symptoms: Pertinent positives: diarrhea, fever, loss of appetite . Historical: - Allergies: 20:46 No Known Allergies; lp1 - Home Meds: 20:46 Xarelto 15 mg oral tab 1 tab once daily [Active]; esomeprazole magnesium 10 mg oral lp1 grps daily [Active]; simvastatin 40 mg Oral tab 1 tab once daily [Active]; Novolog 100 unit/mL Sub-Q soln [Active]; Basaglar KwikPen U-100 Insulin 100 unit/mL (3 mL) subcutaneous inpn daily [Active]; amiodarone 100 mg Oral tab 1 tab once daily [Active]; valsartan 160 mg oral tab once daily [Active]; Zetia 10 mg Oral tab 1 tab once daily [Active]; amlodipine 2.5 mg tab 1 tab once daily [Active]; - PMHx: 20:46 Atrial Fib; bowel obstruction; CHF; Diabetes - IDDM; GERD; Hyperlipidemia; lp1 Hypertension; macular degeneration; - Immunization history:: Adult Immunizations up to date, Client reports receiving the 2nd dose of the Covid vaccine. - Social history:: Smoking status: Patient denies any tobacco usage or history of. ROS: 21:02 Eyes: Negative for injury, pain, redness, and discharge, ENT: Negative for injury, pkl pain, and discharge, Neck: Negative for injury, pain, and swelling, Cardiovascular: Negative for chest pain, palpitations, and edema. 21:02 Respiratory: Negative for cough, shortness of breath. 21:02 Abdomen/GI: Positive for nausea, diarrhea. 21:02 Back: Negative for injury or acute deformity, acute changes. 21:02 : Negative for urinary symptoms. 21:02 MS/extremity: Negative for acute changes. 21:02 Skin: Negative for rash. 21:02 Neuro: Negative for altered mental status, loss of consciousness. Exam: 21:02 Head/Face: Normocephalic, atraumatic. Eyes: Pupils equal round and reactive to light, pkl extra-ocular motions intact. Lids and lashes normal. Conjunctiva and sclera are non-icteric and not injected. Cornea within normal limits. Periorbital areas with no swelling, redness, or edema. ENT: Nares patent. No nasal discharge, no septal abnormalities noted. Tympanic membranes are normal and external auditory canals are clear. Oropharynx with no redness, swelling, or masses, exudates, or evidence of obstruction, uvula midline. Mucous membranes moist. Neck: Trachea midline, no thyromegaly or masses palpated, and no cervical lymphadenopathy. Supple, full range of motion without nuchal rigidity, or vertebral point tenderness. No Meningismus. Chest/axilla: Normal chest wall appearance and motion. Nontender with no deformity. No lesions are appreciated. Cardiovascular: Regular rate and rhythm with a normal S1 and S2. No gallops, murmurs, or rubs. Normal PMI, no JVD. No pulse deficits. Respiratory: Lungs have equal breath sounds bilaterally, clear to auscultation and percussion. No rales, rhonchi or wheezes noted. No increased work of breathing, no retractions or nasal flaring. 21:02 Abdomen/GI: Bowel sounds: normal, Palpation: soft, mild abdominal tenderness, in the right upper quadrant and right lower quadrant. 21:02 Back: Exam negative for acute changes. 21:02 : Exam negative for acute changes. 21:02 Musculoskeletal/extremity: Exam is negative for acute changes. 21:02 Skin: Exam negative for rash. 21:02 Neuro: Orientation: is normal, Mentation: is normal, Cranial nerves: grossly normal, Motor: is normal. Vital Signs: 20:43 BP 137 / 65; Pulse 66; Resp 18; Temp 99.9(O); Pulse Ox 98% on R/A; Weight 68.95 kg (R); lp1 Height 5 ft. 9 in. (175.26 cm); Pain 0/10; 22:00 BP 137 / 75; Pulse 85; Resp 16; Pulse Ox 100% on R/A; Pain 0/10; bs2 23:00 BP 148 / 69; Pulse 97; Resp 16; Pulse Ox 100% on R/A; Pain 0/10; bs2 02/09 00:00 BP 118 / 82; Pulse 87; Resp 18; Pulse Ox 100% on R/A; Pain 0/10; bs2 01:00 BP 139 / 65; Pulse 78; Resp 18; Temp 98.8; Pulse Ox 100% ; Pain 0/10; bs2 02/08 20:43 Body Mass Index 22.45 (68.95 kg, 175.26 cm) lp1 MDM: 02/08 20:39 Patient medically screened. pkl 02/09 00:50 Data reviewed: vital signs, nurses notes, lab test result(s), EKG, radiologic studies, pkl CT scan, plain films. ED course: Patient feeling better. Discussed lab and imaging studies with patient and son. Advised to follow up with his PCP ( Dr. Serra ) in 2 to 3 days. To return if necessary. Patient and son understood instructions. 02/08 20:57 Order name: Basic Metabolic Panel pkl 02/08 20:57 Order name: CBC with Diff pkl 02/08 20:57 Order name: LFT's pkl 02/08 20:57 Order name: Magnesium; Complete Time: 22:52 pkl 02/08 20:57 Order name: NT PRO-BNP; Complete Time: 22:52 pkl 02/08 20:57 Order name: PT-INR; Complete Time: 22:41 pkl 02/08 20:57 Order name: Troponin (emerg Dept Use Only); Complete Time: 22:52 pkl 02/08 20:58 Order name: Basic Metabolic Panel; Complete Time: 22:52 EDMS 02/08 20:58 Order name: CBC with Automated Diff; Complete Time: 23:44 EDMS 02/08 20:58 Order name: Liver (Hepatic) Function; Complete Time: 22:52 EDMS 02/08 21:00 Order name: COVID-19/FLU A+B (Document "Date of Onset" if Symptomatic) pkl 02/08 21:00 Order name: Blood Culture Adult (2) pkl 02/08 21:00 Order name: Lactate; Complete Time: 22:52 pkl 02/08 20:57 Order name: XRAY Chest (1 view); Complete Time: 22:28 [facility] 02/08 20:57 Order name: EKG; Complete Time: 20:59 [facility] 02/08 20:57 Order name: Cardiac monitoring; Complete Time: 22:17 [facility] 02/08 20:57 Order name: EKG - Nurse/Tech; Complete Time: 22:17 [facility] 02/08 21:01 Order name: COVID-19/FLU A+B; Complete Time: 23:44 [facility] 02/08 21:01 Order name: Blood Culture [facility] 02/08 22:35 Order name: CBC Smear Scan; Complete Time: 23:44 [facility] 02/08 22:51 Order name: Urine Dipstick-Ancillary; Complete Time: 23:01 [facility] 02/08 22:52 Order name: Urine Culture [facility] 02/08 22:52 Order name: Urine Microscopic Only; Complete Time: 00:44 [facility] 02/08 22:53 Order name: CT Abd/Pelvis - IV Contrast Only [facility] 02/08 20:57 Order name: IV Saline Lock; Complete Time: 22:17 [facility] 02/08 20:57 Order name: Labs collected and sent; Complete Time: 22:18 [facility] 02/08 20:57 Order name: O2 Per Protocol; Complete Time: 22:18 [facility] 02/08 20:57 Order name: O2 Sat Monitoring; Complete Time: 22:18 [facility] 02/08 20:57 Order name: Urine Dipstick-Ancillary (obtain specimen); Complete Time: 23:03 [facility] Administered Medications: 02/08 23:02 Drug: NS 0.9% 500 ml Route: IV; Rate: bolus; Site: right forearm; [facility] 02/09 02:16 Follow up: IV Status: Completed infusion; IV Intake: 500ml [facility] 02/08 23:02 Drug: NS 0.9% 1000 ml Route: IV; Rate: 100 ml/hr; Site: right forearm; [facility] 02/09 02:15 Follow up: IV Status: Completed infusion; IV Intake: 200ml [facility] 02/08 23:03 Drug: Zofran (Ondansetron) 4 mg Route: IVP; Site: right forearm; [facility] 02/09 02:16 Follow up: Response: No adverse reaction [facility] 02/08 23:03 Drug: Tylenol 650 mg Route: PO; bs2 02/09 02:16 Follow up: Response: No adverse reaction bs2 01:00 Drug: Cipro (ciprofloxacin) 400 mg Volume: 200 ml; Route: IVPB; Infused Over: 60 mins; bs2 Site: right forearm; 02:00 Follow up: IV Status: Completed infusion bs2 Disposition Summary: 02/09/21 00:54 Discharge Ordered Location: Home pkl Problem: new pkl Symptoms: have improved pkl Condition: Stable pkl Diagnosis - Urinary tract infection pkl Followup: pkl - With: Private Physician - When: 2 - 3 days - Reason: Re-evaluation by your physician Discharge Instructions: - Discharge Summary Sheet pkl Forms: - Medication Reconciliation Form pkl - Thank You Letter pkl - Antibiotic Education pkl - Prescription Opioid Use pkl Prescriptions: - Cipro 500 mg Oral Tablet - take 1 tablet by ORAL route every 12 hours for 7 days; 14 tablet; Refills: 0, pkl Product Selection Permitted Signatures: Dispatcher [employer] Matthew Purvis MD MD pkl Jo Ann Louis, RN RN lp1 Litzy Rueda RN RN bs2
[2021-02-09 02:31] VITALS: O2SAT 100
[2021-02-09 02:36] VITALS: BP 139/65; TEMP 98.8
--- NOTE | 2021-02-09 19:44 | RAD REPORT ---
EXAM DESCRIPTION: CT - Abdomen Pelvis W Contrast - 02/09/2021 5:56 am CLINICAL HISTORY: 89 years, Male, ABD PAIN COMPARISON: None. TECHNIQUE: Contrast-enhanced images of the abdomen and pelvis were performed utilizing 5 mm slice th ickness at 5 mm interval reconstruction from the lung bases to the ischial tuberosities after the adm inistration of 100 cc of Omnipaque 350 at the rate of 3.0 cc/sec. In addition multiplanar reformats in the coronal and sagittal plane were obtained and reviewed. This exam was performed according to our departmental dose-optimization protocol, which includes auto mated exposure control, adjustment of the mA and/or kV according to patient size and/or use of iterat kristen reconstruction technique. FINDINGS: The lung bases demonstrate to be clear. There is coronary megaly. There is a pacemaker in place sternotomy wires suggest perhaps previous CABG. There is calcific plaque within the left hemidi aphragm The liver, pancreas, spleen and adrenal glands demonstrate to be unremarkable, no focal lesions are n oted. Surgical clips within the gallbladder fossa correspond to previous cholecystectomy. There has b een interval placement of a biliary stent no significant biliary duct dilatation. The kidneys demonstrate normal uptake of contrast media. There is a left lower pole calculus measurin g 4.7 mm on image 32. There is no evidence for hydronephrosis in either kidney. There is a exophytic lower pole right renal cyst measuring 1.5 cm on image 35. Grossly the unopacified stomach, small bowel and large bowel demonstrate to be within normal limits. There is no evidence for significant bowel dilatation. There is some surgical suture row within the small bowel left lower quadrant area. There is a anterior abdominal wall umbilical wall hernia conta ining large bowel with no evidence for incarceration. There is diverticulosis within the sigmoid colo n. There is surgical clips within the anterior abdomen perhaps suggesting the possibility of omentect hilario and/or from small bowel surgery. The urinary bladder was partially distended with the diffuse circumferential wall thickening. Questio nable asymmetric wall thickening is suggested within the left lateral wall, this is best demonstrated on axial image [id number] and coronal image 64. The prostate gland is prominent perhaps related to BPH. The aorta demonstrate atherosclerotic disease. There is no retroperitoneal lymphadenopathy. Ther e is no evidence for ascites/or significant abnormal fluid collections. The rest of the soft tissue a nd bony structures are within normal limits. IMPRESSION: Questionable asymmetric wall thickening is suggested within the left lateral wall of the urinary bladder. Recommend further evaluation with cystoscopy. Status post cholecystectomy. Interval placement of a biliary stent no significant biliary duct dilatation. 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 Sigmoid diverticulosis without evidence of acute diverticulitis. Left nephrolithiasis. Cardiomegaly with pacemaker in place sternotomy wires suggest perhaps previous CABG. Prominent prostate gland perhaps related to BPH. Electronically signed by: Parth Marin MD 02/09/2021 12:34 AM [employer]ING TECH Due to temporary technical issues with the PACS/Fluency reporting system, reports are being signed by the in house radiologists without review as a courtesy to insure prompt reporting. The interpreting radiologist is fully responsible for the content of the report.
--- OUTSIDE RECORDS SUMMARY | 2021-02-09 23:18 | XMS REPORT | Continuity of Care Document ---
:[address] [facility] [place], [place] t Address 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 r mellitus mellitus 10-03 Colleg e (HCCode) (HCCode) 00:00: of 00 Medicin e Hypoglycem Hypoglycem Disease Active [facility] ia nv 10-03 [facility] associated associated 00:00: of with with 00 Medicin diabetes diabetes e (HCCode) (HCCode) Incisional Incisional Disease Active Overview : [facility] hernia hernia 10-31 [facility] 00:00: g of this of 00 note Medicin might be e different from the original. Patient has developed a large incisiona l abdominal hernia. He is wearing an abdominal binder. He will make appointme nt to see his surgeon in near future. This will require surgical repair as soon as feasible. Atrial Atrial Disease Active Overview: [facility] fibrillati fibrillati 05-01 [facility] on on 00:00: g of this of (HCCode) (HCCode) 00 note Medici n might be e different from the original. He had AF that required coumadin and then he had GI bleed.Cur rently HR is slow but irregular Meds:1. Toprol XL2. Amiodaron e 200 mg/d3. ASAFollow ed by Dr. Brandon Chronic Chronic Disease Active Overview: [facility] or renal renal 10-26 [facility] insufficie insufficie 00:00: g of this of ncy ncy 00 note Medicin might be e different from the original. Cr has decreased from 1.[address] [facility] Cr. 1.33 (1.25 in 2011) Hypertensi Hypertensi Disease Active Overview : [facility] on on 04-04 [facility] 00:00: g of this of note Medicin might be e different from the original. [facility] 08/2013 A1c 6.5 % (6.1% in 2011) Cr. 1.33 (1.25 in 2012) Med: [place] 10/320; hctz 25 mg/d;Topr ol XL 50; Lasix 40 - good BP today Dyslipidem Dyslipidem Disease Active Overview : [facility] ia 12-08 [facility] 00:00: g of this of note Medicin might be e different from the original. [facility] 08/2013 Total chol: 135 LDL 63 HDL: 57 T TSH: 1.56 Med: Advicor 500/20 bid; no flush DIABETES DIABETES Disease Active Overview: [facility] MELLITUS, MELLITUS, Formattin Salvatore ollege WITH WITH g of this of VASCULAR VASCULAR note Medici n COMPLICATI COMPLICATI might be e ONS ONS different from the original. [facility] 08/2013 A1c 6.5 % (6.1% in 2012) Cr. 1.33 (1.25 in 2012) Assessmen t/Plan DM2: - good A1c Continue Lantus Change Novolog to plus correctio n dose starting at 1 unit for each 50 mg (above 100 mg/dl); -if glucose is <130 at bedtime: snack -If glucose is <100: a sandwich -if you are not low, and still want a mid afternoon snack, please cover with correctio n. 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 h/o CAD Med: Ran[place]a, amiodaron e No angina or SOB GERD GERD Disease Active Overview: [facility] g of this of note Medicin might be e different from the original. Med: Nexium 20 q d ERECTILE ERECTILE Disease Active [facility] DYSFUNCTIO DYSFUNCTIO Co llege N N of Medicin e Allergies, Adverse Reactions, Alerts Allergy Allergy Status Severity Reaction(s) Onset Inactive Treating Comm ents Source Name Type Date Date Clinician No Known DA Active [facility] Allergie 04-27 Clear s 00:00: Kapoor 00 [facility] NO KNOWN Allergy Active [facility] ALLERGIE S Social History Social Habit Start Date Stop Date Quantity Comments Source Alcohol Comment Alcoholic [facility] Drinks/day: yes of Medici ne Exposure to Not sure [facility] castro SARS-CoV-2 of Medicine (event) Alcohol intake 2020-08-21 2020-08-21 Current drinker [facility] 00:00:00 00:00:00 of alcohol of Medicine (finding) Sex Ass[birth year] At [birth year] M [facility] 00:00:00 00:00:00 of Medicine Smoking Status Start Date Stop Date Source Never smoker [facility] o f Medicine Medications Ordered Filled Start Stop Current Ordering Indication Dosage Frequency Signature Comments Components Source Medication Medication Date Date Medication? Clinician (SIG) Name Name amiodarone Yes 100mg Take 100 [facility] (PACERONE) 5-25 mg by [facility] 100 MG 16:36: mouth of tablet 47 daily. Medicin e valsartan Yes 320mg Take 320 [place] [facility] (DIOVAN) 5-25 mg by [facility] 320 MG 16:36: mouth of tablet 47 daily. Medicin e folic acid Yes 1mg Take 1 mg [facility] (FOLVITE) 1 5-25 by mouth [facility] MG tablet 16:36: daily. of 47 Medicin e Multiple Yes Take by [place] Vitamins-Mi 5-25 mouth. Colleg e nerals 16:36: of (OCUVITE 47 Medicin OR) e Coenzyme Yes 100mg Take 100 [facility] Q10 5-25 mg by [place] (COQ-10) 16:36: mouth. of 100 MG CAPS 47 Medicin e Insulin Yes [id number] 32U 32 Units [facility] Glargine 5-25 daily. [facility] ([facility] Please of CRISTINA) 00 dispense Medicin 100 UNIT/ML 90 days' e SOPN supply Continuous Yes [id number] 1{each} 1 Each [facility] Blood Gluc 5-25 every 14 Colle ge Sensor 00:00: days. of (FREESTYLE 00 Medicin HE 14 e DAY SENSOR) MISC Insulin 202- No [id number] 28U 28 Units [facility] Glargine 5-25 05-25 daily. [facility] ([facility] 00:00: 00:00 Please of CRISTINA) 00 :00 dispense Medicin 100 UNIT/ML 90 days' e SOPN supply Continuous 202- No [id number] 1{each} 1 Each [facility] Blood Gluc 4-19 05-25 every 14 [facility] Sensor 00:00: 00:00 days. of (FREESTYLE 00 :00 Medicin HE 14 e DAY SENSOR) MISC Glucagon Yes [id number] 1{each} 1 Each by [facility] (BAQSIMI 4-13 Nasal [facility] TWO PACK) 3 00:00: route as of MG/DOSE 00 needed Medicin POWD (only for e emergency use for low blood sugar reaction). meclizine Yes TAKE 1 [facility] (ANTIVERT) 4-05 TABLET BY [facility] 25 MG 00:00: MOUTH of tablet 00 EVERYDAY Medicin AT BEDTIME e gabapentin 2019-03 Yes 100mg Take 100 ylor (NEURONTIN) 2-01 mg by [facility] 100 MG 00:00: mouth. of capsule 00 Medicin e amlodipine 2019-03 Yes TAKE 1 [facility] (NORVASC) 1-19 TABLET BY [facility] ge 2.5 MG 00:00: MOUTH of tablet 00 EVERY DAY Medicin e Continuous 2019-03 Yes [id number] 1{each} 1 Each [facility] Blood Gluc 1-09 daily. [facility] [employer] 00:00: of (FREESTYLE 00 Medicin HE 14 e DAY READER) JEFFERY simvastatin Yes TAKE 1 [place] (ZOCOR) 40 9-14 TABLET BY [facility] ege MG tablet 00:00: MOUTH of 00 EVERY DAY Medicin e Insulin Pen Yes [id number] Use as [facility] Needle 31G 5-27 directed [facility] ge X 5 MM [facility] 00:00: DC Code: E of 00 11.9 Medicin e Glucagon, Yes [id number] 1mg Inject 1 [facility] rDNA, 4-27 mg as [facility] (GLUCAGON 00:00: directed of EMERGENCY) 00 as needed. Med icin 1 MG KIT For low e blood sugar reaction Insulin 2020- No [id number] 7U 7-9 Units [facility] Aspart 4-27 05-25 3 times College (NOVOLOG 00:00: 00:00 daily of FLEXPEN) 00 :00 (before Medicin 100 UNIT/ML meals). e SOPN Please dispense 90 days' supply Insulin 2020- No [id number] 30U 30 Units [facility] Glargine 4-27 05-25 daily. [facility] ([facility] 00:00: 00:00 Please of KWIKPEN) 00 :00 dispense Medicin 100 UNIT/ML 90 days' e SOPN supply XARELTO 15 2018-03 Yes TAKE 1 [facility] MG TABS 0-06 TABLET BY [facility] 00:00: MOUTH of 00 EVERY DAY Medicin e amiodarone Yes 100mg Take 100 [facility] (PACERONE) 8-15 mg by [facility] 100 MG 15:23: mouth of tablet 06 daily. Medicin e valsartan Yes 320mg Take 320 [place] [facility] (DIOVAN) 8-15 mg by [facility] 320 MG 15:23: mouth of tablet 06 daily. Medicin e Apixaban Yes 1{tbl} Take 1 Tab [facility] (ELIQUIS) 8-15 by mouth Colleg e 2.5 MG TABS 15:23: daily. of 06 Medicin e diphenhydrA Yes 25mg Take 25 mg [facility] MINE 8-15 by mouth [facility] (BENADRYL) 15:23: at of 25 MG 06 bedtime. Medicin capsule e folic acid Yes 1mg Take 1 mg [facility] (FOLVITE) 1 8-15 by mouth [facility] MG tablet 15:23: daily. of 06 Medicin e Multiple Yes Take by [facility] Vitamins-Mi 8-15 mouth. Colleg e nerals 15:23: of (OCUVITE 06 Medicin OR) e Ursodiol Yes Take by [facility] 500 MG TABS 8-15 mouth. Colleg e 15:22: of 15 Medicin e Continuous Yes [id number] 1{each} 1 Each [facility] Blood Gluc 8-15 daily. [employer] Herb [employer]er 00:00: of (FREESTYLE 00 Medicin EH 14 e DAY READER) JEFFERY Continuous Yes [id number] 1{each} 1 Each [facility] Blood Gluc 8-15 every 14 Colle ge Sensor 00:00: days. of (FREESTYLE 00 Medicin HE 14 e DAY SENSOR) MISC Continuous 2019- No [id number] 1{each} 1 Each [facility] Blood Gluc 8-15 08-15 daily. Colleg e Herb Grower 00:00: 00:00 of (FREESTYLE 00 :00 Medicin HE 14 e DAY READER) JEFFERY Continuous 2019- No [id number] 1{each} 1 Each [facility] Blood Gluc 8-15 08-15 every 14 [facility] Sensor 00:00: 00:00 days. of (FREESTYLE 00 :00 Medicin HE 14 e DAY SENSOR) [facility] NOVOLOG 2019- No [id number] INJECT Ba [facility]haile FLEXPEN 100 7- 08-15 UNDER THE Co llege UNIT/ML 00:00: 00:00 SKIN 7 of SOPN 00 :00 UNITS 3 Medicin TIMES A e DAY (WITH MEALS) Glucose 2019- No CHECK [facility] Blood 7- 08-15 GLUCOSE 4 College Strips (ONE 00:00: 00:00 TIMES of TOUCH ULTRA 00 :00 DAILY. DX: Me dicin TEST) E11.9 e Insulin Yes [id number] 30U 30 Units [facility] Glargine 7-23 daily. College (BASAGLAR 00:00: of KWIKPEN) 00 Medicin 100 UNIT/ML e SOPN ezetimibe Yes TAKE 1 [facility] (ZETIA) 10 7-06 TABLET BY [facility] MG tablet 00:00: MOUTH of 00 EVERY DAY Medicin e ezetimibe Yes TAKE 1 [facility] (ZETIA) 10 7-06 TABLET BY [facility] MG tablet 00:00: MOUTH of 00 EVERY DAY Medicin e Insulin Yes [id number] 7U 7-9 Units [facility] Aspart 5-21 3 times College (NOVOLOG 00:00: daily of FLEXPEN) 00 (before Medicin 100 UNIT/ML meals). e SOPN Glucagon, Yes [id number] 1mg Inject 1 [facility] rDNA, 5-21 mg as College (GLUCAGON 00:00: directed of EMERGENCY) 00 as needed. Med icin 1 MG KIT For low e blood sugar reaction Glucometer Yes [id number] Check [facility] 5-21 blood College 00:00: sugars 4 of 00 times Medicin daily; Dx e E11.9 Glucometer Yes [id number] Check [facility] 5-21 blood College 00:00: sugars 4 of 00 times Medicin daily; Dx e E11.9 furosemide Yes [id number] 40mg Take 1 Tab [facility] (LASIX) 40 9-24 by mouth Colle ge MG tablet 00:00: every of 00 Thursday, Medicin Thursday, e Thursday. esomeprazol 2012-03 Yes [id number] 20mg Take 1 Cap [facility] e (NEXIUM) 2-31 by mouth Colle ge 20 MG 00:00: every of capsule 00 morning Medicin (before e breakfast) . metoprolol 2012-03 Yes [id number] 25mg Take 1 Tab [facility] (TOPROL XL) 2-31 by mouth [facility] 25 MG XL 00:00: daily. of tablet 00 Medicin e esomeprazol 2012-03 Yes [id number] 20mg Take 1 Cap [facility] e (NEXIUM) 2-31 by mouth Colle ge 20 MG 00:00: every of capsule 00 morning Medicin (before e breakfast) . MULTIVITAMI Yes 1{tbl} Take 1 Tab [facility] N PO 2-01 by mouth College 00:00: daily. of 00 Medicin e MULTIVITAMI Yes 1{tbl} Take 1 Tab [facility] N PO 2-01 by mouth College 00:00: daily. of Medicin e Immunizations Ordered Immunization Filled Immunization Date Status Commen ts Source Name Name Influenza (whole) 2012-12-24 Completed [facility] 00:00:00 of Medicine Influenza (whole) 2012-12-24 Completed [facility] 00:00:00 of Medicine Pneumococcal 2010-01-28 Completed [facility] ge Polysaccharide 00:00:00 of Medicin e Pneumococcal 2010-01-28 Completed [facility] ge Polysaccharide 00:00:00 of Medicin e Vital Signs Vital Name Observation Time Observation Value Comments Source HEIGHT 2020-03-06 05:51:00 172.7 cm WEIGHT 2020-03-06 05:51:00 70.171 kg HEIGHT 2020-03-06 05:51:00 172.7 cm WEIGHT 2020-03-06 05:51:00 70.171 kg Body weight 2020-08-21 21:29:[address] [facility] BMI 2020-08-21 21:29:00 25.00 kg/m2 [facility] Systolic blood 2020-08-21 21:29:00 126 mm[Hg] [facility] pressure Medicine Diastolic blood 2020-08-21 21:29:00 66 mm[Hg] [facility] Medicine Heart rate 2020-08-21 21:29:00 66 /min [facility] ol[facility] of Medicine Respiratory rate 2020-08-21 21:29:00 18 /min [facility] Body height 2020-08-21 21:29:00 172.7 cm [facility] of Medicine WEIGHT 2020-03-05 11:56:00 69.99 kg HEIGHT 2020-03-05 11:56:00 172.7 cm WEIGHT 2020-03-05 11:56:00 69.99 kg HEIGHT 2020-03-05 11:56:00 172.7 cm Systolic blood 2018-11-11 15:12:00 118 mm[Hg] [facility] pressure Medicine Diastolic blood 2018-11-11 15:12:00 62 mm[Hg] [facility] Medicine Heart rate 2018-11-11 15:12:00 50 /min [facility] of Medicine Body height 2018-11-11 15:12:00 172.7 cm [facility] Body weight 2018-11-11 15:12:00 72.122 kg [facility] BMI 2018-11-11 15:12:00 24.18 kg/m2 [facility] Systolic blood 2018-11-11 15:12:00 118 mm[Hg] [facility] pressure Medicine Diastolic blood 2018-11-11 15:12:00 62 mm[Hg] [facility] pressure Medicine Heart rate 2018-11-11 15:12:00 50 /min [facility] Body height 2018-11-11 15:12:00 172.7 cm [facility] Body weight 2018-11-11 15:12:00 72.122 kg [facility] BMI 2018-11-11 15:12:00 24.18 kg/m2 [facility] Procedures Procedure Date / Time Performed Performing Clinician Formerly [facility] e BASIC METABOLIC PANEL 2020-08-21 22:40:00 Dandre Baltazar [facility] LIPID PANEL 2020-08-21 22:40:00 Delaney Dandre [facility] T4 FREE 2020-08-21 22:40:00 Delaney [facility] TSH 2020-08-21 22:40:00 Delaney [facility] C-PEPTIDE 2020-08-21 22:40:00 Delaney [facility] NO MICRO URINE RECEIVED 2020-08-21 22:40:00 Delaney [facility] POCT HEMOGLOBIN A1C 2020-08-21 21:59:00 Delaney [facility] POCT HEMOGLOBIN A1C 2018-11-11 15:34:00 Aysha Van [facility] Plan of Care Planned Activity Planned Date Details Comments Source Future Scheduled 2020-08-28 TETANUS SHOT (ADULT) [facility] Test 12:51:40 [code = TETANUS SHOT of Medi cine (ADULT)] Future Scheduled 2020-08-28 ANNUAL DIABETIC [facility] C [facility]lege Test 12:51:40 RETINOPATHY of Medicine SCREENING [code = ANNUAL DIABETIC RETINOPATHY SCREENING] Future Scheduled 2020-08-28 ZOSTER VACCINE (1 of [facility] Test 12:51:40 2) [code = ZOSTER of Medicin e VACCINE (1 of 2)] Future Scheduled 2020-08-28 FALL SCREEN [code = [facility] Test 12:51:40 FALL SCREEN] of Medicine Future Scheduled 2020-08-28 MEDICARE AWV [facility] Test 12:51:40 (Initial) [code = of Medicin e MEDICARE AWV (Initial)] Future Scheduled 2020-08-28 FLU VACCINE > 6 [facility] C [facility]lege Test 12:51:40 MONTHS [code = FLU of Medici ne VACCINE > 6 MONTHS] Future Scheduled 2020-08-28 Hemoglobin A1c [facility] Test 12:51:40 measurement of Medicine (procedure) [code = 76300410] Future Scheduled 2020-08-28 Diabetic foot [facility] Col lege Test 12:51:40 examination of Medicine (regime/therapy) [code = 379938364] Future Scheduled 2020-08-21 MICROALBUMIN/CREAT Ordered: [facility] r [facility] Test 16:42:57 URINE RATIO [code = 08/21/2020 of Medic ine 9318-7] Future Scheduled MEDICARE AWV [code = [facility] Test MEDICARE AWV] of Medicine Future Scheduled TETANUS SHOT (ADULT) [place] [facility] Test [code = TETANUS SHOT of Medi cine (ADULT)] Future Scheduled ANNUAL DIABETIC [facility] C [facility] Test RETINOPATHY of Medicine SCREENING [code = ANNUAL DIABETIC RETINOPATHY SCREENING] Future Scheduled FALL SCREEN [code = [facility] Test FALL SCREEN] of Medicine Future Scheduled PREVNAR >= 65 [facility] Col lege Test (PCV13) [code = of Medicine PREVNAR >= 65 (PCV13)] Future Scheduled FLU VACCINE > 6 [facility] C [facility]lege Test MONTHS [code = FLU of Medici ne VACCINE > 6 MONTHS] Future Scheduled A1C TESTING EVERY 6 [facility] Test MONTHS [code = A1C of Medici ne TESTING EVERY 6 MONTHS] Future Scheduled Diabetic foot [facility] Col [facility]ge Test examination of Medicine (regime/therapy) [code = 620115230] Future Scheduled TSH [code = 26314-6] 1 Occurrences [facility] Test starting of Medicine 11/11/2018 until 11/25/2019 Future Scheduled T4 FREE [code = 1 Occurrences [facility] College Test 3024-7] starting of Medicine 11/11/2018 until 11/25/2019 Future Scheduled HEMOGLOBIN A1C [code 1 Occurrences [facility] Test = 4548-4] starting of Medicine 11/11/2018 until 11/25/2019 Future Scheduled MICROALBUMIN/CREAT 1 Occurrences [facility] or [facility] Test URINE RATIO [code = starting of Medic ine 9318-7] 11/11/2018 until 11/25/2019 Future Scheduled COMPREHENSIVE 1 Occurrences [facility] Test METABOLIC PANEL starting of Medicine [code = 38795-2] 11/11/2018 until 11/25/2019 Future Scheduled LIPID PANEL [code = 1 Occurrences [facility] College Test 25476-1] starting of Medicine 11/11/2018 until 11/11/2019 Encounters Start End Encounter Admission Attending Care Care Encounter Source Date/Time Date/Time Type Type Clinicians Facility Department ID 2021-01-04 Outpatient BEN OVALLE [facility] Surgery [id number] [facility] 18:46:04 2020-08-21 2020-08-22 Office Delaney JONES [id number] [facility] 16:06:55 08:49:15 Visit , Dandre AMBULATOR [id number] College Y [id number] [facility] miguel 310 e 2020-04-26 2020-04-26 Outpatient BEN GRAYSON [facility] [id number] [facility] 00:00:00 00:00:00 2020-03-05 2020-03-05 Outpatient IDALIA GONZALEZ [id number] [facility] 00:00:00 00:00:00 2019-12-06 2019-12-06 Outpatient BEN GRAYSON [id number] [facility] 00:00:00 00:00:00 2018-11-11 2018-11-11 Office Rehan [facility] [id number] [facility] 10:07:06 11:03:16 Visit Aysha AMBULATOR [id number] College Y 0.2.7.2.686 of [id number] [facility] 310 e 2018-11-11 2018-11-11 Office eRhan [facility] [id number] 10:07:06 11:03:16 Visit Aysha AMBULATOR [id number] Y [id number] Results Test Description Test Time Test Comments Results Result Comments Source TSH 2020-08-23 03:10:41 Test Item Value Reference Range Interpretation Comme nts THYROID STIMULATING HORMONE See_Comment Unless Otherwise Indicated, (test code = 19684-1) All Te sting Performed At: [facility], [address] [place] [address] Laboratory Dire ctor: Jey Figueroa M.D. CLIA Number [id number] [place]. [id number] [Auto mated message] The system which ge nerated this result transmitted ref erence range: 0.40 - 4.10 UIU/ML. Th e reference range was not used to int erpret this result as normal/abnormal . [facility] [id number] 03:10:41 Test Item Value Reference Range Interpretation Comments FREE T4 (test code = See_Comment Unless Otherwise 3024-7) Indicated, All Testing Performed At: [facility], [address] [place], [place] [address] Laboratory Dire ctor: Jey Figueroa M.D. CLIA Number [id number] [employer] Accreditation N o. [Automated mess age] The system which ge nerated this result transmit jillian reference range: 0.80 - 1 .90 NG/DL. The reference r arturo was not used to interpr et this result as jean marie l/abnormal. [facility][id number] 12:31:55 Test Item Value Reference Range Interpretation Comments C-PEPTIDE (test code See_Comment This Method has = 1985-11) been standardiz ed against the WHO International Reference Reage nt for C-peptide of hu man insulin for imm unoassay, IRP code 84/510, es tablished 1985, from t [employer] [employer] [place] [employer] iological Standards an d Control ([facility] Unless Otherwise Indic ated, All Testing Perform ed At: [facility], [address] [place] [address] Laboratory Dire ctor: Jey Figueroa M.D. CLIA Number [id number] Cap Accreditation N o. [Automated mess age] The system which ge nerated this result transmit jillian reference range: 1.1 - 4. 4 NG/ML. The reference range was not used to interpret th is result as normal/abnormal . [facility]INE [id number] 11:05:08 Test Item Value Reference Range Interpretation Comments NO MICRO URINE (NOTE) NOTE: Patien t urine was RECEIVED (test code = not pr ovided. Urine 9784) testing will be noted out if no urine specimen is received in an appropriate per iod of time. Unless Otherwise Indic ated, All Testing Perform ed At: [facility], [address] [place] [address] Laboratory Di kasey: Jey ferrari M.D. CLIA Number [id number] Cap Accreditati on No. [facility] METABOLIC [id number] 07:57:37 Test Item Value Reference Range Interpretation Comments GLUCOSE (test code = See_Comment H [Autom ated message] 2345-7) The system whic h generated this result transmitted ref erence range: 70 - 99 MG/DL. The reference r arturo was not used to interpret this result as normal/abnor mal. BLOOD UREA NITROGEN See_Comment [Automa jillian message] (test code = 3091-6) The s tem which generated this result transmitted ref erence range: 8 - 23 M G/DL. The reference r arturo was not used to interpret this result as normal/abnor mal. CREATININE (test code = See_Comment [Au tomated message] 2160-0) The system [employer] generated this result transmitted ref erence range: 0.80 - 1 .40 MG/DL. The refe rence range was not u sed to interpret this result as normal/abnor mal. EGFR AA (test code = See_Comment L [Autom ated message] 65694-6) The system [employer] generated this result transmitted ref erence range: >60 ML/MIN/1.73. Th e reference range was not used to int erpret this result as normal/abnormal . EGFR (test code = See_Comment L [Automate d message] 03516-0) The system [employer] generated this result transmitted ref erence range: >60 ML/MIN/1.73. Th e reference range was not used to int erpret this result as normal/abnormal . SODIUM (test code = See_Comment [Automa jillian message] 2951-2) The system [employer] generated this result transmitted ref erence range: 133 - 14 6 MEQ/L. The refe rence range was not u sed to interpret this result as normal/abnor mal. POTASSIUM (test code = See_Comment [Aut omated message] 4583-3) The system [employer] generated this result transmitted ref erence range: 3.5 - 5. 4 MEQ/L. The refe rence range was not u sed to interpret this result as normal/abnor mal. CHLORIDE (test code = See_Comment [Auto mated message] 0495-0) The system [employer] generated this result transmitted ref erence range: 95 - 107 MEQ/L. The reference r arturo was not used to interpret this result as normal/abnor mal. CO2 (test code = See_Comment [Automated message] 1962-8) The system Videolla generated this result transmitted ref erence range: 19 - 31 MEQ/L. The reference r arturo was not used to interpret this result as normal/abnor mal. CALCIUM (test code = See_Comment Unless 03229-8) Otherwise Indic ated, All Testing Per formed At: [facility], [address] [place] [address] Laboratory Dire ctor: Jey ferrari M.D. GERONIMO Num silke [id number] Cap Accreditation N o. [id number] [Auto mated message] The sy stem which generated this result transmit jillian reference range : 8.5 - 10.5 MG/DL. The reference range was not used to int erpret this result as normal/abnormal . Lab Interpretation Abnormal (test code = 12702-5) [facility] [id number] 07:57:37 Test Item Value Reference Range Interpretation Comments CHOLESTEROL (test code See_Comment [Aut omated message] = 2093-3) The system Videolla generated this result transmitted ref erence range: <200 MG/ DL. The reference range was not used to int erpret this result as normal/abnormal . TRIGLYCERIDES (test See_Comment [Automa jillian message] code = 2571-8) The system [employer] generated this result transmitted ref erence range: <150 MG/ DL. The reference range was not used to int erpret this result as normal/abnormal . HDL CHOLESTEROL (test See_Comment L [Auto mated message] code = 2085-9) The system [employer] generated this result transmitted ref erence range: >39 MG/D L. The reference range was not used to int erpret this result as normal/abnormal . LDL CHOLESTEROL See_Comment NOTE: CALCU LATED LDL CALCULATED (test code = [place] [address]-3) CHRISTOPHE-ANSARI METHOD WHICHINCLUDES ADJUSTABLE TRIGLYCERIDE:VL DL CHOLESTEROL RAT IO.THIS FACTOR VARIES B Y MEASURED TRIGLY CERIDE AND NON-HDLCHOL ESTEROL CONCENTRATIONS WITH INCREASED CALCU LATED LDL SEENIN HIGH ER TRIGLYCERIDE OR LOWER NON-HDL SPECIME NS. FOR MOREINFORMATION , SEE CLIENT ANNOUNCE MENT AT [email or web address] [Automated mess age] The system Videolla generated this result transmitted ref erence range: <100 MG/ DL. The reference range was not used to int erpret this result as normal/abnormal . LDL/HDL RATIO (test See_Comment Unless code = 85081-9) Otherwise In dicated, All Testing Per formed At: [facility], [address] [facility], [place] [address] Laboratory Dire ctor: Jey ferrari M.D. CLIA Num silke [id number] Cap Accreditation N o. [id number] [Auto mated message] The sy stem which generated this result transmit jillian reference range : <3.55 RATIO. The refe rence range was not u sed to interpret this result as normal/abnor mal. Lab Interpretation Abnormal (test code = 21454-0) [facility] [id number] 21:59:00 Test Item Value Reference Range Interpretation Comments HEMOGLOBIN A1C (test code = 4548-4) 7.5 % 4.0-5.6 A Lab Interpretation (test code = Abnormal 34157-2) [facility], 2 [id number] 12:44:00Reason for Exam:->R06.02[facility] : 1930 Sex: MFINAL REPORT TECHNIQUE: Frontal and lateral views of the chest. IND ICATION: 89-year-old man with shortness of breath. COMPARISON: Chest radiograph 03/06/2020. FINDINGS: LINES/TUBES/DEVICES: Unchanged implanted cardiac device in the soft tissues of the anterior left chest with an intact lead which terminates in the expected region of the right ventricle. LUNGS: Lungs are well inflated. No consolidation or pulmonary edema. Biapical pleural-parenchymal scarring. PLEURA: No pleural effusion or pneumothorax. Left pleural calcifications. HEART AND MEDIASTINUM: Cardiomediastinal silhouette is within normal limits. Atherosclerotic calcifications in the thoracic aorta. BONES AND SOFT TISSUES: No acute osseous abnormalities. Mild degenerative changes of the visualized spine. Intact median sternotomy wires. Soft tissues are unremarkable. IMPRESSION:No acute cardiopulmonary abnormalities. Signed: Vikas Chapa Verified Date/Time: 04/26/2020 12:44:31 RAD, CHEST, 1 VIEW, NON [id number] 11:59:00Reason for exam:->s/p PPM implantShould this be performed at the bedside?->Yes[facility] : 1930 Sex: MFINAL REPORT RAD, CHEST, 1 VIEW, NON DEPT INDICATION: s/p PPM implant COMPARISON: June 02, 2011 FINDINGS: Portable frontal view of the chest. IMPRESSION: Support Lines: None. Lungs and pleura: Interstitial congestion bilaterally. No effusion. No pneumothorax.Heart and mediastinum: Stable contours. Stable surgical changes. Single lead pacer is present.Additional fin dings: None. Signed: JR Michael Robert MDReport Verified Date/Time: 03/06/2020 11:59:05 Reading Location: [facility] Radiology Reading Room -COV2/RT-PCR ([facility])2020-03-05 23:14:00 Test Item Value Reference Range Interpretation Comments SARS-COV2/RT-PCR (test Negative Not Detected, Negative, code = 5438375) See external report for linked test SARS-COV-2 PERFORMING LAB [facility] (test code = 0299209) Negative result for this test determines that SARS-CoV-2 RNA was not present in the specimen above the Limit of Detection (LOD). However, Negative results do not preclude SARS-CoV-2 infection and should not be used as the sole basis for treatment or patient management decisions. Negative results mustbe combined with clinical observations, patient history, and epidemiological information. A false negative result may occur if a specimen is improperly collected, transported or handled. A false negative result should be considered if patient's recent exposures or clinical presentation indicate that COVID-19 (SARS-CoV-2) is likely and diagnostic tests for other causes of illness are negative. Re-testing should be considered in cases of suspected false negatives.The limit of detection for this assay is 100 copies/mL.This SARS CoV-2 test is a real-time RT-PCR test intended for the qualitative detection of nucleic acid from SARS-CoV-2 in a nasopharyngeal swab specimen collected from individuals susp ected of COVID-19 by their healthcare provider.This test has not been Food and Drug Administration (FDA) cleared or approved. This is a modified version of an approved Emergency Use Authorization (EUA) and is in the process of review by the FDA. Once authorized by the FDA, the issued EUA will be effective until the declaration that circumstances exist justifying the authorization of the emergency use of in vitro diagnostic tests for detection and/or diagnosis of COVID-19 is terminated under Section 564(b)(2) of the Act or the EUA is revoked under Section 564(g) of the Act.Testing was performed using the Crenshaw SARS-CoV-2 assay.Fact Sheet for Healthcare Providers:https://www.molecular.crenshaw/arun/ VJ_FDRA-EgV-1_UWG_Edxc_Yvlbn_80-986664.pdfFact Sheet for Healthcare Patients:https://www.molecular.ab daryl/arun/TN_LQGR-OcQ-6_Psiommq_Zmsx_Eqynu_UF_09-693515N4.pdfPerforming Laboratory:[facility] [place] [address] BASIC METABOLIC [id number] 14:02:00 Test Item Value Reference Range Interpretation Comments SODIUM (BEAKER) 140 meq/L 136-145 (test code = 381) POTASSIUM (BEAKER) 4.1 meq/L 3.5-5.1 (test code = 379) CHLORIDE (BEAKER) 105 meq/L 98-107 (test code = 382) CO2 (BEAKER) (test 26 meq/L 22-29 code = 355) BLOOD UREA NITROGEN 14 mg/dL 7-21 (BEAKER) (test code = 354) CREATININE (BEAKER) 1.12 mg/dL 0.57-1.25 (test code = 358) GLUCOSE RANDOM 204 mg/dL 70-105 H (BEAKER) (test code = 652) CALCIUM (BEAKER) 9.3 mg/dL 8.4-10.2 (test code = 697) EGFR (BEAKER) (test 62 mL/min/1.73 ESTIMA JILLIAN GFR IS code = 1092) sq m NOT ACCURATE CREATININE CLEARANCE IN PREDICTING GLOMERULAR FILTRATION RATE . ESTIMATED GFR I S NOT APPLICABLE FOR DIALYSIS PATIEN TS. Cattle Killer ID - BARNSTABLE FCBC W/PLT COUNT & AUTO [id number] 13:44:00 Test Item Value Reference Range Interpretation Comments WHITE BLOOD CELL COUNT (BEAKER) 7.9 K/ L 3.5-10.5 (test code = 775) RED BLOOD CELL COUNT (BEAKER) 4.89 M/ L 4.63-6.08 (test code = 761) HEMOGLOBIN (BEAKER) (test code = 14.1 GM/DL 13.7-17.5 410) HEMATOCRIT (BEAKER) (test code = 43.9 % 40.1-51.0 411) MEAN CORPUSCULAR VOLUME (BEAKER) 89.8 fL 79.0-92.2 (test code = 753) MEAN CORPUSCULAR HEMOGLOBIN 28.8 pg 25.7-32.2 (BEAKER) (test code = 751) MEAN CORPUSCULAR HEMOGLOBIN CONC 32.1 GM/DL 32.3-36.5 L (BEAKER) (test code = 752) RED CELL DISTRIBUTION WIDTH 13.9 % 11.6-14.4 (BEAKER) (test code = 412) PLATELET COUNT (BEAKER) (test 188 K/CU MM 150-450 code = 756) MEAN PLATELET VOLUME (BEAKER) 9.9 fL 9.4-12.4 (test code = 754) NUCLEATED RED BLOOD CELLS 0 /100 WBC 0-0 (BEAKER) (test code = 413) NEUTROPHILS RELATIVE PERCENT 65 % (BEAKER) (test code = 429) LYMPHOCYTES RELATIVE PERCENT 21 % (BEAKER) (test code = 430) MONOCYTES RELATIVE PERCENT 7 % (BEAKER) (test code = 431) EOSINOPHILS RELATIVE PERCENT 6 % (BEAKER) (test code = 432) BASOPHILS RELATIVE PERCENT 1 % (BEAKER) (test code = 437) NEUTROPHILS ABSOLUTE COUNT 5.16 K/ L 1.78-5.38 (BEAKER) (test code = 670) LYMPHOCYTES ABSOLUTE COUNT 1.64 K/ L 1.32-3.57 (BEAKER) (test code = 414) MONOCYTES ABSOLUTE COUNT (BEAKER) 0.53 K/ L 0.30-0.82 (test code = 415) EOSINOPHILS ABSOLUTE COUNT 0.50 K/ L 0.04-0.54 (BEAKER) (test code = 416) BASOPHILS ABSOLUTE COUNT (BEAKER) 0.05 K/ L 0.01-0.08 (test code = 417) IMMATURE GRANULOCYTES-RELATIVE 1 % 0-1 PERCENT (BEAKER) (test code = 2801) CT, HEART, [id number] 15:25:00Unlisted Reason for Exam - Click Yes and Enter Reason Below->Yes Unlisted Reason for Exam->i48.19Addendum BeginsREPORT STATUS:A I agree with the nonvascular findings detailedby Dr. Duval. Additional nonvascular findings include: *Mildly prominent subcarinal lymph nodes measure up to 1.2 cm and are likely reactive.*Mild groundglass opacities in the right upper lobe. Infectious/inflammatory process cannot be excluded in the correct clinical setting.*If patient is at high risk for lung neoplasm, then optional follow-up chest CT may be obtained in 12 months to reassess the pulmonary nodules. Otherwise, no routine follow-up imaging recommended. Signed: Vikas Chapa MDReport Verified Date/Time: 12/06/2019 15:25:22 Reading Location: [facility] [place] Diagnostic Imaging Reading Room [address] EndsAddendum BeginsREPORT STATUS:A ADDENDUM: The following other correct measurement, for the Watchman procedure, for Mr. Simental: The maximum cross-sectional diameter of the landing zone is approximately 22.9 x 25.9 mm and the cross-sectional area of 475 sq mm. The perimeter is estimated to be approximately 79 mm. The depth is measured to be approximately 23.7 mm in one orientation, and approximately and 35.9 mm in the orthogonal orientation. A typing error is noted. At the conclusion#2, patient has diffuse coronary artery calcification in the [place] coronary arteries. Patient is a 89 years old gentleman, not female. Signed: Harris Duval MDReportVerified Date/Time: 12/06/2019 14:23:12 Reading Location: [place] [address] CT Reading RoomAddendum EndsFINAL REPORT CT angiography of the left atrial appendage, 06-Dec-19 INDICATION:This is a very 89 years old female, presents for preprocedure Watchman assessment. TECHNIQUE: Spiral acquisition before and during intravenous contrast administration using a GE multidetector multislice cardiac CT scanner without prospective ECG triggering. Multiplanar reconstructions were performed interactively by the interpreting physician using an independent (Paper.li) workstation. Please refer to the contrast sheet scanned in the Cherry system for the amount and route of contrast given. This exam was performed according to our departmental dose-optimisation programme, which includes automatedexposure control, adjustment of the mA and/or kV according to patient size and/or use of iterative reconstruction technique. Dose modulation, iterative reconstruction, and/or weight based adjustment ofthe mA/kV was utilized to reduce the radiation dose to as low as reasonably achievable. FINDINGS: VASCULAR: No pericardial effusion is identified. The central pulmonary artery is mildly prominent. In the systolic data set, the left ventricle is at the upper limits of normal in size. The very distal septum and apex is thinned, and a small left ventricular apical thrombus is identified. The appearances laminated likely chronic in nature. Please see snapshot for details. In the four-chamber orientation it measure 5.1 x 12.3 mm with a height of 7 mm. The wall thinning of the distal LV likely representprior myocardial infarction. Coronary artery origins are normal. Diffuse coronary artery calcification is identified. Patient is post coronary artery bypass surgery. The left internal mammary artery isseen to connect to the distal LAD and is patent. A bypass graft is identified to the OM territory with long vascular stent present. There is an occluded bypass graft presumably to the diagonal territory. A bypass graft to the RCA territory, and long stent is also identified and is patent. There is another bypass graft identified at image 23 and only the stump is present indicating occlusion. The thoracic aorta is normal in course and calibre. No ectasia or aneurysmal dilation is seen. However, in the descending thoracic aorta, moderate calcification is seen with no obstructive lesion present. There is also mild to moderate circumferential calcification seen at the takeoff of the left subclavian artery though the left subclavian artery is well enhanced by contrast with no stenosis and the left internal mammary artery is also seen to be widely patent. Arch vessel branching pattern is normal. The cardiac chambers demonstrate normal atrioventricular and ventriculoarterial concordance, and systemicand pulmonary venous return. Pairs of pulmonary veins identified with no evidence of partial anomalous pulmonary venous return. Left atrial enlargement is identified. The left atrial appendage is wellseen. Bulky in the first and second dynamic data set, persistent hypodensity is identified in the tip of the left atrial appendage, likely represent thrombus versus slow flow. It is seen in the arterial data set image 52, and in the delay data set at image 106. The left atrial appendage morphology is NOT chicken wing. It appears to have a windsock appearance. Measurements for the WATCHMAN procedure are as follows (Daryl Walton et al J CV EP 2016): The maximum cross-sectional diameter of the landing zone is approximately 33.0 x 21.8 mm and the cross-sectional area of 595 sq mm. The perimeter is estimated to be approximately 89 mm. The depth is measured to be approximately 36.0 mm in one orientation, and approximately and 35.3 mm in the orthogonal orientation. NON-VASCULAR: The visualised thyroid gland is unremarkable. Patient is post median sternotomy. Some small scattered lymph nodes are seen as well as calcified lymph nodes seen in the mediastinum indicating prior granulomatous disease. A degree of mild bilateral gynecomastia is noted. In the lung windows, no endobronchial lesion is seen. No pleural effusions identified. Bilateral apical scarring is noted. There are number of tiny calcified noduleis seen indicating prior granulomatous disease, as well as small noncalcified nodules likely representing a spectrum of both calcified and noncalcified granuloma. See annotation in PACS for details. They are all less than 2 to 3 mm in diameter. Limited images of the upper abdomen reveals no gross abnormality. Calcified granuloma is identified in the spleen. In addition, there is also calcification seen in the left hemidiaphragm, for example at image 46 of the left hemidiaphragm. An hiatus hernia is identified. No acute bony pathology is seen. Some degenerative changes is noted. CONCLUSIONS: 1. Leftatrial enlargement is identified. Persistent hypodensity is identified in the left atrial appendage tip, likely represent thrombus versus slow flow. Correlate with echocardiography. Dimensions that maybe helpful for the Watchman placement as described above. The left atrial appendage morphology is not chicken wing. 2. Patient is post coronary artery bypass surgery and three patent bypass grafts are seen as described above. Diffuse cavitations identified in the [place] coronary arteries. 3. No acute aortic pathology is identified. Calcific atherosclerosis is seen. 4. No acute pulmonary pathology is identified. The central pulmonary artery is minimally prominent. Scattered calcified noncalcified nodules, all less than 2 to 3 mm in size, likely represent a spectrum of both calcified and noncalcifiedgranuloma. 5. Other findings as described above. 6. An addendum will be dictated by the Architecture Intern Radiologist regarding the nonvascular findings. Signed: Harris Duvaleport Verified Date/Time:12/06/2019 12:46:05 Reading Location: [place] [address] CT Reading Room -[id number] 11:55:00 Test Item Value Reference Range Interpretation Comments POC-CREATININE 1.1 mg/dL 0.6-1.3 : TESTED AT [facility]- ([facility]) (test [address], code = 1859) [facility] 7703 0: Cattle Killer/Techni tonio ID = [id number] for Verna Rivera POC-EGFR ([facility]) 63 mL/min/1.73M2 (test code = 1860) POCT HEMOGLOBIN [id number] 15:34:00 Test Item Value Reference Range Interpretation Comments HEMOGLOBIN A1C (test code = 4548-4) 7.4 % 4-5.6 A Lab Interpretation (test code = Abnormal 28902-7) [facility] [id number] 11:34:00 Test Item Value Reference Range Interpretation Comments GLUCOSE BEDSIDE TESTING (test code 167 mg/dL 70-110 H = GLUBED) GLUCOSE BEDSIDE [id number] 11:31:00 Test Item Value Reference Range Interpretation Comments GLUCOSE BEDSIDE TESTING (test code 182 mg/dL 70-110 H = GLUBED) GLUCOSE BEDSIDE [id number] 08:00:00 Test Item Value Reference Range Interpretation Comments GLUCOSE BEDSIDE TESTING (test code 127 mg/dL 70-110 H = GLUBED) CBC W/AUTO [id number] 04:31:00 Test Item Value Reference Range Interpretation [...] MANUAL DIFF REQUIRED NO DIFF/SCN CRITERIA SLIDE Violeta SPARROW (test code = MDIFF) CONSISTA NT WITH AUTO DIFFERENTIAL. COMPREHENSIVE METABOLIC [id number] 04:24:00 Test Item Value Reference Range Interpretation [...] TOTAL (test code = ALKP) CBC W/AUTO [id number] 04:13:00 Test Item Value Reference Range Interpretation [...] code = DIFF/SCN CRITERIA MDIFF) GLUCOSE BEDSIDE [id number] 20:29:00 Test Item Value Reference Range Interpretation Comments GLUCOSE BEDSIDE TESTING (test code 150 mg/dL 70-110 H = GLUBED) GLUCOSE BEDSIDE [id number] 17:02:00 Test Item Value Reference Range Interpretation Comments GLUCOSE BEDSIDE TESTING (test code 160 mg/dL 70-110 H = GLUBED) - XR FLUOROSCOPY 0-60 [id number] 15:26:00 Name: LANG SIMENTAL [place] : 1930 Age/S: 87 / M [address] [address] [place] Unit #: [id number] Loc: [place] [address] Phys: Buddy Diaz MD Acct: [id number] Dis Date: Status: ADM IN PHONE #: [phone] Exam Date: 04/29/2018914 FAX #: Reason: ERCP EXAMS: CPT: [id number] XR FLUOROSCOPY 0-60 MIN 72626 Fluoro Time: 55 SEC DAP (Gy m2): [...] MD PAGE 1 Signed Report Name: LANG SIMENTAL [place] : 1930 Age/S: 87 / M [address] [address] [place] Unit #: [id number] Loc: [place] [address] Phys: Buddy Diaz MD Acct: [id number] Dis Date: Status: ADMIN PHONE #: [phone] Exam Date: 04/29/2018914 FAX #: Reason: ERCP EXAMS: CPT: [id number] XR FLUOROSCOPY 0-60 MIN 39486 Fluoro Time: 55 SEC DAP (Gy m2): Air Kerma (mGy): <Continued> Technologist: Yasmine Pond RT(R) Trnscb Date/Time: 04/29/2018 (1526) [email or web address] Orig Print D/T: S: 04/29/2018 (1529) PAGE 2 Signed ReportGLUCOSE BEDSIDE [id number] 11:01:00 Test Item Value Reference Range Interpretation Comments GLUCOSE BEDSIDE TESTING (test code 167 mg/dL 70-110 H = GLUBED) - XR CHEST 1 [id number] 07:08:00 Name: LANG SIMENTAL [facility] : 1930 Age/S: 87 / M [address] [address] [place] Unit #: [id number] Loc: [place] [address] Phys: Buddy Diaz MD Acct: [id number] Dis Date: Status: ADM IN PHONE #: [phone] Exam Date: 04/29/2018 0655 FAX #: Reason: PRE-OP EXAMS: CPT: [id number] XR CHEST 1 V 81620 Fluoro Time: DAP (Gy m2): Air Kerma [...] MD PAGE 1 Signed Report Name: LANG SIMENTAL [facility] : 1930 Age/S: 87 / M [address] [address] [place] Unit #: [id number] Loc: [place] [address] Phys: Buddy Diaz MD Acct: [id number] Dis Date: Status: ADM IN PHONE #: [phone] Exam Date: 04/29/2018 0655 FAX #: Reason: PRE-OP EXAMS: CPT: [id number] XR CHEST 1 V 10272 Fluoro Time: DAP (Gy m2): Air Kerma (mGy): <Continued> Technologist:RT Garima(R) Trnscb Date/Time: 04/29/2018 (0708) [email or web address] Orig Print D/T: S: 04/29/2018 (0725) PAGE 2 Signed Report GLUCOSE BEDSIDE [id number] 06:53:00 Test Item Value Reference Range Interpretation Comments GLUCOSE BEDSIDE TESTING (test code 187 mg/dL 70-110 H = GLUBED) COMPREHENSIVE METABOLIC [id number] 04:26:00 Test Item Value Reference Range Interpretation [...] 50-136 H code = ALKP) CBC W/AUTO [id number] 04:10:00 Test Item Value Reference Range Interpretation [...] = NO DIFF/SCN CRITERIA MDIFF) GLUCOSE BEDSIDE [id number] 19:49:00 Test Item Value Reference Range Interpretation Comments GLUCOSE BEDSIDE TESTING (test code 198 mg/dL 70-110 H = GLUBED) GLUCOSE BEDSIDE [id number] 17:21:00 Test Item Value Reference Range Interpretation Comments GLUCOSE BEDSIDE TESTING (test code 215 mg/dL 70-110 H = GLUBED) GLUCOSE BEDSIDE [id number] 11:22:00 Test Item Value Reference Range Interpretation Comments GLUCOSE BEDSIDE TESTING (test code 204 mg/dL 70-110 H = GLUBED) GLUCOSE BEDSIDE [id number] 07:18:00 Test Item Value Reference Range Interpretation Comments GLUCOSE BEDSIDE TESTING (test code 163 mg/dL 70-110 H = GLUBED) COMPREHENSIVE METABOLIC [id number] 05:00:00 Test Item Value Reference Range Interpretation [...] 50-136 H code = ALKP) CBC W/AUTO [id number] 04:43:00 Test Item Value Reference Range Interpretation [...] = NO DIFF/SCN CRITERIA MDIFF) GLUCOSE BEDSIDE [id number] 16:31:00 Test Item Value Reference Range Interpretation Comments GLUCOSE BEDSIDE TESTING (test code 182 mg/dL 70-110 H = GLUBED)
== END 2021-02-09 02:18 | disposition home or self-care (01) ==
LOC: ER 20:22
DX: N39.0 Urinary tract infection, site not specified (principal); E11.9 Type 2 diabetes mellitus without complications; I10 Essential (primary) hypertension; I48.91 Unspecified atrial fibrillation; Z20.822 Contact with and (suspected) exposure to COVID-19; Z79.01 Long term (current) use of anticoagulants; Z79.82 Long term (current) use of aspirin
CPT/HCPCS: 96365; 96361; 93005; 87040 ×2; 87088; 85025; 87086; 80048; 36415; 83735; 87205 ×3; 85610; 80076; 83605; 87077 ×3; 87186 ×3; 84484; 83880; 0240U; 74177; 71045; 96375; 99284; Q9967; J7040; J7030; J2405; J0744; 81003; 81015

== ENCOUNTER 2021-03-26 11:32 | Day surgery (SDC) | payer OTHER ==
[2021-03-20 17:23] LABS: Hematocrit 39.7 % (39.6-49.0); Lymphocytes % 23.1 % (15.3-44.8); MPV 7.8 fL (7.6-11.3); RBC Red Blood Cell Count 4.63 M/uL (4.33-5.43)
[2021-03-20 17:26] LABS: Protime INR 2.14
[2021-03-20 17:32] LABS: Potassium 4.5 mmol/L (3.5-5.1)
[~2021-03-26 11:32] MED LIST: GEMCITABINE HCL 26.3 ML IVPB ONE
[2021-03-26] MEDS ORDERED: NA CHLORIDE 0.9% 1,000 ML ONE (12:11)
[2021-03-26] MEDS ORDERED: CEFAZOLIN/NS 1gm 1 GM/50 ML BAG ONE (12:11)
[2021-03-26] MEDS ORDERED: propofoL 200 MG/20 ML VIAL IV ONE (14:19)
[2021-03-26] MEDS ORDERED: LIDOCAINE 1% MPF 5 ML VIAL ONE (14:19)
[2021-03-26] MEDS ORDERED: FENTANYL CITR 100 MCG/2 ML ONE (14:19)
[2021-03-26] MEDS ORDERED: LIDOCAINE 1% MPF 2 ML AMPULE ONE (14:19)
[2021-03-26] MEDS ORDERED: OPIUM/BELLADONNA SUPPOS (30-16.2 MG) PR ONE (15:27)
[2021-03-26 16:07] VITALS: O2SAT 96
[2021-03-26] MEDS ORDERED: PHENAZOPYRIDINE 100MG TAB PO ONE ×3 (16:11→17:30)
[2021-03-26] MEDS ORDERED: CODEINE 30MG/APAP 300MG TAB PO PRN (16:11)
[2021-03-26 16:45] VITALS: BP 151/69; TEMP 96.9
[2021-03-26] MEDS ORDERED: LIDOCAINE JELLY 2% 5 ML SYRINGE TOP ONE (17:00)
[2021-03-26] MEDS ORDERED: CODEINE 30MG/APAP 300MG TAB ONE (17:26)
[2021-03-26] MEDS ORDERED: CODEINE 30MG/APAP 300MG TAB PO ONE (17:30)
--- NOTE | 2021-03-27 00:50 | OP ---
Surgeon: ALEISHA WONG Preoperative Diagnoses: 1.Bladder neck contracture. 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 Postoperative Diagnoses: 1.Bladder neck contracture. 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 3.Meatal stenosis. Principal Procedures: 1.Transurethral resection of bladder tumor approximately 2 cm involving left lateral wall. 2.Transurethral incision of the bladder neck/prostatic urethral biopsies. 3.Placement of urethral Calabrese catheter. 4.Instillation of gemcitabine 2 g in 50 cc normal saline intravesical chemotherapy. 5.Dilation of meatal stenosis. Indication For Procedure: Mr. Simental is an 89-year-old gentleman with a history of myocardial infa rction, coronary artery disease with a pacemaker, history of intestinal surgery, hypertension, and in sulin-dependent diabetes mellitus, who had previously undergone TURP in the , but presented with gross hematuria. Cystoscopic evaluation as an outpatient revealed a bladder wall tumor involving th e left lateral wall associated with thickening seen on the CT scan. Additionally, there was incomple te emptying at least partially due to residual obstruction at the bladder neck due to a contracture t here. As a result, I recommended removal of the bladder tumor with intravesical gemcitabine chemothe rapy, and I counseled the patient on the risks attendant to that to include the risk of allergic reac tion including anaphylaxis or rash as well as the potential for hematologic effects, and I also couns eled him on the need to manage the bladder neck contracture. Procedure Note: The patient was consented in the preoperative holding area before being transferred to the operative suite, where general anesthesia was induced. He was given Ancef 1 g IV antimicrobia l prophylaxis and pneumo boots were provided for DVT prophylaxis. He was previously given a prescrip tion for Bactrim Double Strength tablets starting yesterday for an infection noted in his urine preop eratively. The case was then begun using urethral sounds to dilate the meatus, for which there was e vidence of meatal stenosis. Sounds dilated the meatus to 30-Australian. After the meatus was dilated, I then utilized the visual obturator and a 26-Australian resectoscope to traverse the urethra and into the bladder. I decompressed the bladder of some cloudy urine and rinsed it on a couple of additional oc casions with normal saline. I then surveyed the bladder in its entirety, and while the mucosa throug hout was mildly erythematous, likely due to the ongoing infection/chronic cystitis, being actively tr eated with Bactrim, within the left lateral wall as previously observed, there was an approximately 2 cm diameter patch of tumor. As a result, I utilized cold cup biopsy forceps to biopsy and essential ly resect the entirety of the tumor from the left lateral wall. Multiple biopsies were taken in orde r to complete that resection. I then placed the resectoscope and a loop, and resected the bladder ne ck contracture and additionally took some prostatic urethral biopsies. Careful fulguration was then performed to ensure hemostasis before. I then removed the prostatic chips and sent them for patholog ic analysis as prostatic urethral biopsies. I ensured the entirety of the left lateral wall lesion w as fulgurated and then decompressed the bladder completely and assessed for any signs of bleeding. W hen no additional bleeding was noted from either the prostatic fossa or the left lateral wall resecti on, I then left the bladder partially filled and placed a 20-Australian 3-way Calabrese catheter. I decompre ssed the bladder completely and then retrograde instilled 2 g of gemcitabine in 50 cc normal saline i nto his bladder. A leg bag was associated with the catheter and the catheter was clamped and the inf usion site for the chemotherapy was plugged. The patient was then taken out of the lithotomy positio n, the leg bag and the catheter as well as his genitalia were draped off using green nonpermeable tow els as well as blue towels as necessary for absorbance, and he was then [facility] before being transferred to a stretcher and then transferred to the recovery room in good conditi on. Of note, a belladonna and opium suppositories were applied intra-anally for local anesthesia whi le the chemotherapy was in situ. Complications: None. Discharge Disposition: He should maintain the intravesical chemotherapy for 60 minutes to 90 minutes before draining it into a leg bag. The catheter may then be removed along after the chemotherapy is drained and the patient given an opportunity to void. If he is unable to void successfully, an 18-F rench coude-tip Calabrese catheter will be reinserted and he will need followup for a voiding trial. He should otherwise continue taking the Bactrim antimicrobial therapy prescribed preoperatively and akhil sneed schedule followup in [facility] in about 2 weeks to discuss the pathology of the resections. TREVOR/PORSHA Voice ID: [id number] Report ID: [id number]
== END 2021-03-26 17:54 | disposition home or self-care (01) ==
LOC: OR 11:32
PROVIDERS: ATTEND Urology
PROC: 0TBC8ZX Excision of Bladder Neck, Via Natural or Artificial Opening Endoscopic, Diagnostic (ICD-10-PCS; 2021-03-26)
PROC: 0TBD0ZX Excision of Urethra, Open Approach, Diagnostic (ICD-10-PCS; 2021-03-26)
PROC: 3E0K805 Introduction of Other Antineoplastic into Genitourinary Tract, Via Natural or Artificial Opening Endoscopic (ICD-10-PCS; 2021-03-26)
PROC: 0TBB8ZX Excision of Bladder, Via Natural or Artificial Opening Endoscopic, Diagnostic (ICD-10-PCS; principal; 2021-03-26 14:00)
DX: D09.0 Carcinoma in situ of bladder (principal); D49.4 Neoplasm of unspecified behavior of bladder; N32.89 Other specified disorders of bladder; N40.1 Benign prostatic hyperplasia with lower urinary tract symptoms; N20.0 Calculus of kidney; R33.9 Retention of urine, unspecified; N30.01 Acute cystitis with hematuria; N99.110 Postprocedural urethral stricture, male, meatal; Z20.822 Contact with and (suspected) exposure to COVID-19
CPT/HCPCS: 52234; 52204; 53200; 51720; 87088; 85025; 87086; 80048; 36415; 85610; 82947 ×2; 88305; 88307; 87077; 87186; U0003; J2704; J3010; J0690; J9201; J7030

== ENCOUNTER 2021-03-28 09:36 | Observation (INO) | payer OTHER ==
--- OUTSIDE RECORDS SUMMARY | 2021-03-28 09:40 | XMS REPORT | Continuity of Care Document ---
:1930 Author Organization [facility] t Address [address] [place] [address] Care Team Providers Name Role Phone CATALINO RAMIREZ Primary Care Physician Unavailable ROSALINA OVALLE Attending Clinician Unavailable Delaney SINGER Attending Clinician Rehan SINGER Attending Clinician ROSALINA OVALLE Admitting Clinician Unavailable Payers Payer Name Policy Type Policy Number Effective Date Expiration Date S [facility] MEDICARE A B [id number] 1996 00:00:00 [employer] INDEMNITY [id number] 2013 NON CONTR 00:00:00 Problems Condition Condition Condition Status Onset Resolution Last Treating Co mments Source Name Details Category Date Date Treatment Clinician Date 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 7-02 Co llege emia emia 00:00: of 00 Medicin e group home group home Disease Active 2016-03 [facility] current current 0-19 College use of use of 00:00: of amiodarone amiodarone 00 Me dicin e 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 Patient has developed a large incisiona l abdominal hernia. He is wearing an abdominal binder. He will make appointme nt to see his surgeon in near future. This will require surgical repair as soon as feasible. Atrial Atrial Disease Active Overview: [facility] fibrillati fibrillati 2 [facility] on on 00:00: g [facility] 00 note Medici n might be e different from the original. He had AF that required coumadin and then he had GI bleed.Cur rently HR is slow but irregular Meds:1. Toprol XL2. Amiodaron e 200 mg/d3. ASAFollow ed by Dr. Brandon Chronic Chronic Disease Active Overview: [place] or renal renal 10-26 [facility] insufficie insufficie 00:00: g of this of ncy ncy 00 note Medicin might be e different from the original. Cr has decreased from 1.6 ra [facility] Cr. 1.33 (1.25 in 2012) Hypertensi Hypertensi Disease Active Overview : [facility] on on 04-04 [facility] 00:00: g of this of 00 note Medicin might be e different from the original. [facility] 08/2013 A1c 6.5 % (6.1% in 2012) Cr. 1.33 (1.25 in 2012) Med: [place] 10/320; hctz 25 mg/d;Topr ol XL 50; Lasix 40 - good BP today Dyslipidem Dyslipidem Disease Active Overview : [facility] ia ia - [facility] 00:00: g of this note Medicin might be e different from the original. [facility] 08/2013 Total chol: 135 LDL 63 HDL: 57 T TSH: 1.56 Med: Advicor 500/20 bid; no flush DIABETES DIABETES Disease Active Overview: [facility] MELLITUS, MELLITUS, Eamon alanis WITH WITH g of this of VASCULAR VASCULAR note Medici n COMPLICATI COMPLICATI might be e ONS ONS different from the original. [facility] 08/2013 A1c 6.5 % (6.1% in 2012) Cr. 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 h/o CAD Med: [place], amiodaron e No angina or SOB GERD GERD Disease Active Overview: [facility] g of this of note Medicin might be e different from the original. Med: Nexium 20 q d ERECTILE ERECTILE Disease Active [facility] DYSFUNCTIO DYSFUNCTIO Co llege N N of Medicin e Allergies, Adverse Reactions, Alerts Allergy Allergy Status Severity Reaction(s) Onset Inactive Treating Comm ents Source Name Type Date Date Clinician No Known DA Active U BETSEY Allergelidia 04-27 Clear s 00:00: Kapoor 00 [facility] NO KNOWN Allergy Active [facility] ALLERGIE S Social History Social Habit Start Date Stop Date Quantity Comments Source Alcohol Comment Alcoholic [facility] Drinks/day: yes of Medici ne Exposure to Not sure [facility] Shakeel castro SARS-CoV-2 of Medicine (event) Alcohol intake 2020-08-21 2020-08-21 Current drinker [facility] 00:00:00 00:00:00 of alcohol of Medicine (finding) Sex Ass[birth year] At [birth year] M [facility] [employer] 00:00:00 00:00:00 of Medicine Smoking Status Start Date Stop Date Source Never smoker [facility] o f Medicine Medications Ordered Filled Start Stop Current Ordering Indication Dosage Frequency Signature Comments Components Source Medication Medication Date Date Medication? Clinician (SIG) Name Name amiodarone Yes 100mg Take 100 [facility] (PACERONE) 5-25 mg by [facility] 100 MG 16:36: mouth of tablet 47 daily. Medicin e valsartan Yes 320mg Take 320 [place] [facility] (DIOVAN) 5-25 mg by [place] 320 MG 16:36: mouth of tablet 47 daily. Medicin e folic acid Yes 1mg Take 1 mg [facility] (FOLVITE) 1 5-25 by mouth [facility] MG tablet 16:36: daily. of 47 Medicin e Multiple Yes Take by [facility] Vitamins-Mi 5-25 mouth. Colleg e nerals 16:36: of (OCUVITE 47 Medicin OR) e Coenzyme Yes 100mg Take 100 [facility] or Q10 5-25 mg by [place] (COQ-10) 16:36: mouth. of 100 MG CAPS 47 Medicin e Insulin Yes [id number] 32U 32 Units [facility] Glargine 5-25 daily. [place] [facility] Please of CRISTINA) 00 dispense Medicin 100 UNIT/ML 90 days' e SOPN supply Continuous Yes [id number] 1{each} 1 Each [facility] Blood Gluc 5-25 every 14 Colle ge Sensor 00:00: days. of (FREESTYLE 00 Medicin HE 14 e DAY SENSOR) MISC Insulin 2020- No [id number] 28U 28 Units [facility] Glargine 5-25 05-25 daily. [place] [facility]: 00:00 Please of CRISTINA) 00 :00 dispense Medicin 100 UNIT/ML 90 days' e SOPN supply Continuous 2020- No [id number] 1{each} 1 Each [facility] Blood Gluc 4-19 05-25 every 14 [facility] Sensor 00:00: 00:00 days. of (FREESTYLE 00 :00 Medicin HE 14 e DAY SENSOR) [facility] Glucagon Yes [id number] 1{each} 1 Each by [facility] (BAQSIMI 4-13 Nasal College TWO PACK) 3 00:00: route as of MG/DOSE 00 needed Medicin POWD (only for e emergency use for low blood sugar reaction). meclizine Yes TAKE 1 [facility] (ANTIVERT) 4-05 TABLET BY [facility] 25 MG 00:00: MOUTH of tablet 00 EVERYDAY Medicin AT BEDTIME e gabapentin 2019-03 Yes 100mg Take 100 [facility] (NEURONTIN) 2-01 mg by [place] 100 MG 00:00: mouth. of capsule 00 Medicin e amlodipine 2019-03 Yes TAKE 1 [facility] (NORVASC) 1-19 TABLET BY [facility] ge 2.5 MG 00:00: MOUTH of tablet 00 EVERY DAY Medicin e Continuous 2019-03 Yes [id number] 1{each} 1 Each [facility] Blood Gluc 1-09 daily. [employer] Compiler 00:00: of (FREESTYLE 00 Medicin HE 14 e DAY READER) JEFFERY simvastatin Yes TAKE 1 [place] or (ZOCOR) 40 9-14 TABLET BY [facility] ege MG tablet 00:00: MOUTH of 00 EVERY DAY Medicin e Insulin Pen Yes [id number] Use as [facility] Needle 31G 5-27 directed [facility] ge X 5 MM [facility] 00:00: DC Code: E of 00 11.9 Medicin e Glucagon, Yes [id number] 1mg Inject 1 [facility] rDNA, 4-27 mg as [place] (GLUCAGON 00:00: directed of EMERGENCY) 00 as needed. Med icin 1 MG KIT For low e blood sugar reaction Insulin 2020- No [id number] 7U 7-9 Units [facility] Aspart 4-23 08-25 3 times College (NOVOLOG 00:00: 00:00 daily of FLEXPEN) 00 :00 (before Medicin 100 UNIT/ML meals). e SOPN Please dispense 90 days' supply Insulin 2020- No [id number] 30U 30 Units [facility] Glargine 4-27 -25 daily. College (BASAGLAR 00:00: 00:00 Please of TIMOTHYMARIANNE) 00 :00 dispense Medicin 100 UNIT/ML 90 days' e SOPN supply XARELTO 15 2018-03 Yes TAKE 1 [facility] MG TABS 0-06 TABLET BY [place] 00:00: MOUTH of 00 EVERY DAY Medicin e amiodarone 2019-0 Yes 100mg Take 100 [facility] (PACERONE) 8-15 mg by [place] 100 MG 15:23: mouth of tablet 06 daily. Medicin e valsartan 2018- Yes 320mg Take 320 [place] [facility] (DIOVAN) 8-15 mg by [place] 320 MG 15:23: mouth of tablet 06 daily. Medicin e Apixaban 2018-0 Yes 1{tbl} Take 1 Tab [facility] (ELIQUIS) 8-15 by mouth Colleg e 2.5 MG TABS 15:23: daily. of 06 Medicin e diphenhydrA Yes 25mg Take 25 mg [facility] MINE 8-15 by mouth [place] (BENADRYL) 15:23: at of 25 MG 06 bedtime. Medicin capsule e folic acid Yes 1mg Take 1 mg [facility] (FOLVITE) 1 8-15 by mouth [facility] MG tablet 15:23: daily. of 06 Medicin e Multiple Yes Take by [facility] Vitamins-Mi 8-15 mouth. Shakeel e nerals 15:23: of (OCUVITE 06 Medicin OR) e Ursodiol Yes Take by [facility] 500 MG TABS 8-15 mouth. Colleg e 15:22: of 15 Medicin e Continuous 2018-0 Yes [id number] 1{each} 1 Each [facility] Blood Gluc 8-15 daily. [employer] 00:00: of (FREESTYLE 00 Medicin HE 14 e DAY READER) JEFFERY Continuous 2018-0 Yes [id number] 1{each} 1 Each [facility] Blood Gluc 8-15 every 14 Colle ge Sensor 00:00: days. of (FREESTYLE 00 Medicin HE 14 e DAY SENSOR) MISC Continuous 0 2019- No [id number] 1{each} 1 Each [facility] Blood Gluc 8-15 08-15 daily. Colleg e Directory Compiler 00:00: 00:00 of (FREESTYLE 00 :00 Medicin HE 14 e DAY READER) JEFFERY Continuous 2019- No [id number] 1{each} 1 Each [facility] Blood Gluc 8-15 08-15 every 14 [facility] Sensor 00:00: 00:00 days. of (FREESTYLE 00 :00 Medicin HE 14 e DAY SENSOR) [facility] NOVOLOG 2019- No [id number] INJECT [facility] FLEXPEN 100 7-31 08-15 UNDER THE Co llege UNIT/ML 00:00: 00:00 SKIN 7 of SOPN 00 :00 UNITS 3 Medicin TIMES A e DAY (WITH MEALS) Glucose 2019- No CHECK [facility] Blood 7-24 08-15 GLUCOSE 4 College Strips (ONE 00:00: 00:00 TIMES of TOUCH ULTRA 00 :00 DAILY. DX: Me dicin TEST) E11.9 e Insulin Yes [id number] 30U 30 Units [facility] Glargine 7-23 [...] 00 EVERY DAY Medicin e Insulin Yes [id number] 7U 7-9 Units [facility] Aspart 5-21 3 times College (NOVOLOG 00:00: daily of FLEXPEN) 00 (before Medicin 100 UNIT/ML meals). e SOPN Glucagon, Yes [id number] 1mg Inject 1 [facility] rDNA, 5-21 mg as College (GLUCAGON 00:00: directed of EMERGENCY) 00 as needed. Med icin 1 MG KIT For low e blood sugar reaction Glucometer Yes [id number] Check [facility] 5-21 blood College 00:00: sugars 4 of 00 times Medicin daily; Dx e E11.9 Glucometer Yes [id number] Check [facility] 5-21 blood College 00:00: sugars 4 of 00 times Medicin daily; Dx e E11.9 furosemide Yes [id number] 40mg Take 1 Tab [facility] (LASIX) 40 9-24 by mouth Colle ge MG tablet 00:00: every of 00 Thursday, Medicin Thursday, e Thursday. esomeprazol 2012-03 Yes [id number] 20mg Take 1 Cap [facility] e (NEXIUM) 2-31 by mouth Colle ge 20 MG 00:00: every of capsule 00 morning Medicin (before e breakfast) . metoprolol 2012-03 Yes [id number] 25mg Take 1 Tab [facility] (TOPROL XL) 2-31 by mouth [facility] 25 MG XL 00:00: daily. of tablet 00 Medicin e esomeprazol 2012-03 Yes [id number] 20mg Take 1 Cap [facility] e (NEXIUM) 2-31 by mouth Colle ge 20 MG 00:00: every of capsule 00 morning Medicin (before e breakfast) . MULTIVITAMI Yes 1{tbl} Take 1 Tab [facility] N PO 2-01 by mouth College 00:00: daily. of 00 Medicin e MULTIVITAMI Yes 1{tbl} Take 1 Tab [facility] N PO 2-01 by mouth College 00:00: daily. of 00 Medicin e Immunizations Ordered Immunization Filled Immunization Date Status Commen ts Source Name Name Influenza (whole) 2012-12-24 Completed [facility] 00:00:00 of Medicine Influenza (whole) 2012-12-24 Completed [facility] 00:00:00 of Medicine Pneumococcal 2010-01-28 Completed [facility] ge Polysaccharide 00:00:00 of Medicin e Pneumococcal 2010-01-28 Completed [facility] ge Polysaccharide 00:00:00 of Medicin e Vital Signs Vital Name Observation Time Observation Value Comments Source HEIGHT 2020-03-06 05:51:00 172.7 cm WEIGHT 2020-03-06 05:51:00 70.171 kg HEIGHT 2020-03-06 05:51:00 172.7 cm WEIGHT 2020-03-06 05:51:00 70.171 kg Systolic blood 2020-08-21 21:29:00 126 mm[Hg] [facility] pressure Medicine Diastolic blood 2020-08-21 21:29:00 66 mm[Hg] [facility] Medicine Heart rate 2020-08-21 21:29:00 66 /min [facility] Respiratory rate 2020-08-21 21:29:00 18 /min [facility] Body height 2020-08-21 21:29:00 172.7 cm [facility] of [facility] Body weight 2020-08-21 21:29:00 74.571 kg [facility] BMI 2020-08-21 21:29:00 25.00 kg/m2 [facility] WEIGHT 2020-03-05 11:56:00 69.99 kg HEIGHT 2020-03-05 11:56:00 172.7 cm WEIGHT 2020-03-05 11:56:00 69.99 kg HEIGHT 2020-03-05 11:56:00 172.7 cm Systolic blood 2018-11-11 15:12:00 118 mm[Hg] [facility] pressure Medicine Diastolic blood 2018-11-11 15:12:00 62 mm[Hg] [facility] Medicine Heart rate 2018-11-11 15:12:00 50 /min [facility] Body height 2018-11-11 15:12:00 172.7 cm [facility] Body weight 2018-11-11 15:12:00 72.122 kg [facility] BMI 2018-11-11 15:12:00 24.18 kg/m2 [facility] Systolic blood 2018-11-11 15:12:00 118 mm[Hg] [facility] Medicine Diastolic blood 2018-11-11 15:12:00 62 mm[Hg] [facility] Medicine Heart rate 2018-11-11 15:12:00 50 /min [facility] Body height 2018-11-11 15:12:00 172.7 cm [facility] Body weight 2018-11-11 15:12:00 72.122 kg [facility] BMI 2018-11-11 15:12:00 24.18 kg/m2 [facility] Procedures Procedure Date / Time Performed Performing Clinician Sour e BASIC METABOLIC PANEL 2020-08-21 22:40:00 Dandre Baltazar [facility] LIPID PANEL 2020-08-21 22:40:00 Dandre Baltazar [facility] T4 FREE 2020-08-21 22:40:00 Delaney [facility] TSH 2020-08-21 22:40:00 Delaney [facility] C-PEPTIDE 2020-08-21 22:40:[facility] NO MICRO URINE RECEIVED 2020-08-21 22:40:00 [facility] POCT HEMOGLOBIN A1C 2020-08-21 21:59:00 Delaney [facility] POCT HEMOGLOBIN A1C 2018-11-11 15:34:00 Aysha Van [facility] Plan of Care Planned Activity Planned Date Details Comments Source Future Scheduled 2020-08-28 TETANUS SHOT (ADULT) [facility] Test 12:51:40 [code = TETANUS SHOT of Medi cine (ADULT)] Future Scheduled 2020-08-28 ANNUAL DIABETIC [facility] Test 12:51:40 RETINOPATHY of Medicine SCREENING [code = ANNUAL DIABETIC RETINOPATHY SCREENING] Future Scheduled 2020-08-28 ZOSTER VACCINE (1 of [facility] Test 12:51:40 2) [code = ZOSTER of Medicin e VACCINE (1 of 2)] Future Scheduled 2020-08-28 FALL SCREEN [code = [facility] Test 12:51:40 FALL SCREEN] of Medicine Future Scheduled 2020-08-28 MEDICARE AWV [facility] Test 12:51:40 (Initial) [code = of Medicin e MEDICARE AWV (Initial)] Future Scheduled 2020-08-28 FLU VACCINE > 6 [facility] C [facility] Test 12:51:40 MONTHS [code = FLU of Medici ne VACCINE > 6 MONTHS] Future Scheduled 2020-08-28 Hemoglobin A1c [facility] Test 12:51:40 measurement of Medicine (procedure) [code = 08034537] Future Scheduled 2020-08-28 Diabetic foot [facility] Col lege Test 12:51:40 examination of Medicine (regime/therapy) [code = 731583004] Future Scheduled 2020-08-21 MICROALBUMIN/CREAT Ordered: [facility] Test 16:42:57 URINE RATIO [code = 08/21/2020 of Medic ine 9318-7] Future Scheduled MEDICARE AWV [code = [place] [facility] [employer] Test MEDICARE AWV] of Medicine Future Scheduled TETANUS SHOT (ADULT) [place] [facility] Test [code = TETANUS SHOT of Medi cine (ADULT)] Future Scheduled ANNUAL DIABETIC [facility] C [facility] Test RETINOPATHY of Medicine SCREENING [code = ANNUAL DIABETIC RETINOPATHY SCREENING] Future Scheduled FALL SCREEN [code = [facility] Test FALL SCREEN] of Medicine Future Scheduled PREVNAR >= 65 [facility] Test (PCV13) [code = of Medicine PREVNAR >= 65 (PCV13)] Future Scheduled FLU VACCINE > 6 [facility] C [facility] Test MONTHS [code = FLU of Medici ne VACCINE > 6 MONTHS] Future Scheduled A1C TESTING EVERY 6 [facility] Test MONTHS [code = A1C of Medici ne TESTING EVERY 6 MONTHS] Future Scheduled Diabetic foot [facility] Test examination of Medicine (regime/therapy) [code = 172550212] Future Scheduled TSH [code = 09864-3] 1 Occurrences [facility] Test starting of Medicine 11/11/2018 until 11/25/2019 Future Scheduled T4 FREE [code = 1 Occurrences [facility] Test 3024-7] starting of Medicine 11/11/2018 until 11/25/2019 Future Scheduled HEMOGLOBIN A1C [code 1 Occurrences [facility] Test = 4548-4] starting of Medicine 11/11/2018 until 11/25/2019 Future Scheduled MICROALBUMIN/CREAT 1 Occurrences [facility] or College Test URINE RATIO [code = starting of Medic ine 9318-7] 11/11/2018 until 11/25/2019 Future Scheduled COMPREHENSIVE 1 Occurrences [facility] [employer] [facility] Test METABOLIC PANEL starting of Medicine [code = 49016-3] 11/11/2018 until 11/25/2019 Future Scheduled LIPID PANEL [code = 1 Occurrences [facility] College Test 44460-6] starting of Medicine 11/11/2018 until 11/11/2019 Encounters Start End Encounter Admission Attending Care Care Encounter Source Date/Time Date/Time Type Type Clinicians Facility Department ID 2021-01-04 Outpatient BEN OVALLE Surgery [id number] [facility] 18:46:04 2021-03-27 2021-03-27 [facility] [id number] [facility] 2021-03-25 2021-03-25 [facility] [id number] [facility] 2021-03-04 2021-03-04 ambulatory [facility] [id number] [facility] 2021-02-27 2021-02-27 ambulatory [facility] [id number] [facility] 2021-02-25 2021-02-25 ambulatory [facility] [id number] [facility] 2021-02-25 2021-02-25 ambulatory [facility] [id number] [facility] 2021-02-18 2021-02-18 ambulatory [facility] [id number] [facility] 2021-02-12 2021-02-12 ambulatory [facility] [id number] [facility] 2020-08-21 2020-08-22 Office Delaney [facility] [id number] [facility] 16:06:55 08:49:15 Visit , Dandre AMBULATOR [id number] College Y [id number] [id number] [place] [id number] e 2020-04-26 2020-04-26 Outpatient [facility] [id number] [facility] 00:00:00 00:00:00 2020-03-05 2020-03-05 Outpatient IDALIA DONALD [id number] [facility] 00:00:00 00:00:00 2019-12-06 2019-12-06 Outpatient [facility]EN GRAYSON [facility] [id number] [facility] 00:00:00 00:00:00 2018-11-11 2018-11-11 Office KAREN Van [id number] 10:07:06 11:03:16 Visit Aysha AMBULATOR [id number] Y [id number] [id number] 2018-11-11 2018-11-11 Office KAREN Van [id number] [facility] 10:07:06 11:03:16 Visit Aysha AMBULATOR [id number] College Y [id number] of [id number] [facility] 310 e Results Test Description Test Time Test Comments Results Result Comments Source TSH 2020-08-23 03:10:41 Test Item Value Reference Range Interpretation Comme nts THYROID STIMULATING HORMONE See_Comment Unless Otherwise Indicated, (test code = 23057-5) All Te sting Performed At: [facility], [address] [place] [address] Laboratory Dire ctor: Jey Figueroa M.D. CLIA Number [id number] [place]. [id number] [Auto mated message] The system which ge nerated this result transmitted ref erence range: 0.40 - 4.10 UIU/ML. Th e reference range was not used to int erpret this result as normal/abnormal . [facility] [id number] 03:10:41 Test Item Value Reference Range Interpretation Comments FREE T4 (test code = See_Comment Unless Otherwise 3024-7) Indicated, All Testing Performed At: [facility], [address] [place], [place] [address] Laboratory Dire ctor: Jey Figueroa M.D. CLIA Number [id number] Cap Accreditation N o. [id number] [Automated mess age] The system which ge nerated this result transmit jillian reference range: 0.80 - 1 .90 NG/DL. The reference r arturo was not used to interpr et this result as jean marie l/abnormal. [facility]-[id number] 12:31:55 Test Item Value Reference Range Interpretation Comments C-PEPTIDE (test code See_Comment This Method has = 1985-11) been standardiz ed against the WHO International Reference Reage nt for C-peptide of hu man insulin for imm unoassay, IRP code 84/510, es tablished 1985, from mauricio todd [employer] [place] for B iological Standards an d Control ([facility]). Unless Otherwise Indic ated, All Testing Perform ed At: [facility], [address] [place], [place] [address] 4 Laboratory Dire ctor: Jey Figueroa M.D. CLIA Number [id number] Cap Accreditation N o. [Automated mess age] The system which ge nerated this result transmit jillian reference range: 1.1 - 4. 4 NG/ML. The reference range was not used to interpret th is result as normal/abnormal . [facility] URINE [id number] 11:05:08 Test Item Value Reference Range Interpretation Comments NO MICRO URINE (NOTE) NOTE: Patien t urine was RECEIVED (test code = not pr ovided. Urine 9784) testing will be noted out if no urine specimen is received in an appropriate per iod of time. Unless Otherwise Indic ated, All Testing Perform ed At: [facility], [address] [place] [address] Laboratory Di kasey: Jey ferrari M.D. CLIA Number [id number] Cap Accreditati on No. [facility] Center[facility] METABOLIC [id number] 07:57:37 Test Item Value Reference Range Interpretation Comments GLUCOSE (test code = See_Comment H [Autom ated message] 9905-7) The system [email or web address] generated this result transmitted ref erence range: 70 - 99 MG/DL. The reference r arturo was not used to interpret this result as normal/abnor mal. BLOOD UREA NITROGEN See_Comment [Automa jillian message] (test code = 3091-6) The sys tem which generated this result transmitted ref erence range: 8 - 23 M G/DL. The reference r arturo was not used to interpret this result as normal/abnor mal. CREATININE (test code = See_Comment [Au tomated message] 2160-0) The system [email or web address] generated this result transmitted ref erence range: 0.80 - 1 .40 MG/DL. The refe rence range was not u sed to interpret this result as normal/abnor mal. EGFR AA (test code = See_Comment L [Autom ated message] 41084-7) The system [employer] generated this result transmitted ref erence range: >60 ML/MIN/1.73. Th e reference range was not used to int erpret this result as normal/abnormal . EGFR (test code = See_Comment L [Automate d message] 22901-6) The system [employer] generated this result transmitted ref erence range: >60 ML/MIN/1.73. Th e reference range was not used to int erpret this result as normal/abnormal . SODIUM (test code = See_Comment [Automa jillian message] 2951-2) The system [employer] generated this result transmitted ref erence range: 133 - 14 6 MEQ/L. The refe rence range was not u sed to interpret this result as normal/abnor mal. POTASSIUM (test code = See_Comment [Aut omated message] 1163-3) The system [employer] generated this result transmitted ref erence range: 3.5 - 5. 4 MEQ/L. The refe rence range was not u sed to interpret this result as normal/abnor mal. CHLORIDE (test code = See_Comment [Auto mated message] 5-0) The system [employer] generated this result transmitted ref erence range: 95 - 107 MEQ/L. The reference r arturo was not used to interpret this result as normal/abnor mal. CO2 (test code = See_Comment [Automated message] 1962-8) The system [email or web address] generated this result transmitted ref erence range: 19 - 31 MEQ/L. The reference r arturo was not used to interpret this result as normal/abnor mal. CALCIUM (test code = See_Comment Unless 56861-0) Otherwise Indic ated, All Testing Per formed At: [facility], [address] [facility], [place] [address] Laboratory Dire ctor: Jey ferrari M.D. CLIA Num silke [id number] Cap Accreditation N o. [id number] [Auto mated message] The sy stem which generated this result transmit jillian reference range : 8.5 - 10.5 MG/DL. The reference range was not used to int erpret this result as normal/abnormal . Lab Interpretation Abnormal (test code = 28932-9) [facility] [id number] 07:57:37 Test Item Value Reference Range Interpretation Comments CHOLESTEROL (test code See_Comment [Aut omated message] = 2092-3) The system [email or web address] generated this result transmitted ref erence range: <200 MG/ DL. The reference range was not used to int erpret this result as normal/abnormal . TRIGLYCERIDES (test See_Comment [Automa jillian message] code = 2571-8) The system [employer] generated this result transmitted ref erence range: <150 MG/ DL. The reference range was not used to int erpret this result as normal/abnormal . HDL CHOLESTEROL (test See_Comment L [Auto mated message] code = 5-9) The system [employer] generated this result transmitted ref erence range: >39 MG/D L. The reference range was not used to int erpret this result as normal/abnormal . LDL CHOLESTEROL See_Comment NOTE: CALCU LATED LDL CALCULATED (test code = IS B ASED ON ) CHRISTOPHE-ANSARI METHOD WHICHINCLUDES ADJUSTABLE TRIGLYCERIDE:VL DL CHOLESTEROL RAT IO.THIS FACTOR VARIES B Y MEASURED TRIGLY CERIDE AND NON-HDLCHOL ESTEROL CONCENTRATIONS WITH INCREASED CALCU LATED LDL SEENIN HIGH ER TRIGLYCERIDE OR LOWER NON-HDL SPECIME NS. FOR MOREINFORMATION , SEE CLIENT ANNOUNCE MENT AT [email or web address] [Automated mess age] The system [email or web address] generated this result transmitted ref erence range: <100 MG/ DL. The reference range was not used to int erpret this result as normal/abnormal . LDL/HDL RATIO (test See_Comment Unless code = 56351-8) Otherwise In dicated, All Testing Per formed At: [facility], [address] [place] [address] Laboratory Dire ctor: Jey ferrari M.D. CLIA Num silke [id number] Cap Accreditation N o. [id number] [Auto mated message] The sy stem which generated this result transmit jillian reference range : <3.55 RATIO. The refe rence range was not u sed to interpret this result as normal/abnor mal. Lab Interpretation Abnormal (test code = 32507-5) [facility] [id number] 21:59:00 Test Item Value Reference Range Interpretation Comments HEMOGLOBIN A1C (test code = 4548-4) 7.5 % 4.0-5.6 A Lab Interpretation (test code = Abnormal 81935-9) [facility], 2 [id number] 12:44:00Reason for Exam:->R06.02[facility] : 1930 Sex: MFINAL REPORT [...] IMPRESSION:No acute cardiopulmonary abnormalities. Signed: Vikas Chapa MDReport Verified Date/Time: 04/26/2020 12:44:31 RAD, CHEST, 1 VIEW, NON [id number] 11:59:00Reason for exam:->s/p PPM implantShould this be performed at the bedside?->YesR[facility]Name[facility] : 1930 Sex: MFINAL REPORT [...] MDReport Verified Date/Time: 03/06/2020 11:59:05 Reading Location: [facility] Radiology Reading Room -COV2/RT-PCR ([facility])2020-03-05 23:14:00 Test Item Value Reference Range Interpretation Comments SARS-COV2/RT-PCR (test Negative Not Detected, Negative, code = 7096064) See external report for linked test SARS-COV-[address] [facility] JOSELUIS (test code = 8601666) Negative result for this test determines that [...] the Crenshaw SARS-CoV-2 assay.Fact Sheet for Healthcare Providers:https://www.[employer].crenshaw/arun/ ZK_YNSP-YtW-1_HPJ_Tbmy_Npkwg_85-505454.pdfFact Sheet for Healthcare Patients:https://www.[employer].ab daryl/arun/DT_AVJJ-UgK-0_Ehntnnm_Xsnt_Ujgig_YO_70-736904N2.pdfPerforming Laboratory:[place] [address] [place] [address] BASIC METABOLIC [id number] 14:02:00 Test Item Value Reference Range Interpretation [...] S NOT APPLICABLE FOR DIALYSIS PATIEN TS. Master Electrician ID - [place] FCBC W/PLT COUNT & AUTO [id number] 13:44:00 Test Item Value Reference Range Interpretation [...] (BEAKER) (test code = 2801) CT, HEART, [id number] 15:25:00Unlisted Reason for Exam - Click Yes [...] MDReport Verified Date/Time: 12/06/2019 15:25:22 Reading Location: [facility] Diagnostic Imaging Reading Room -[address] EndsAddendum BeginsREPORT STATUS:A ADDENDUM: The following [...] has diffuse coronary artery calcification in the [place] coronary arteries. Patient is a 89 years old gentleman, not female. Signed: Harris Duval MDReportVerified Date/Time: 12/06/2019 14:23:12 Reading Location: [place] [address] [address] Reading RoomAddendum EndsFINAL REPORT CT angiography of the left atrial appendage, 06-Dec-19 INDICATION:This is a very 89 years old female, presents for preprocedure Watchman assessment. TECHNIQUE: Spiral acquisition before and during intravenous contrast administration using a GE multidetector multislice cardiac CT scanner without prospective ECG triggering. Multiplanar reconstructions were performed interactively by the interpreting physician using an independent ([employer]) workstation. Please refer to the contrast sheet scanned in the [employer] system for the amount and route of [...] described above. Diffuse cavitations identified in the [place] coronary arteries. 3. No acute aortic pathology is identified. Calcific atherosclerosis is seen. 4. No acute pulmonary pathology is identified. The central pulmonary artery is minimally prominent. Scattered calcified noncalcified nodules, all less than 2 to 3 mm in size, likely represent a spectrum of both calcified and noncalcifiedgranuloma. 5. Other findings as described above. 6. An addendum will be dictated by the Agent Telegrapher Radiologist regarding the nonvascular findings. Signed: Harris Duval MDReport Verified Date/Time:12/06/2019 12:46:05 Reading Location: [place] [address] [address] Reading Room -[id number] 11:55:00 Test Item Value Reference Range Interpretation Comments POC-CREATININE 1.1 mg/dL 0.6-1.3 : TESTED AT [facility]-KG ([facility]) (test [address], code = 1859) [facility] 7703 0: Master Electrician/Techni tonio ID = [id number] for Verna Rivera POC-EGFR ([facility]) 63 mL/min/1.73M2 (test code = 1860) POCT HEMOGLOBIN [id number] 15:34:00 Test Item Value Reference Range Interpretation Comments HEMOGLOBIN A1C (test code = 4548-4) 7.4 % 4-5.6 A Lab Interpretation (test code = Abnormal 96271-0) [facility] [id number] 11:34:00 Test Item Value Reference Range Interpretation Comments GLUCOSE BEDSIDE TESTING (test code 167 mg/dL 70-110 H = GLUBED) GLUCOSE BEDSIDE [id number] 11:31:00 Test Item Value Reference Range Interpretation Comments GLUCOSE BEDSIDE TESTING (test code 182 mg/dL 70-110 H = GLUBED) GLUCOSE BEDSIDE [id number] 08:00:00 Test Item Value Reference Range Interpretation Comments GLUCOSE BEDSIDE TESTING (test code 127 mg/dL 70-110 H = GLUBED) CBC W/AUTO [id number] 04:31:00 Test Item Value Reference Range Interpretation [...] DIFF REQUIRED NO DIFF/SCN CRITERIA SLIDE R EVIEW (test code = MDIFF) CONSISTA NT WITH AUTO DIFFERENTIAL. COMPREHENSIVE METABOLIC [id number] 04:24:00 Test Item Value Reference Range Interpretation [...] TOTAL (test code = ALKP) CBC W/AUTO [id number] 04:13:00 Test Item Value Reference Range Interpretation [...] code = DIFF/SCN CRITERIA MDIFF) GLUCOSE BEDSIDE [id number] 20:29:00 Test Item Value Reference Range Interpretation Comments GLUCOSE BEDSIDE TESTING (test code 150 mg/dL 70-110 H = GLUBED) GLUCOSE BEDSIDE [id number] 17:02:00 Test Item Value Reference Range Interpretation Comments GLUCOSE BEDSIDE TESTING (test code 160 mg/dL 70-110 H = GLUBED) - XR FLUOROSCOPY 0-60 [id number] 15:26:00 Name: LANG SIMENTAL [facility] : 1930 Age/S: 87 / M [address] Unit #: [id number] Loc: [place] [address] Phys: Buddy Diaz MD Acct: [id number] Dis Date: Status: ADM IN PHONE #: [phone] Exam Date: 04/29/2018 0915 FAX #: Reason: ERCP EXAMS: CPT: [id number] XR FLUOROSCOPY 0-60 MIN 17574 Fluoro Time: 55 SEC DAP (Gy m2): [...] Diaz MD PAGE 1 Signed Report Name: SUELLENLANG Galindo [facility] : 1930 Age/S: 87 / M [address] Unit #: [id number] Loc: [place] [address] Phys: Buddy Diaz MD Acct: [id number] Dis Date: Status: ADMIN PHONE #: [phone] Exam Date: 04/29/2018 0915 FAX #: Reason: ERCP EXAMS: CPT: [id number] XR FLUOROSCOPY 0-60 MIN 42189 Fluoro Time: 55 SEC DAP (Gy m2): Air Kerma (mGy): <Continued> Technologist: Yasmine Pond RT(R) Trnscb Date/Time: 04/29/2018 (152) [email or web address] Orig Print D/T: S: 04/29/2018 (4679) PAGE 2 Signed ReportGLUCOSE BEDSIDE [id number] 11:01:00 Test Item Value Reference Range Interpretation Comments GLUCOSE BEDSIDE TESTING (test code 167 mg/dL 70-110 H = GLUBED) - XR CHEST 1 [id number] 07:08:00 Name: LANG SIMENTAL [facility] : 1930 Age/S: 87 / M [address] Unit #: [id number] Loc: [place] [address] Phys: Buddy Diaz MD Acct: [id number] Dis Date: Status: ADM IN PHONE #: [phone] Exam Date: 04/29/201855 FAX #: Reason: PRE-OP EXAMS: CPT: [id number] XR CHEST 1 V 98091 Fluoro Time: DAP (Gy m2): Air Kerma [...] Diaz MD PAGE 1 Signed Report Name: MIESHACULLENLANG Medley [facility] : 1930 Age/S: 87 / M [address] Unit #: [id number] Loc: [place] [address] Phys: Buddy Diaz MD Acct: [id number] Dis Date: Status: ADM IN PHONE #: [phone] Exam Date: 04/29/2018 0655 FAX #: Reason: PRE-OP EXAMS: CPT: [id number] XR CHEST 1 V 95521 Fluoro Time: DAP (Gy m2): Air Kerma (mGy): <Continued> Technologist:RT Garima(R) Trnscb Date/Time: 04/29/2018 (707) [email or web address] Orig Print D/T: S: 04/29/2018 (0711) PAGE 2 Signed Report GLUCOSE BEDSIDE [id number] 06:53:00 Test Item Value Reference Range Interpretation Comments GLUCOSE BEDSIDE TESTING (test code 187 mg/dL 70-110 H = GLUBED) COMPREHENSIVE METABOLIC [id number] 04:26:00 Test Item Value Reference Range Interpretation [...] 50-136 H code = ALKP) CBC W/AUTO [id number] 04:10:00 Test Item Value Reference Range Interpretation [...] = NO DIFF/SCN CRITERIA MDIFF) GLUCOSE BEDSIDE [id number] 19:49:00 Test Item Value Reference Range Interpretation Comments GLUCOSE BEDSIDE TESTING (test code 198 mg/dL 70-110 H = GLUBED) GLUCOSE BEDSIDE [id number] 17:21:00 Test Item Value Reference Range Interpretation Comments GLUCOSE BEDSIDE TESTING (test code 215 mg/dL 70-110 H = GLUBED) GLUCOSE BEDSIDE [id number] 11:22:00 Test Item Value Reference Range Interpretation Comments GLUCOSE BEDSIDE TESTING (test code 204 mg/dL 70-110 H = GLUBED) GLUCOSE BEDSIDE [id number] 07:18:00 Test Item Value Reference Range Interpretation Comments GLUCOSE BEDSIDE TESTING (test code 163 mg/dL 70-110 H = GLUBED) COMPREHENSIVE METABOLIC [id number] 05:00:00 Test Item Value Reference Range Interpretation [...] 50-136 H code = ALKP) CBC W/AUTO [id number] 04:43:00 Test Item Value Reference Range Interpretation [...] = NO DIFF/SCN CRITERIA MDIFF) GLUCOSE BEDSIDE [id number] 16:31:00 Test Item Value Reference Range Interpretation Comments GLUCOSE BEDSIDE TESTING (test code 182 mg/dL 70-110 H = GLUBED)
[2021-03-28] MEDS ORDERED: LIDOCAINE 1% 20 ML MDV ONE ×2 (10:46)
[2021-03-28 11:10] LABS: Absolute Lymphocytes (CBC) 0.8 K/uL (0.7-4.9); Lymphocytes % 9.6 % (15.3-44.8); MPV 7.9 fL (7.6-11.3); RBC Red Blood Cell Count 4.32 M/uL (4.33-5.43)
[2021-03-28 11:14] LABS: Protime INR 1.04
[2021-03-28] MEDS ORDERED: CEFAZOLIN SODIUM 1 GM/VIAL ONE ×2 (11:18→20:25)
[2021-03-28] MEDS ORDERED: NA CHLORIDE 0.9% 500 ML ONE (11:18)
[2021-03-28] MEDS ORDERED: TETANUS & DIPHTHERIA TOX,ADULT 0.5 ML VIAL ONE (11:18)
--- NOTE | 2021-03-28 11:28 | RAD REPORT ---
EXAM DESCRIPTION: CT - CTHCSPWOC - 03/28/2021 11:06 am CLINICAL HISTORY: Trauma, head and neck injury. PAIN COMPARISON: No comparisons TECHNIQUE: Axial 5 mm thick images of the head were obtained. Axial 2 mm thick images of the cervical spine were obtained with sagittal and coronal reconstruction images generated and reviewed. All CT scans are performed using dose optimization technique as appropriate and may include automated exposure control or mA/KV adjustment according to patient size. FINDINGS: CT HEAD WITHOUT CONTRAST: No acute hemorrhage, hydrocephalus or extra-axial collection is identified.Mild generalized brain atr ophy is present with mild periventricular and deep white matter chronic microvascular ischemic change s.No areas of brain edema or midline shift. Normal variant kay cisterna magna seen. The paranasal sinuses and mastoids are clear.The calvarium is intact. CT CERVICAL SPINE WITHOUT CONTRAST: No fracture or subluxation.Mild lower cervical degenerative changes.No prevertebral soft tissues swel ling is identified. Bilateral carotid atherosclerosis. IMPRESSION: No acute intracranial or cervical spine findings.
[2021-03-28 11:29] LABS: ALT/SGPT 19 U/L (12-78); AST/SGOT 30 U/L (15-37); Albumin 3.1 g/dL (3.4-5.0); Alkaline Phosphatase 102 U/L (45-117); BUN Blood Urea Nitrogen 25 mg/dL (7-18); Bicarbonate 26 mmol/L (21-32); Bilirubin Direct 0.2 mg/dL (0-0.2); Bilirubin Total 0.7 mg/dL (0.2-1.0); Glucose Level 202 mg/dL (74-106); Magnesium 2.1 mg/dL (1.8-2.4); NT PRO-BNP 932 pg/mL (<450); Potassium 3.9 mmol/L (3.5-5.1); Protein, Total 7.3 g/dL (6.4-8.2); Sodium Level 137 mmol/L (136-145); Troponin (Emerg Dept Use Only) < 0.02 ng/mL (0.0-0.045)
[2021-03-28] MEDS ORDERED: ONDANSETRON 4 MG/2 ML VIAL ONE (11:37)
[2021-03-28] MEDS ORDERED: MECLIZINE HCL 12.5 MG TAB ONE (11:37)
--- NOTE | 2021-03-28 11:43 | ER ---
Nurse's Notes [facility] Name: Valente Armas Age: 89 yrs Sex: Male : 1930 Arrival Date: 03/28/2021 Time: 10:01 Bed 5 Private MD: Diagnosis: Dizziness and giddiness;Fall on same level, unspecified;Laceration of lip and oral cavity without foreign body;Weakness;Chronic atrial fibrillation Presentation: 03/28 10:15 Chief complaint: EMS states: DIZZY FALL AT HOME. Coronavirus screen: At this time, the bp client does not indicate any symptoms associated with coronavirus-19. Ebola Screen: No symptoms or risks identified at this time. Initial Sepsis Screen: Does the patient meet any 2 criteria? No. Patient's initial sepsis screen is negative. Does the patient have a suspected source of infection? No. Patient's initial sepsis screen is negative. Risk Assessment: Do you want to hurt yourself or someone else? Patient reports no desire to harm self or others. Onset of symptoms was March 28, 2021 at 10:00. 10:15 Method Of Arrival: EMS: [facility] bp 10:15 Acuity: BEBETO 3 bp 10:15 Care prior to arrival: Glucose check: 170. bp Triage Assessment: 10:15 General: Appears in no apparent distress. comfortable, Behavior is cooperative, bp appropriate for age, anxious. Pain: Complains of pain in face. EENT: No deficits noted. Neuro: No deficits noted. Cardiovascular: No deficits noted. Respiratory: No deficits noted. GI: No signs and/or symptoms were reported involving the gastrointestinal system. : No signs and/or symptoms were reported regarding the genitourinary system. Derm: No deficits noted. Musculoskeletal: No deficits noted. Injury Description: Abrasion sustained to nose and mouth. Historical: - Allergies: 10:23 No Known Allergies; bp - Immunization history:: Adult Immunizations unknown. - Social history:: Smoking status: Patient denies any tobacco usage or history of. Screenin:15 Abuse screen: Denies threats or abuse. Denies injuries from another. Nutritional bp screening: No deficits noted. Tuberculosis screening: No symptoms or risk factors identified. Fall Risk None identified. Assessment: 10:15 General: SEE TRIAGE NOTE. bp 11:15 Reassessment: No changes from previously documented assessment. Patient and/or family bp updated on plan of care and expected duration. Pain level reassessed. PT RETURNED FROM CT. LAC REPAIR COMPLETED. Vital Signs: 10:15 BP 150 / 80; Pulse 68; Resp 17; Temp 98; Pulse Ox 96% ; bp 11:15 BP 144 / 59; Pulse 87; Resp 16; Pulse Ox 99% ; bp ED Course: 10:01 Patient arrived in ED. dh3 10:07 Andrzej Arce, ALEAH is Primary Nurse. bp 10:15 Arm band placed on. bp 10:15 Patient has correct armband on for positive identification. Placed in gown. Bed in low bp position. Call light in reach. Side rails up X2. Adult w/ patient. 10:20 Brad Pete MD is Attending Physician. jose r 10:22 Triage completed. bp 10:50 Inserted saline lock: 20 gauge in right antecubital area, using aseptic technique. bp 11:05 CT Head C Spine In Process Unspecified. EDMS 11:15 Assist provider with laceration repair on mouth that was 2.5 cm. or less using sutures. bp Set up tray. Performed by Brad Pete MD Patient tolerated well. 11:23 Basic Metabolic Panel Sent. bp 11:39 Hermelindo Serra MD is Hospitalizing Provider. jose r 12:00 Carotid Artery Bilateral US In Process Unspecified. EDMS 12:11 XRAY Chest (1 view) In Process Unspecified. EDMS Administered Medications: 10:50 Drug: Lidocaine (1 %) 5 ml Volume: 5 ml; Route: Infiltration; bp 11:00 Drug: NS 0.9% 500 ml Route: IV; Rate: bolus; Site: right antecubital; bp 11:00 Drug: Tetanus-Diphtheria Toxoid Adult 0.5 ml {Studio Associate: [employer]. Exp: bp 08/17/2022. Lot #: [id number]. } Route: IM; Site: right gluteus; 11:41 Follow up: Response: No adverse reaction bp 11:00 Drug: Ancef (cefazolin) 1 grams Route: IVPB; Site: right antecubital; bp 11:40 Drug: Zofran (Ondansetron) 4 mg Route: IVP; Site: right antecubital; bp 11:41 Follow up: Response: Nausea is decreased bp 11:41 Drug: Meclizine 25 mg Route: PO; bp 11:41 Follow up: Response: No adverse reaction bp Outcome: 11:42 Decision to Hospitalize by Provider. [facility] 03/29 06:45 Condition: stable jordyn 06:45 Admitted to jordyn 10:49 Patient left the ED. eb Signatures: Dispatcher [employer] EDOK Brad Pete MD MD cha Herrera, Minda [facility] Andrzej Arce RN RN bp Botello, Elizabeth eb O'Farrell, Brenda, RN RN bo
--- NOTE | 2021-03-28 11:43 | EDPHYS ---
Physician Documentation [facility] Name: Valente Armas Age: 89 yrs Sex: Male : 1930 Arrival Date: 03/28/2021 Time: 10:01 Bed 5 Private MD: ED Physician Brad Pete HPI: 03/28 10:51 This 89 yrs old Male presents to ER via EMS with complaints of Fall Injury. jose r 10:51 Details of fall: The patient fell from an upright position, while walking. Onset: The jose r symptoms/episode began/occurred just prior to arrival. Associated injuries: The patient sustained injury to the head, nose and mouth, laceration, painful injury, swelling. Severity of symptoms: At their worst the symptoms were mild, in the emergency department the symptoms are unchanged. The patient has not experienced similar symptoms in the past. Historical: - Allergies: 10:23 No Known Allergies; bp - Immunization history:: Adult Immunizations unknown. - Social history:: Smoking status: Patient denies any tobacco usage or history of. ROS: 10:52 Constitutional: Negative for fever, chills, and weight loss, Eyes: Negative for injury, jose r pain, redness, and discharge, ENT: Negative for injury, pain, and discharge, Cardiovascular: Negative for chest pain, palpitations, and edema, Respiratory: Negative for shortness of breath, cough, wheezing, and pleuritic chest pain, Abdomen/GI: Negative for abdominal pain, nausea, vomiting, diarrhea, and constipation, Back: Negative for injury and pain, : Negative for injury, bleeding, discharge, and swelling, MS/Extremity: Negative for injury and deformity, Skin: Negative for injury, rash, and discoloration, Psych: Negative for depression, anxiety, suicide ideation, homicidal ideation, and hallucinations, Allergy/Immunology: Negative for hives, rash, and allergies, Endocrine: Negative for neck swelling, polydipsia, polyuria, polyphagia, and marked weight changes, Hematologic/Lymphatic: Negative for swollen nodes, abnormal bleeding, and unusual bruising. 10:52 Neck: Negative for injury or acute deformity. 10:52 Skin: Positive for pallor. 10:52 Neuro: Positive for dizziness. Exam: 10:52 Constitutional: This is a well developed, well nourished patient who is awake, alert, jose r and in no acute distress. Eyes: Pupils equal round and reactive to light, extra-ocular motions intact. Lids and lashes normal. Conjunctiva and sclera are non-icteric and not injected. Cornea within normal limits. Periorbital areas with no swelling, redness, or edema. ENT: Nares patent. No nasal discharge, no septal abnormalities noted. Tympanic membranes are normal and external auditory canals are clear. Oropharynx with no redness, swelling, or masses, exudates, or evidence of obstruction, uvula midline. Mucous membranes moist. Neck: Trachea midline, no thyromegaly or masses palpated, and no cervical lymphadenopathy. Supple, full range of motion without nuchal rigidity, or vertebral point tenderness. No Meningismus. Chest/axilla: Normal chest wall appearance and motion. Nontender with no deformity. No lesions are appreciated. Cardiovascular: Regular rate and rhythm with a normal S1 and S2. No gallops, murmurs, or rubs. Normal PMI, no JVD. No pulse deficits. Respiratory: Lungs have equal breath sounds bilaterally, clear to auscultation and percussion. No rales, rhonchi or wheezes noted. No increased work of breathing, no retractions or nasal flaring. Abdomen/GI: Soft, non-tender, with normal bowel sounds. No distension or tympany. No guarding or rebound. No evidence of tenderness throughout. Back: No spinal tenderness. No costovertebral tenderness. Full range of motion. Male : Normal genitalia with no discharge or lesions. MS/ Extremity: Pulses equal, no cyanosis. Neurovascular intact. Full, normal range of motion. Neuro: Awake and alert, GCS 15, oriented to person, place, time, and situation. Cranial nerves II-XII grossly intact. Motor strength 5/5 in all extremities. Sensory grossly intact. Cerebellar exam normal. Normal gait. Psych: Awake, alert, with orientation to person, place and time. Behavior, mood, and affect are within normal limits. 10:52 ECG was reviewed by the Attending Physician. 10:52 Skin: Appearance: Color: pale, Temperature: normal temperature, Moisture: normal moisture, petechiae, not noted, ecchymosis, not noted, flushing, not noted, diaphoresis is not appreciated. Vital Signs: 10:15 BP 150 / 80; Pulse 68; Resp 17; Temp 98; Pulse Ox 96% ; bp 11:15 BP 144 / 59; Pulse 87; Resp 16; Pulse Ox 99% ; bp MDM: 10:20 Patient medically screened. [facility] 03/28 10:46 Order name: Basic Metabolic Panel [facility] 03/28 10:46 Order name: CBC with Diff; Complete Time: 11:22 [facility] 03/28 10:46 Order name: LFT's; Complete Time: 11:33 [facility] 03/28 10:46 Order name: Magnesium; Complete Time: 11:33 [facility] 03/28 10:46 Order name: NT PRO-BNP; Complete Time: 11:33 [facility] 03/28 10:46 Order name: PT-INR; Complete Time: 11:22 [facility] 03/28 10:46 Order name: Troponin (emerg Dept Use Only); Complete Time: 11:33 [facility] 03/28 10:46 Order name: XRAY Chest (1 view); Complete Time: 13:04 [facility] 03/28 10:46 Order name: Basic Metabolic Panel; Complete Time: 11:33 [facility] 03/28 13:44 Order name: SARS-COV-2 RT PCR (Document "Date of Onset" if Symptomatic) [facility] 03/28 18:38 Order name: SARS-COV-2 RT PCR [facility] 03/28 21:05 Order name: Troponin I [facility] 03/29 04:37 Order name: CBC with Automated Diff [facility] 03/29 04:39 Order name: Basic Metabolic Panel [facility] 03/28 10:46 Order name: EKG; Complete Time: 10:46 [facility] 03/28 10:46 Order name: Cardiac monitoring; Complete Time: 11:00 [facility] 03/28 10:46 Order name: EKG - Nurse/Tech; Complete Time: 11:00 [facility] 03/28 10:46 Order name: IV Saline Lock; Complete Time: 11:00 [facility] 03/28 10:46 Order name: Labs collected and sent; Complete Time: 11:23 [facility] 03/28 10:46 Order name: O2 Per Protocol; Complete Time: 10:59 [facility] 03/28 10:46 Order name: O2 Sat Monitoring; Complete Time: 10:59 [facility] 03/28 10:47 Order name: CT Head C Spine; Complete Time: 11:33 [facility] 03/28 11:08 Order name: Carotid Artery Bilateral US; Complete Time: 13:04 03/28 11:50 Order name: CONS Physician Consult [facility] 03/28 10:46 Order name: Dressing - Wound; Complete Time: 11:29 jose r 03/28 10:46 Order name: Gloves, Sterile; Complete Time: 11:00 jose r 03/28 10:46 Order name: Setup Suture Tray; Complete Time: 11:00 jose r EC:52 Rate is 79 beats/min. Rhythm is irregularly irregular. QRS [place] is Normal. AL interval jose r is normal. QRS interval is normal. QT interval is normal. No Q waves. T waves are Normal. No ST changes noted. Clinical impression: Atrial Fibrillation. Interpreted by me. Reviewed by me. Administered Medications: 10:50 Drug: Lidocaine (1 %) 5 ml Volume: 5 ml; Route: Infiltration; bp 11:00 Drug: NS 0.9% 500 ml Route: IV; Rate: bolus; Site: right antecubital; bp 11:00 Drug: Tetanus-Diphtheria Toxoid Adult 0.5 ml {Environmental Assistant: Jimmy Fairly. Exp: bp 08/17/2022. Lot #: [id number]. } Route: IM; Site: right gluteus; 11:41 Follow up: Response: No adverse reaction bp 11:00 Drug: Ancef (cefazolin) 1 grams Route: IVPB; Site: right antecubital; bp 11:40 Drug: Zofran (Ondansetron) 4 mg Route: IVP; Site: right antecubital; bp 11:41 Follow up: Response: Nausea is decreased bp 11:41 Drug: Meclizine 25 mg Route: PO; bp 11:41 Follow up: Response: No adverse reaction bp Disposition Summary: 03/28/21 11:42 Hospitalization Ordered Hospitalization Status: Observation jose r Provider: Hermelindo Serra jose r Condition: Fair jose r Problem: new jose r Symptoms: have improved jose r Bed/Room Type: Standard jose r Location: [facility] ER HOLD(03/28/21 21:48) Room Assignment: ERHOLD-(03/28/21 21:48) Diagnosis - Dizziness and giddiness jose r - Fall on same level, unspecified jose r - Laceration of lip and oral cavity without foreign body jose r - Weakness jose r - Chronic atrial fibrillation jose r Forms: - Medication Reconciliation Form jose r - SBAR form jose r Signatures: Dispatcher [employer] [facility] Leon, Aleta, RN Brad Saba MD MD cha Peltier, Brian, RN RN bp Corrections: (The following items were deleted from the chart) :48 11:42 Telemetry/MedSurg (observation) jose r velazquez :48 11:42 jose r velazquez
--- NOTE | 2021-03-28 12:21 | RAD REPORT ---
EXAM DESCRIPTION: RAD - Chest Single View - 03/28/2021 12:13 pm CLINICAL HISTORY: COUGH Chest pain. COMPARISON: Chest Single View dated 02/08/2021; Chest Pa And Lat (2 Views) dated 01/07/2021; Chest P a And Lat (2 Views) dated 10/03/2019; Chest Pa And Lat (2 Views) dated 09/29/2019 FINDINGS: Portable technique limits examination quality. The lungs are mildly emphysematous calcified pleural plaquing noted. The heart is mildly enlarged in size with a single lead pacer device. No displaced fractures.Sternotomy wires present. IMPRESSION: No acute intrathoracic process suspected.
--- NOTE | 2021-03-28 12:55 | RAD REPORT ---
EXAM DESCRIPTION: USCarotid Artery Spikqdcax79/30/2021 11:59 am CLINICAL HISTORY: syncope COMPARISON: None FINDINGS: The velocity of the right internal carotid artery equals 100 cm/sec. The right ICA/CCA rat io 1.2 The velocity of the left internal carotid artery equals 81 cm/sec. The left ICA/CCA ratio .9 Mild plaque is present within the carotid arteries. The vertebral arteries demonstrate antegrade flow IMPRESSION: Mild plaque within the carotid arteries without evidence of a hemodynamically significan t stenosis NASCET criteria used. Mild 0-49% stenosis Moderate 50-69% stenosis Severe 70-99% stenosis
--- NOTE | 2021-03-28 16:11 | P.SSS ---
Patient History Date of Service: 03/28/21 Reason for admission: WEAKNESS, FELL History of Present Illness: MR. KEN HAS A FIB, PPM. CONGESTIVE CARDIOMYOPATHY, DM WITH NEUROPATHY, PACEMAKER, LARGE ABDOMINAL HERNIAS, COMES AFTER A FALL FACE DOWN WHILE TRYING TO GET NEWSPAPER. WHILE LAYING DOWN HE IS NOT DIZZY BUT STANDING UP HE DOES. HE HAS NO CHEST PAIN. HE IS NOT SAFE TO GO HOME SO DR. GARCIA DECIDED TO OBSERVE HIM. HE HAS LIP LACERATION THAT WAS REPAIRED BY DR. GARCIA. Allergies soy Adverse Reaction (Verified 03/26/21 13:11) Nausea/Vomiting Home medications list reviewed: Yes Home Medications: Ezetimibe [Zetia] 10 mg PO BEDTIME 04/25/18 Folic Acid 1 mg PO DAILY 04/25/18 Insulin Aspart [Novolog] 6 units SQ AC 04/25/18 Simvastatin 40 mg PO DAILY 04/25/18 Ubidecarenone [Co Q-10] 200 mg PO BID 04/25/18 Valsartan 160 mg PO BEDTIME 04/25/18 Amiodarone HCl 100 mg PO DAILY 03/20/21 Amlodipine Besylate [Norvasc] 2.5 mg PO BEDTIME 03/20/21 Esomeprazole Magnesium 10 mg PO DAILY 03/20/21 Insulin Glargine,Hum.rec.anlog [Basaglar Kwikpen U-100] 24 unit SQ DAILY 03/20/21 Meclizine HCl 25 mg PO BEDTIME 03/20/21 Multivit-Min/FA/Lycopen/Lutein [Centrum Silver Tablet] 1 each PO DAILY 03/20/21 Rivaroxaban [Xarelto] 15 mg PO DAILY 03/20/21 Vit A,C & E/Lutein/Minerals [Ocuvite Tablet] 1 tab PO DAILY 03/20/21 Codeine/APAP [Tylenol W/Codeine #3 tab] 1 tab PO Q6HP PRN #10 tab 03/26/21 - Past Medical/Surgical History Diabetic: Yes -: flu -: iddm -: gerd -: dysrhythmia -: GA -: a fib -: hypertension -: hyperlipidemia -: macular degeneration -: CABG -: intestinal surgery -: ERCP -: CATARAT -: prostate sx - Family History parents -: Heart disease - Social History Alcohol use: No CD- Drugs: No Caffeine use: Yes Review of Systems 10-point ROS is otherwise unremarkable Gastrointestinal: Other (ANOREXIA) Physical Examination - Physical Exam General: Oriented x3, Mild distress HEENT: Atraumatic, PERRLA, Mucous membr. moist/pink, EOMI, Sclerae nonicteric Neck: Supple, 2+ carotid pulse no bruit, No LAD, Without JVD or thyroid abnormality Respiratory: Clear to auscultation bilaterally, Normal air movement Cardiovascular: Regular rate/rhythm, Normal S1 S2 Gastrointestinal: Normal bowel sounds, No tenderness Musculoskeletal: No tenderness Integumentary: No rashes Neurological: Normal gait, Normal speech, Normal strength at 5/5 x4 extr, Normal tone, Normal affect Lymphatics: No axilla or inguinal lymphadenopathy - Studies Laboratory Data (last 24 hrs) 03/28/21 11:00: PT 12.0, INR 1.04 03/28/21 11:00: WBC 8.70, Hgb 12.6 L, Hct 38.0 L, Plt Count 184 D 03/28/21 11:00: Sodium 137, Potassium 3.9, BUN 25 H, Creatinine 1.41 H, Glucose 202 H, Magnesium 2.1, Total Bilirubin 0.7, AST 30, ALT 19, Alkaline Phosphatase 102 - Diagnosis (Problem(s)) (1) Orthostatic hypotension Current Visit: Yes Status: Acute Plan: DIABETIC NEUROPATHY CAN DO THIS. CHECK ACTH STIMULATION TEST. (2) Diabetes Current Visit: Yes Status: Acute Qualifiers: Diabetes mellitus type: type 2 Diabetes mellitus complication status: with circulatory complication (3) Atrial fibrillation Current Visit: No Status: Chronic Plan: HE WAS OFF XARELTO FOR SURGERY. Qualifiers: Atrial fibrillation type: longstanding persistent Qualified Code(s): I48.11 - Longstanding persistent atrial fibrillation (4) Near syncope Current Visit: Yes Status: Acute Plan: HE MAY HAVE HAD POSTERIOR STROKE BUT CAN'T DETERMINE WITHOUT MRI HE HAS A PACEMAKER. - Disposition Disposition: ROUTINE DISCHARGE
[2021-03-28] MEDS ORDERED: ONDANSETRON 4 MG/2 ML VIAL IV PRN (19:24)
[2021-03-28] MEDS: CEFAZOLIN/NS 1gm 1 GM/50 ML BAG IVPB SCH (19:24)
[2021-03-28] MEDS ORDERED: MORPHINE 4 MG/ML SYR IV PRN (19:24)
[2021-03-28] MEDS ORDERED: MECLIZINE HCL 12.5 MG TAB PO PRN (19:24)
[2021-03-28] MEDS ORDERED: NA CHLORIDE 0.9% 1,000 ML IV SCH (19:24)
[2021-03-28] MEDS ORDERED: ACETAMINOPHEN 325 MG TABLET PO PRN (19:32)
[2021-03-28] MEDS ORDERED: FAMOTIDINE 20 MG/2 ML VIAL IV ONE (20:25)
[2021-03-28] MEDS ORDERED: NA CHLORIDE 0.9% 100 ML ONE (20:25)
[2021-03-28] MEDS ORDERED: NA CHLORIDE 0.9% 1,000 ML ONE (20:26)
[2021-03-28] MEDS: FAMOTIDINE 20 MG/2 ML VIAL IV SCH (20:27)
[2021-03-29] MEDS ORDERED: NA CHLORIDE 0.9% 50 ML ONE (01:11)
[2021-03-29] MEDS ORDERED: CEFAZOLIN SODIUM 1 GM/VIAL ONE (01:11)
[2021-03-29] MEDS: CEFAZOLIN/NS 1gm 1 GM/50 ML BAG IVPB SCH (01:17)
[2021-03-29 03:01] VITALS: TEMP 98.4
[2021-03-29 04:26] LABS: Absolute Lymphocytes (CBC) 1.2 K/uL (0.7-4.9); Hematocrit 35.2 % (39.6-49.0); Lymphocytes % 15.2 % (15.3-44.8); MPV 7.7 fL (7.6-11.3)
[2021-03-29 04:39] LABS: Potassium 4.7 mmol/L (3.5-5.1)
[2021-03-29 05:23] VITALS: BP 117/64
[2021-03-29 08:52] VITALS: O2SAT 94
== END 2021-03-29 10:57 | disposition home or self-care (01) ==
LOC: ER 09:36 → ERHOLD 11:49
PROVIDERS: ADMIT Internal Medicine; ATTEND Internal Medicine
PROC: 0CQ0XZZ Repair Upper Lip, External Approach (ICD-10-PCS; principal; 2021-03-28)
DX: I95.1 Orthostatic hypotension (principal); E11.40 Type 2 diabetes mellitus with diabetic neuropathy, unspecified; S01.511A Laceration without foreign body of lip, initial encounter; W18.30XA Fall on same level, unspecified, initial encounter; Y92.009 Unspecified place in unspecified non-institutional (private) residence as the place of occurrence of the external cause; I48.11 Longstanding persistent atrial fibrillation; I42.0 Dilated cardiomyopathy; K46.9 Unspecified abdominal hernia without obstruction or gangrene; I10 Essential (primary) hypertension; K21.9 Gastro-esophageal reflux disease without esophagitis; E78.5 Hyperlipidemia, unspecified; I25.2 Old myocardial infarction; H35.30 Unspecified macular degeneration; Z95.0 Presence of cardiac pacemaker; Z95.1 Presence of aortocoronary bypass graft; Z79.4 Long term (current) use of insulin; Z91.018 Allergy to other foods; Z23 Encounter for immunization; Z20.822 Contact with and (suspected) exposure to COVID-19; Z82.49 Family history of ischemic heart disease and other diseases of the circulatory system
CPT/HCPCS: 12011; 93005; 85025 ×2; 80048 ×2; 36415; 83735; 85610; 80076; 84484 ×2; 83880; 70450; 72125; 71045; 90471; 93880; 90714; 96375; 96374; 99285; U0003; J0690 ×5; J7040; J7030; J2405; G0378 ×3; J8597

== ENCOUNTER 2021-10-15 09:52 | Day surgery (SDC) | payer OTHER ==
--- NOTE | 2021-10-03 16:41 | RAD REPORT ---
EXAM DESCRIPTION: RAD - Abdomen 1 View (KUB) - 10/03/2021 4:23 pm CLINICAL HISTORY: Preop for TURP FINDINGS: The bowel gas pattern is unremarkable. Biliary stent in place. Small calcification right aspect of the pelvis likely phlebolith
[2021-10-03 17:01] LABS: Protime INR 1.36
[2021-10-03 17:02] LABS: Absolute Lymphocytes (CBC) 1.4 K/uL (0.7-4.9); Hematocrit 43.4 % (39.6-49.0); Lymphocytes % 19.9 % (15.3-44.8); MCV 88.5 fL (80-100)
[2021-10-03 17:16] LABS: Potassium 4.2 mmol/L (3.5-5.1)
[2021-10-03 17:24] LABS: SARS-CoV-2 Antigen Rapid Res Negative (Negative)
--- NOTE | 2021-10-07 14:00 | EKG ---
Test Date: 2021-10-03 Test Time: 16:00:58 Craft Manager: MEASUREMENT RESULTS: Intervals: Rate: 71 MS: QRSD: 144 QT: 414 QTc: 449 [place]: P: MS: QRS: -59 T: 94 INTERPRETIVE STATEMENTS: Atrial fibrillation Left bundle branch block Abnormal ECG Compared to ECG 03/28/2021 09:46:24 Left bundle-branch block now present Intraventricular conduction delay no longer present Electronically Signed On 10-07-21 13:52:21 CDT by Bob Whalen
[2021-10-15 10:26] LABS: SARS-CoV-2 Antigen Rapid Res Negative (Negative)
[2021-10-15] MEDS ORDERED: NA CHLORIDE 0.9% 1,000 ML ONE (10:26)
[2021-10-15] MEDS ORDERED: Gentamicin Inj 160 MG in NA CHLORIDE 0.9% 100 ML IVPB ONE (11:00)
[2021-10-15] MEDS ORDERED: AMPICILLIN SODIUM 2 GM in NA CHLORIDE 0.9% 100 ML IVPB ONE (11:00)
[2021-10-15] MEDS ORDERED: propofoL 200 MG/20 ML VIAL IV ONE (12:42)
[2021-10-15] MEDS ORDERED: FENTANYL CITR 100 MCG/2 ML ONE (12:42)
[2021-10-15] MEDS ORDERED: LIDOCAINE 1% MPF 5 ML VIAL ONE (12:43)
[2021-10-15] MEDS ORDERED: ROCURONIUM 50 MG/5 ML VIAL IV ONE (12:53)
[2021-10-15] MEDS ORDERED: OPIUM/BELLADONNA SUPPOS (30-16.2 MG) PR ONE ×2 (13:36→15:30)
[2021-10-15] MEDS ORDERED: CODEINE 30MG/APAP 300MG TAB PO PRN (13:36)
[2021-10-15] MEDS ORDERED: GLYCOPYRROLATE 0.2 MG/ML SYR ONE (15:02)
[2021-10-15] MEDS ORDERED: NEOSTIGMINE 1 MG/ML -10 ML VIAL ONE (15:05)
[2021-10-15] MEDS ORDERED: MEPERIDINE HCL 25 MG/ML SYR ONE (15:50)
[2021-10-15 16:12] VITALS: BP 126/58; TEMP 96; O2SAT 100
--- NOTE | 2021-10-15 21:27 | OP ---
Surgeon: ALEISHA WONG Preoperative Diagnoses: 1.Benign prostatic hypertrophy with lower urinary tract obstruction. 2.Recurrent/persistent urinary tract infection. Postoperative Diagnoses: 1.Benign prostatic hypertrophy with lower urinary tract obstruction. 2.Recurrent/persistent urinary tract infection. Principle Procedures: 1.Bipolar transurethral resection of the prostate. 2.Meatal dilation using sounds. Indication For Procedure: Mr. Simental is an 89-year-old gentleman with history of myocardial infarc tion status post coronary artery bypass graft x2 with pacemaker, history of intestinal surgery, hyper tension, and insulin-dependent diabetes, who had previously undergone a transurethral resection of th e prostate in the and also had history of ureterolithiasis, now with a 4.7 mm left lower pole r enal calculus. He initially had gross hematuria and bladder wall thickening on CT as well as incompl ete emptying of the bladder from residual obstruction at the bladder neck/partial bladder neck contra cture and an incidentally discovered left lateral wall bladder tumor status post TURBT and perioperat kristen intravesical gemcitabine 03/27/2021 revealing Ta high-grade urothelial carcinoma. He had continu ed recurrent infections in the urine since that time following cystoscopy on June 06, 2021 and subse quent cystoscopy on 08/29/2021 and since the likely source of the recurrent/persistent infection was incomplete emptying of his bladder, he was recommended for completion TURP. The potential that the s tone might be harboring the infection was discussed, but given the size of the stone and the limitati ons on treating it, we elected to proceed with the prostatic urethral obstruction first. Procedure In Detail: The patient was consented in the preoperative holding area before being transfe rred to operative suite where general anesthesia was induced. He was given ampicillin 2 g and gentam icin 160 mg IV antimicrobial prophylaxis. Pneumo boots were provided for DVT prophylaxis. He was pl aced in the lithotomy position, padded and secured to the table appropriately. His genitalia were pr epped using Hibiclens and he was draped in standard fashion. The case begun using urethral sounds to dilate the meatus and fossa navicularis from 18-Singaporean to 30-Singaporean with ease. I was then able to p ass the 26-Singaporean resectoscope with a visual obturator beyond some stenotic narrowing within the gilson a navicularis with gentle pressure. There was some evidence of scar tissue in that region. I was th en able to traverse the urethra and into the bladder with ease. Of note, there was right lateral lob ar hypertrophy that was asymmetric relative to the left and some anterior lobar overhang residual fro m his prior TURP in the 1970s. There was some slight contracture of the bladder neck as well. As a result, I utilized the resectoscope and the bipolar loop to begin to resect the intravesically projec ting component of the tissue elevating the median bar until it was flat with the bladder neck and the ureteral orifices and the trigone. The remainder of the bladder neck was resected including any con tractured segment until it was widely patent and then I resected any remaining lateral lobar hypertro phy extending to the apex of the prostate, which was equally resected until it was widely patent. In the end, all prostatic chips were Ellik evacuated from his bladder or removed under direct vision, a nd I diligently fulgurated the prostatic fossa completely and extensively until there was absolutely 0 oozing with the bladder completely decompressed and no inflow of fluid turned on with the outflow a llowing further decompression to lower the pressures. Once deemed completely hemostatic without even a trace of blood because we needed to get the patient back on his Eliquis as soon as possible, and w ith the prostatic fossa completely patent from the verumontanum into the bladder neck, I then refille d his bladder ensuring no prostate chips were remnant within, and removed the resectoscope. I then p assed a 22-Singaporean 3-way [place] catheter into his bladder with ease and placed 45 cc of sterile water i n the balloon. The patient was then taken out of the lithotomy position, his catheter was placed to moderate traction, and he was then transferred to a stretcher before being awakened from general anes thesia. He was then transferred to the recovery room in good condition. Complications: None. Discharge Disposition: He will observe his urine for the next couple of days and if it remains essen tially clear or minimally pink, I instructed him to resume his Eliquis on evening. If the u rine is still somewhat more pink than desired, they should resume it on Thursday or contact me via my o ffice Thursday morning if concerns about the ability to resume it. In that case, we may have to consid er a temporary course of subcutaneous Lovenox to try to prevent complications from prostatic urethral bleeding with the Eliquis. He will also be discharged with an antimicrobial, Keflex for 7 days unti l at least the catheter has been removed. Subsequent followup should be established as necessary dep ending on the patient's symptoms or in 3 months. Follow up to have the catheter removed should be ar ranged on either Thursday morning or at the latest Thursday. TREVOR/PORSHA Voice ID: [id number] Report ID: [id number]
== END 2021-10-15 16:54 | disposition home or self-care (01) ==
LOC: DS 09:52 → PRE 09:52 → DS 16:54
PROVIDERS: ATTEND Urology
PROC: 3C1ZX8Z Irrigation of Indwelling Device using Irrigating Substance, External Approach (ICD-10-PCS; 2021-10-15)
PROC: 0VT08ZZ Resection of Prostate, Via Natural or Artificial Opening Endoscopic (ICD-10-PCS; principal; 2021-10-15 11:30)
DX: N40.1 Benign prostatic hyperplasia with lower urinary tract symptoms (principal); N39.0 Urinary tract infection, site not specified; Z20.822 Contact with and (suspected) exposure to COVID-19; Z85.9 Personal history of malignant neoplasm, unspecified; E11.9 Type 2 diabetes mellitus without complications; Z79.4 Long term (current) use of insulin; Z95.0 Presence of cardiac pacemaker
CPT/HCPCS: 52630; 93005; 87088; 85025; 87086; 80048; 36415 ×2; 85610; 82947 ×3; 74018; 87811 ×2; 51700; J2704; J2710; J1580; J3010; J2175; J7030; J0290; 88305